=== PATIENT | male | born 1940 | race Caucasian/White ===

== ENCOUNTER 2016-09-10 08:46 | Observation (INO) | payer MEDICARE, OTHER ==
[~2016-09-10] VITALS: Ht 170.2 cm; Wt 82.7 kg
--- NOTE | ~2016-09-10 | HEMODYNAMI ---
PATIENT:OKSANA JENNINGS MEDICAL RECORD: [id number] : 36 LOCATION:[facility] ADMISSION DATE: 09/10/16 Generatedon:09/10/201613:42 Patient name: OKSANA JENNINGS Patient #: [id number] SSN: DO B: 1940 Date of study: 09/10/2016 Page: Of Hemodynamic Procedure Report Patient Data Patient Demographics Procedure consent was obtained First Name: OKSANA Gender: Male Last Name: MICHAELA : 1940 Patient #: [id number] Age: 76 year(s) Race: Additional ID: [id number] Contact details Address: [address] [place] [address] [facility] State: [place] City: [place] Zip code: [address] Past Medical History History of disease Date Diagnosis Comments CAD Hypertension Diabetes Allergies Allergen Reaction Date Comments Reported Other allergy 08/12/2014 Benadryl, Bactrim Other allergy 09/10/2016 Bactrim, Benadryl Admission Admission Data Admission Date: 09/10/2016 Admission Time: 8:46 Lab Results Lab Result Date: 09/10/2016 Lab Result Time: 0:00 Biochemistry Name Units Result Min Max CK-MB ng/ml 2.1 --(--*-)-- 0 3.6 Creatinine mg/dl 2.8 --(----)-* 0.6 1.3 Creatinine l 161 --(--*-)-- 21 215 Kinase Troponin l ng/ml 0.027 --(-*--)-- 0 0.06 CBC Name Units Result Min Max Hemoglobin g/dl 10.5 *-(----)-- 13.5 17.5 Procedure Procedure Types Cath Procedure Diagnostic Procedure LHC Coronaries only PCI Procedure Coronary Stent Initial Miscellaneous Procedures Moderate Sedation up to 45 minutes Procedure Description Procedure Date Procedure Date: 09/10/2016 Procedure Start Time: 13:12 Procedure End Time: 13:38 Procedure Staff Name Function Trevon Cooney MD Performing Physician Ashutosh Tello RT Scrub Tiffanie Molina RN Nurse Tiffani Nelson RT Monitor Procedure Data Cath Procedure Fluoroscopy Diagnostic fluoroscopy Total fluoroscopy Time: 4.9 time: 4.9 min min Diagnostic fluoroscopy Total fluoroscopy dose: dose: 743.75 mGy 743.75 mGy Contrast Material Contrast Material Type Amount (ml) Isovue 300 58 Entry Location Entry Primary Successful Side Size Upsize Upsize Entry Closure Becker ccessful Closure Location (Fr) 1 (Fr) 2 (Fr) Remarks Device Remarks Radial Right 6 Fr Mechanical artery Short Compression Femoral Right 5 Fr 6 Fr Exoseal artery Short Estimated blood loss: 10 ml Diagnostic catheters Device Type Used For End Catheter Placement Cordis 5Fr 3DRC Catheter Right Coronary (MP) Angiography Cordis 5Fr JL 4.0 Left Coronary Catheter (MP) Angiography Terumo 5Fr Harman 110cm Procedure catheter Procedure Complications No complications Procedure Medications Medication Administration Route Dosage Oxygen NC 2 l/min Heparin Flush Bag added to field 2 bags (1000units/500ml NS) Lidocaine 2% added to field 20 Radial Cocktail added to field 1 syringe (Verapomil 2mg/Nitro 400mcg/Heparin 1500units) Fentanyl I.V. 50 mcg Versed I.V. 1 mg Fentanyl I.V. 50 mcg Versed I.V. 1 mg Radial Cocktail I.A. 1 syringe (Verapomil 2mg/Nitro 400mcg/Heparin 1500units) Versed I.V. 0.5 mg Versed I.V. 0.5 mg Versed I.V. 0.5 mg Heparin Bolus I.V. 4000 units Hemodynamics Rest HGB: 10.5 (g/dl) Heart Rate: 72 (bpm) Snapshots Pre Cath Intra NCS Post Cath Vital Signs Time Heart Resp SPO2 NIBP (mmHg) Rhythm Pain Sedation Rate (ipm) (%) Status Level (bpm) 12:47:19 71 18 98 134/69(122) NSR 0 (11) 10(A) , No pain 12:51:53 61 20 98 141/61(96) NSR 0 (11) 10(A) , No pain 12:56:28 62 21 96 143/70(89) NSR 0 (11) 10(A) , No pain 13:01:07 61 18 97 149/64(121) NSR 0 (11) 9(A) , No pain 13:05:45 61 16 96 147/70(97) NSR 0 (11) 9(A) , No pain 13:10:22 66 19 99 140/72(85) NSR 0 (11) 9(A) , No pain 13:14:48 66 16 92 110/66(83) NSR 0 (11) 9(A) , No pain 13:19:12 62 18 95 129/64(100) NSR 0 (11) 9(A) , No pain 13:23:38 63 16 96 120/64(80) NSR 0 (11) 9(A) , No pain 13:28:06 65 18 98 132/60(101) NSR 0 (11) 9(A) , No pain 13:32:39 61 19 99 137/63(80) NSR 0 (11) 9(A) , No pain 13:37:13 61 9 98 131/62(88) NSR 0 (11) 9(A) , No pain Medications Time Medication Route Dose Verified Delivered Reason Note s Effectiveness by by 12:30:08 Oxygen NC 2 l/min Tiffanie Tiffanie used for Molina Molina chief dog license inspector RN 12:30:15 Heparin Flush added 2 bags Tiffanie Tiffanie used for Bag to Molina Molina procedure (1000units/500ml field RN RN NS) 12:30:23 Lidocaine 2% added 20ml Tiffanie Tiffanie used for to vial Molina Molina procedure field RN RN 12:53:55 Radial Cocktail added 1 Tiffanie Tiffanie used for (Verapomil to syringe Molina Molina procedure 2mg/Nitro field RN RN 400mcg/Heparin 1500units) 13:00:37 Fentanyl I.V. 50 mcg Tiffanie Tiffanie for sedation Molina Molina RN RN 13:00:41 Versed I.V. 1 mg Tiffanie Tiffanie for sedation Molina Molina RN RN 13:12:19 Fentanyl I.V. 50 mcg Tiffanie Tiffanie for sedation Molina Molina RN RN 13:12:23 Versed I.V. 1 mg Tiffanie Tiffanie for sedation Molina Molina RN RN 13:13:44 Radial Cocktail I.A. 1 Tiffaniemarlyn Lester for (Verapomil syringe Molina Ivet soto 2mg/Nitro RN 400mcg/Heparin 1500units) 13:13:50 Versed I.V. 0.5 mg Tiffanie Tiffanie for sedation Jesse Molina RN, RN 13:16:25 Versed I.V. 0.5 mg Tiffanie Tiffanie for sedation Jesse Molina RN RN 13:26:56 Versed I.V. 0.5 mg Tiffanie Tiffanie for sedation Jesse Molina RN RN 13:27:05 Heparin Bolus I.V. 4000 Tiffanie Tiffanie for units Jesse Molina anticoagulation RN court orderly Log Time Note 12:26:25 Tiffani Counts RT(R) sent for patient. Start room use. 12:: Time tracking: Regular hours 12::29 Plan of Care:Hemodynamics will remain stable., Cardiac rhythm will remain stable., Comfort level will be maintained., Respiratory function will remain adequate., Patient/ family verbilizes understanding of procedure., Procedure tolerated without complication., Recovers from procedure without complications.. 12:30:08 Oxygen 2 l/min NC was administered by Tiffanie Molina RN; used for procedure; 12:30:15 Heparin Flush Bag (1000units/500ml NS) 2 bags added to field was administered by Tiffanie Molina RN; used for procedure; 12:30:23 Lidocaine 2% 20ml vial added to field was administered by Tiffanie Molina RN; used for procedure; 12:44:40 Vital chart was started 12:44:58 Patient received from Pre/Post Procedure Room to CCL 3 Alert and oriented. Tansferred to table in Supine position. 12:44:59 Warm blankets applied, and catherine hugger turned on for patient comfort. 12:44:59 Correct patient and procedure confirmed by team. 12:45:01 Signed procedure consent form obtained from patient. 12:45:01 ECG and BP/O2 sat monitors applied to patient. 12:45:02 Full Disclosure recording started 12:45:07 Rhythm: sinus rhythm 12:45:23 H&P Date Dictated: 09/06/2016 Within 30 days and on chart., H&P Addendum completed by physician on day of procedure. (MUST COMPLETE FOR ALL OUTPATIENTS). 12:45:24 Pre-procedure instructions explained to patient. 12:45:24 Pre-op teaching completed and patient verbalized understanding. 12:45:25 Family in waiting room. 12:45:28 Patient NPO since Midnight. 12:45:45 Patient allergic to Other allergyBactrim, Benadryl 12:45:48 Is the patient allergic to Iodine/contrast media? No. 12:46:00 Is patient on blood thinner?Yes 12:46:02 ACC The patient was administered the following blood thiners within the last 24 hours: ACCPlavix 12:46:04 Patient diabetic? No. 12:46:08 Previous problem with sedation/anesthesia? No ? 12:46:08 Snore? Yes 12:46:09 Sleep apnea? No 12:46:11 Deviated septum? No 12:46:11 Opens mouth fully? Yes 12:46:12 Sticks out tongue? Yes 12:46:14 Airway obstruction? No ? 12:46:16 Dentures? Yes In 12:46:19 Pre procedure: right dorsailis pedis pulse 2+ Normal; easily identifiable; not easily obliterated 12:46:30 Modified Jason's test Ulnar < 7 seconds 12:46:34 Patient pain scale 0/10 ?. 12:46:46 IV patent on arrival in left antecubital with 0.9% NaCl at [facility]. 12:47:47 Lab Result : Creatinine 2.8 mg/dl 12:47:47 Lab Result : Creatinine Kinase 161 l 12:47:47 Lab Result : CK-MB 2.1 ng/ml 12:47:47 Lab Result : Hemoglobin 10.5 g/dl 12:47:47 Lab Result : Troponin l 0.027 ng/ml 12:51:37 Baseline sample Acquired. 12:51:41 Lab results completed and on chart. 12:51:44 Right Radial & Right Groin area was prepped with chlora-prep and draped in sterile fashion 12:51:45 Alarms reviewed by R. N. 12:51:45 Sharps counted by scrub and verified by R.N. 12:52:09 Use device set Radial Dx 12:52:10 Acist Syringe opened to sterile field. 12:52:10 Medline Cath Pack opened to sterile field. 12:52:11 Bag Decanter opened to sterile field. 12:52:11 Terumo 6Fr Slender Glidesheath opened to sterile field. 12:52:12 St Pj 260cm J .035 wire opened to sterile field. 12:52:12 Acist Hand Control opened to sterile field. 12:52:13 Acist Manifold opened to sterile field. 12:52:14 Tegaderm 4 x 4 opened to sterile field. 12:53:55 Radial Cocktail (Verapomil 2mg/Nitro 400mcg/Heparin 1500units) 1 syringe added to field was administered by Tiffanie Molina RN; used for procedure; 13:00:02 Zero performed for pressure channel P1 13:00:10 Final Timeout: patient, procedure, and site verified with staff and physician. All members of the team are in agreement. 13:00:13 Right Radial site verified by team. 13:00:16 Physical assessment completed. ASA score P 2 - A patient with mild systemic disease as per Trevon Cooney MD. 13:00:19 Sedation plan: IV Moderate Sedation Versed, Fentanyl 13:00:37 Fentanyl 50 mcg I.V. was administered by Tiffanie Molina RN; for sedation; 13:00:41 Versed 1 mg I.V. was administered by Tiffanie oMlina RN; for sedation; 13:12:13 Procedure started. 13:12:18 Local anesthetic to right radial artery with Lidocaine 2% by Trevon Cooney MD.INITIAL ACCESS ONLY 13:12:19 Fentanyl 50 mcg I.V. was administered by Tiffanie Molina RN; for sedation; 13:12:23 Versed 1 mg I.V. was administered by Tiffanie Molina RN; for sedation; 13:12:46 A 6 Fr Short sheath was inserted into the Right Radial artery 13:13:42 A Terumo 5Fr Harman 110cm catheter was advanced over the wire and used for Procedure. removed unable to cannulate 13:13:44 Radial Cocktail (Verapomil 2mg/Nitro 400mcg/Heparin 1500units) 1 syringe I.A. was administered by Trevon Cooney MD; for vasodilation; 13:13:50 Versed 0.5 mg I.V. was administered by Tiffanie Molina RN; for sedation; 13:16:16 Catheter removed. 13:16:20 Local anesthetic to right femoral artery with Lidocaine 2% by Trevon Cooney MD.ADDITIONAL ACCESS 13:16:25 Versed 0.5 mg I.V. was administered by Tiffanie Molina RN; for sedation; 13:16:28 A 5 Fr sheath was inserted into the Right Femoral artery 13:16:37 Use device set Multipack Set 13:16:41 Diagnostic Infinity 5Fr Multipack catheter opened to sterile field. 13:19:30 Terumo 5Fr Carson Sheath opened to sterile field. 13:19:58 SS [place] wire advanced. 13:20:24 A Cordis 5Fr 3DRC Catheter (MP) was advanced over the wire and used for Right Coronary Angiography. reomoved, unable to cannulate 13:21:17 Terumo ANGLE 260cm glide wire opened to sterile field. 13:22:35 Terumo 6Fr Carson Sheath opened to sterile field. 13:22:36 [employer] Launcher 6Fr HS I guide catheter opened to sterile field. 13:23:09 Sheath upsized to a 6 Fr Short. 13:23:24 6 Fr HS I guide catheter was inserted over the wire 13:23:30 RCA angiography performed. 13:23:47 Guide catheter removed. 13:23:53 A Cordis 5Fr JL 4.0 Catheter (MP) was advanced over the wire and used for Left Coronary Angiography. 13:24:03 Jorgensen Whisper J 300cm 0.014 guide wire opened to sterile field. 13:24:03 Lateral SV BasixCompak Inflation Kit opened to sterile field. 13:25:44 Cordis 6FR XBLAD 4.0 guide catheter opened to sterile field. 13:26:48 6 Fr XBLAD 4.0 guide catheter was inserted over the wire 13:26:56 Versed 0.5 mg I.V. was administered by Tiffanie Molina RN; for sedation; 13:27:05 Heparin Bolus 4000 units I.V. was administered by Tiffanie Molina RN; for anticoagulation; 13:29:05 Whisper wire advanced. 13:29:10 Inflation number: 1 A [place] Bracken 2.0 X 15 balloon was prepped and advanced across the Mid CX, then inflated to 17 MISSAEL for 0:11 (min:sec). 13:30:01 Balloon removed over the wire. 13:30:55 Inflation Number: 2 A Biofreedom 2.5 x 18 stent (No Cost Implant) was prepped and advanced across the Mid CX. The stent was deployed at 13 MISSAEL for 0:08 (min:sec). 13:31:15 Stent catheter was removed intact over wire. 13:31:15 Wire removed. 13:31:16 Guide catheter removed. 13:31:26 Sheath removed intact; hemostasis achieved with Exoseal to the Right Femoral artery. 13:31:28 Procedure ended.(Physican Out) 13:33:34 Fluoroscopy time 04.90 minutes. 13:33:39 Flurop Dose total: 743.75 13:33:39 Fluoroscopy dose: 743.75 mGy 13:33:58 Tegaderm 4 x 4 opened to sterile field. 13:34:03 Contrast amount:Isovue 300 58ml. 13:34:04 Sharps counted by scrub and verified by R.N. 13:34:05 Insertion/operative site no bleeding no hematoma. 13:34:09 Post-op/insertion site Right Femoral artery dressed using a 4 x 4 and Tegaderm. 13:34:31 Sheath removed intact; hemostasis achieved with Mechanical Compression to the Right Radial artery. 13:34:36 TR band inflated with 12cc of air. 13:34:41 Post right femoral artery:stable, clean and dry 13:34:47 Post right radial artery:stable, clean and dry 13:34:48 Post Procedure Pulses reassessed and unchanged 13:34:51 Post-procedure physical assessment completed. ASA score P 2 - A patient with mild systemic disease as per Trevon Cooney MD. 13:34:53 Post procedure rhythm: unchanged. 13:34:56 Estimated blood loss: 10 ml 13:34:57 Post procedure instruction explained to patient.Patient verbalizes understanding. 13:34:58 Patient needs reinforcement of post procedure teaching. 13:35:16 Procedure type changed to Cath procedure, Diagnostic procedure, LHC, Coronaries only, PCI procedure, Coronary Stent Initial, Miscellaneous Procedures, Moderate Sedation up to 45 minutes 13:35:17 Procedure and supply charges have been captured, reviewed, submitted and are correct. 13:35:21 Procedure Complication : No complications 13:35:23 See physician's report for complete and final results. 13:35:49 Terumo TR Band Standard opened to sterile field. 13:38:23 Vital chart was stopped 13:38:25 Report given to PCU. 13:38:28 Patient transfered to PCU with Bed. 13:38:36 Procedure ended. 13:38:36 Full Disclosure recording stopped 13:38:41 End room use (Document Last) 13:39:24 Cordis 6Fr Exoseal opened to sterile field. Intervention Summary Intervention Notes Time ActionType Lesion and Equipment Action# Pressure Duration Attributes Used 13:29:10 Inflate Mid CX [place] Sci 1 17 00:11 balloon Bracken 2.0 X 15 balloon 13:30:55 Place stent Mid CX Biofreedom 2 13 00:08 2.5 x 18 stent (No Cost Implant) Device Usage Item Name Manufacture Quantity Catalog Number Hospital Part Current Mini mal Lot# / Charge Number Stock Stock Serial# Code Acist Acist 1 81709 [id number] 259942 192716 20 Syringe Medical Systems Inc Medline Cardinal 1 [id number] 984741 55260 511175 5 Cath Pack Health Bag Microtek 1 2002S 772168 33147 332565 5 DecClaritics Medical Inc. Terumo 6Fr Terumo 1 [id number] 625530 651862 756257 [address] Pj St Pj 1 663321 306467 004974 220673 30 260cm J .035 wire Acist Hand Acist 1 26257 846432 944534 218048 5 Control Medical Systems Inc Acist Acist 1 10099 606003 892068 163020 5 Manifold Medical Systems Inc Tegaderm 4 3M 2 1626W 858273 176095 370397 5 x 4 Diagnostic Cardinal 1 [id number] 812505 02463 782179 30 Infinity Health 5Fr Multipack catheter Terumo 5Fr Terumo 1 [id number] 390847 824918 093288 40 Carson Sheath Cordis 5Fr Cardinal 1 651393 5 3DRC Health Catheter (MP) Terumo Terumo 1 [id number] 128538 911817 791360 5 ANGLE 260cm glide wire Terumo 6Fr Terumo 1 [id number] 890491 136500 561680 40 Carson Sheath Medtronic Medtronic 1 [id number] 347791 23232 371266 1 Launcher 6Fr HS I guide catheter Cordis 5Fr Cardinal 1 440572 5 JL 4.0 Health Catheter (MP) Jorgensen Jorgensen 1 [id number] 850027 437037 425158 5 Whisper J Vascular 300cm 0.014 guide wire Merit Merit 1 QU4371 330060 591149 865640 15 BasixCompak Medical Inflation Kit Cordis 6FR Cardinal 1 [id number] 033245 028598 677869 3 XBLAD 4.0 Health guide catheter [place] Sci [place] 1 [id number] 845762 147760 155130 1 [id number] Liquid State 2.0 X 15 balloon Biofreedom Biosensors 1 [id number] 208019 588471 5 [id number] 2.5 x 18 [place] SA stent (No Cost Implant) Terumo TR Terumo 1 [id number] 706806 669520 949756 40 Band Standard Cordis 6Fr Cardinal 1 EX600 146038 388885 050064 10 MOVL Terumo 5Fr Terumo 1 [id number] 337586 364239 761480 5 Harman 110cm catheter Signature Audit [place] Stage Time Signature Unsigned Intra-Procedure 09/10/2016 Tiffani 1:42:46 PM Counts RT(R) Signatures Monitor : Tiffani Signature : Counts RT Date : Time : [place] [id number] [place] [address]
--- NOTE | ~2016-09-10 | HEMODYNAMI ---
PATIENT:OKSANA JENNINGS MEDICAL RECORD: [id number] : 36 LOCATION:[facility] D.2114 ADMISSION DATE: 09/11/16 Generatedon:09/14/201615:29 Patient name: OKSANA JENNINGS Patient #: [id number] SSN: DO B: 1940 Date of study: 09/11/2016 Page: Of Hemodynamic Procedure Report Patient Data Patient Demographics Procedure consent was obtained First Name: OKSANA Gender: Male Last Name: MICHAELA : 1940 Patient #: [id number] Age: 76 year(s) Race: Additional ID: [id number] Contact details Address: [address] [place] [address] [facility] State: [place] City: [place] Zip code: [address] Past Medical History History of disease Date Diagnosis Comments CAD Hypertension Diabetes Allergies Allergen Reaction Date Comments Reported Other allergy 08/12/2014 Benadryl, Bactrim Other allergy 09/10/2016 Bactrim, Benadryl Admission Admission Data Admission Date: 09/11/2016 Admission Time: 10:06 Room #: D.2114 Height (in.): 67 BSA: 1.94 (m2) Height (cm.): 170.18 BMI: 28.56 (kg/m2) Weight (lbs.): 182.37 Weight (kg.): 82.72 Lab Results Lab Result Date: 09/11/2016 Lab Result Time: 7:05 Biochemistry Name Units Result Min Max BUN mg/dl 41 --(----)-* 7 18 CK-MB ng/ml 1.5 --(-*--)-- 0 3.6 Creatinine mg/dl 2.7 --(----)-* 0.6 1.3 Creatinine l 112 --(-*--)-- 21 215 Kinase Troponin l ng/ml 0.175 --(----)-* 0 0.06 CBC Name Units Result Min Max Hematocrit % 34 *-(----)-- 42 54 Hemoglobin g/dl 10.5 *-(----)-- 13.5 17.5 Procedure Procedure Types Cath Procedure PCI Procedure Coronary Stent Initial Miscellaneous Procedures Moderate Sedation up to 15 minutes Procedure Description Procedure Date Procedure Date: 09/11/2016 Procedure Start Time: 9:48 Procedure End Time: 10:11 Procedure Staff Name Function Vito Felix RT Monitor Trevon Cooney MD Performing Physician Lorrie Hallman RN Nurse Ashutosh Tello RT Scrub Procedure Data Cath Procedure Fluoroscopy Diagnostic fluoroscopy Total fluoroscopy Time: 3.9 time: 3.9 min min Diagnostic fluoroscopy Total fluoroscopy dose: 221 dose: 221 mGy mGy Contrast Material Contrast Material Type Amount (ml) Isovue 300 54 Entry Location Entry Primary Successful Side Size Upsize Upsize Entry Closure Succes sful Closure Location (Fr) 1 (Fr) 2 (Fr) Remarks Device Remarks Femoral Left 5 Fr 6 Fr Exoseal artery Short Estimated blood loss: 10 ml Procedure Complications No complications Procedure Medications Medication Administration Route Dosage Oxygen NC 2 l/min Heparin Flush Bag added to field 2 bags (1000units/500ml NS) Lidocaine 2% added to field 20 Versed I.V. 1 mg Fentanyl I.V. 50 mcg Versed I.V. 1 mg Fentanyl I.V. 50 mcg Heparin Bolus I.V. 4000 units Fentanyl I.V. 50 mcg Versed I.V. 0.5 mg Hemodynamics Rest BSA: 1.94 (m2) HGB: 10.5 (g/dl) O2 Consumption: Estimated: 182.09 (ml/min) O2 Co nsumption indexed: Estimated:93.86 (ml/min/m) Heart Rate: 15 (bpm) Snapshots Pre Cath Intra NCS Post Cath Vital Signs Time Heart Resp SPO2 NIBP (mmHg) Rhythm Pain Sedation Rate (ipm) (%) Status Level (bpm) 9:21:43 80 16 100 Measuring NSR 0 (11) 10(A) , No pain 9:25:36 74 14 100 192/114(145) NSR 0 (11) 10(A) , No pain 9:30:35 67 14 99 Measuring NSR 0 (11) 10(A) , No pain 9:37:02 64 16 100 170/83(156) NSR 0 (11) 10(A) , No pain 9:41:10 61 16 100 139/79(127) NSR 0 (11) 10(A) , No pain 9:46:09 70 18 99 Measuring NSR 0 (11) 10(A) , No pain 9:47:31 68 16 98 Time NSR 0 (11) 10(A) Exceeded , No pain 9:49:04 73 16 95 181/70(140) NSR 0 (11) 9(A) , No pain 9:53:36 72 17 96 186/72(133) NSR 0 (11) 9(A) , No pain 9:58:04 70 17 95 177/71(132) NSR 0 (11) 9(A) , No pain 10:02:34 73 17 99 181/72(121) NSR 0 (11) 9(A) , No pain 10:07:05 66 9 98 175/70(128) NSR 0 (11) 9(A) , No pain Medications Time Medication Route Dose Verified Delivered Reason Notes Effectiveness by by 9:21:25 Oxygen NC 2 Trevon Lorrie Per physician l/min Ivet Hallman RN 9:21:32 Heparin Flush added 2 Trevon Lorrie used for Bag to bags Ivet Hallman RN procedure (1000units/500ml field NS) 9:21:40 Lidocaine 2% added 20ml Trevon Lorrie used for to vial Ivet Hallman RN procedure field 9:43:39 Versed I.V. 1 mg Trevon Lorrie for sedation Ivet Hallman RN 9:43:45 Fentanyl I.V. 50 Trevon Lorrie for sedation mcg Ivet Hallman RN 9:46:03 Versed I.V. 1 mg Trevon Lorrie for sedation Ivet Hallman RN 9:46:05 Fentanyl I.V. 50 Trevon Lorrie for sedation mcg Ivet Hallman RN 9:48:20 Fentanyl I.V. 50 Trevon Lorrie for sedation mcg Ivet Hallman RN 9:48:32 Versed I.V. 0.5 Trevon Lorrie for sedation mg Ivet Hallman RN 9:52:02 Heparin Bolus I.V. 4000 Trevon Lorrie for dose units Ivet Hallman RN anticoagulation verified with dr cooney Procedure Log Time Note 9:00:31 Vito Felix RT(R) sent for patient. Start room use. 9:00:32 Time tracking: Regular hours 9:00:37 Plan of Care:Hemodynamics will remain stable., Cardiac rhythm will remain stable., Comfort level will be maintained., Respiratory function will remain adequate., Patient/ family verbilizes understanding of procedure., Procedure tolerated without complication., Recovers from procedure without complications.. 9:11:44 H&P Date Dictated: 09/06/2016 Within 30 days and on chart.. 9:12:32 Lab Result : Hemoglobin 10.5 g/dl 9:12:32 Lab Result : Hematocrit 34 % 9:12:32 Lab Result : BUN 41 mg/dl 9:12:32 Lab Result : Creatinine 2.7 mg/dl 9::53 Lab Result : BUN 44 mg/dl 9:13:21 Lab Result : Troponin l 0.175 ng/ml 9:13:21 Lab Result : Creatinine Kinase 112 l 9:13:21 Lab Result : CK-MB 1.5 ng/ml 9:13:40 Lab Result : Hematocrit 34 % 9:13:47 Patient Height : 67 cm 9:13:54 Patient Weight : 182.37 kg 9:18:07 Patient received from PCU to CCL 1 Alert and oriented. Tansferred to table in Supine position. 9:18:08 Warm blankets applied, and catherine hugger turned on for patient comfort. 9:18:09 Correct patient and procedure confirmed by team. 9:18:10 Signed procedure consent form obtained from patient. 9:18:11 ECG and BP/O2 sat monitors applied to patient. 9:19:53 Vital chart was started 9:21:25 Oxygen 2 l/min NC was administered by Lorrie Hallman RN; Per physician; 9:21:32 Heparin Flush Bag (1000units/500ml NS) 2 bags added to field was administered by Lorrie Hallman RN; used for procedure; 9:21:40 Lidocaine 2% 20ml vial added to field was administered by Lorrie Hallman RN; used for procedure; 9:28:36 Baseline sample Acquired. 9:28:43 Rhythm: sinus rhythm 9:28:58 Full Disclosure recording started 9:29:00 Pre-op teaching completed and patient verbalized understanding. 9:29:00 Pre-procedure instructions explained to patient. 9:29:02 Family in waiting room. 9:29:04 Patient NPO since Midnight. 9:29:06 Is the patient allergic to Iodine/contrast media? No. 9:30:09 Is patient on blood thinner?Yes 9:30:11 ACC The patient was administered the following blood thiners within the last 24 hours: ACCPlavix 9:30:14 Patient diabetic? Yes. 9:30:15 If diabetic: On Metformin? Unknown 9:30:18 Previous problem with sedation/anesthesia? No ? 9:30:20 Snore? Yes 9:30:21 Sleep apnea? No 9:30:22 Deviated septum? No 9:30:23 Opens mouth fully? Yes 9:30:24 Sticks out tongue? Yes 9:30:25 Airway obstruction? No ? 9:30:28 Dentures? Yes OUT 9:30:32 Pre procedure: left dorsailis pedis pulse 1+ Palpable, but thready & weak; easily obliterated 9:30:34 Patient pain scale 0/10 ?. 9:30:40 IV patent on arrival in left forearm with 0.9% NaCl at [facility]. 9:30:41 Lab results completed and on chart. 9:30:44 Left groin area was prepped with chlora-prep and draped in sterile fashion 9:30:52 Sharps counted by scrub and verified by R.N. 9:30:52 Alarms reviewed by R. N. 9:39:20 Use device set Femoral PCI 9:39:22 Tegaderm 4 x 4 opened to sterile field. 9:39:23 Acist Manifold opened to sterile field. 9:39:24 Acist Hand Control opened to sterile field. 9:39:24 Acist Syringe opened to sterile field. 9:39:25 Medline Cath Pack opened to sterile field. 9:39:25 Bag Decanter opened to sterile field. 9:39:26 Merit BasixCompak Inflation Kit opened to sterile field. 9:39:26 Jorgensen Whisper J 300cm 0.014 guide wire opened to sterile field. 9:39:26 Terumo 6Fr [place] Sheath opened to sterile field. 9:39:26 St Pj 260cm J .035 wire opened to sterile field. 9:41:33 Zero performed for pressure channel P1 9:43:20 --------ALL STOP TIME OUT------ 9:43:21 Final Timeout: patient, procedure, and site verified with staff and physician. All members of the team are in agreement. 9:43:23 Left groin site verified by team. 9:43:27 Physical assessment completed. ASA score P 2 - A patient with mild systemic disease as per Trevon Cooney MD. 9:43:32 Sedation plan: IV Moderate Sedation Versed, Fentanyl 9:43:39 Versed 1 mg I.V. was administered by Lorrie Hallman RN; for sedation; 9:43:45 Fentanyl 50 mcg I.V. was administered by Lorrie Hallman RN; for sedation; 9:45:37 MedPeach [employer] Lily Launcher 6Fr HS II SH guide catheter opened to sterile field. 9:46:03 Versed 1 mg I.V. was administered by Lorrie Hallman RN; for sedation; 9:46:05 Fentanyl 50 mcg I.V. was administered by Lorrie Hallman RN; for sedation; 9:48:00 Procedure started. 9:48:05 Local anesthetic to left femerol artery with Lidocaine 2% by Trevon Cooney MD.INITIAL ACCESS ONLY 9:48:20 Fentanyl 50 mcg I.V. was administered by Lorrie Hallman RN; for sedation; 9:48:32 Versed 0.5 mg I.V. was administered by Lorrie Hallman RN; for sedation; 9:49:27 Terumo 5Fr [place] Sheath opened to sterile field. 9:49:53 A 5 Fr sheath was inserted into the Left Femoral artery 9:50:23 Terumo ANGLE 260cm glide wire opened to sterile field. 9:51:42 Unable to advance sheath wire, Glidewire advanced into distal Aorta. 9:51:51 Sheath upsized to a 6 Fr Short. 9:52:02 Heparin Bolus 4000 units I.V. was administered by Lorrie Hallman RN; for anticoagulation; dose verified with dr cooney 9:52:10 6 Fr HS 2 SH guide catheter was inserted over the wire 9:52:17 ACC PCI Site: pRCA has 80% stenosis. 9:52:24 ACC PCI Site: mRCA has 80% stenosis. 9:52:26 ACC Pre-intervention MARIA C Flow is 3. 9:53:37 Whisper wire advanced. 9:53:55 Wire advanced across lesion. 9:56:28 Inflation number: 1 A Tollhouse [employer] Huron 3.0 X 15 balloon was prepped and advanced across the Mid RCA, then inflated to 13 MISSAEL for 0:10 (min:sec). 9:56:42 Balloon removed over the wire. 9:58:02 Inflation Number: 2 A Biofreedom 2.75 x 14 stent (No Cost Implant) was prepped and advanced across the Mid RCA. The stent was deployed at 15 MISSAEL for 0:10 (min:sec). 9:58:41 Stent catheter was removed intact over wire. 10:00:09 Inflation Number: 3 A Biofreedom 3.0 x 14 stent (No Cost Implant) was prepped and advanced across the Mid RCA. The stent was deployed at 17 MISSAEL for 0:10 (min:sec). 10:00:29 Stent catheter was removed intact over wire. 10:00:30 Wire removed. 10:00:31 Guide catheter removed. 10:00:33 ACC Post-intervention MARIA C Flow is 3. 10:00:42 Cordis 6Fr Exoseal opened to sterile field. 10:01:10 Sheath removed intact; hemostasis achieved with Exoseal to the Left Femoral artery. 10:01:23 Procedure ended.(Physican Out) 10:01:37 Fluoroscopy time 03.90 minutes. 10:01:40 Fluoroscopy dose: 221 mGy 10:01:40 Flurop Dose total: 221 10:01:44 Contrast amount:Isovue 300 54ml. 10:01:45 Sharps counted by scrub and verified by R.N. 10:01:50 Insertion/operative site no bleeding no hematoma. 10:01:53 Post-op/insertion site Left Femoral artery dressed using a 4 x 4 and Tegaderm. 10:01:54 Post Procedure Pulses reassessed and unchanged 10:01:57 Post-procedure physical assessment completed. ASA score P 2 - A patient with mild systemic disease as per Trevon Cooney MD. 10:02:07 Post procedure rhythm: unchanged. 10:02:09 Estimated blood loss: 10 ml 10:02:12 Patient needs reinforcement of post procedure teaching. 10:02:12 Post procedure instruction explained to patient.Patient verbalizes understanding. 10:02:18 Procedure type changed to Cath procedure, PCI procedure, Coronary Stent Initial, Miscellaneous Procedures, Moderate Sedation up to 15 minutes 10:02:22 Procedure Complication : No complications 10:03:31 Procedure and supply charges have been captured, reviewed, submitted and are correct. 10:11:12 Vital chart was stopped 10:11:13 See physician's report for complete and final results. 10:11:15 Report given to PCU. 10:11:17 Patient transfered to PCU with Bed. 10:11:20 Full Disclosure recording stopped 10:11:20 Procedure ended. 10:11:23 End room use (Document Last) Intervention Summary Intervention Notes Time ActionType Lesion and Equipment Action# Pressure Duration Attributes Used 9:56:28 Inflate Mid RCA Tollhouse Sci 1 13 00:10 balloon Huron 3.0 X 15 balloon 9:58:02 Place stent Mid RCA Biofreedom 2 15 00:10 2.75 x 14 stent (No Cost Implant) 10:00:09 Place stent Mid RCA Biofreedom 3 17 00:10 3.0 x 14 stent (No Cost Implant) Device Usage Item Name Manufacture Quantity Catalog Number Hospital Part Current Mini mal Lot# / Charge Number Stock Stock Serial# Code Tegaderm 4 1 [id number] [id number] [id number] 5 x 4 Acist Acist 1 73251 382276 673686 262414 5 Manifold Medical Systems Inc Acist Acist 1 39610 449733 069710 932955 20 Syringe Medical Systems Inc Acist Hand Acist 1 26475 033882 094653 622577 5 Control Medical Systems Inc Bag Microtek 1 2002S 279083 72345 360270 5 DecPGA TOUR [employer]store [employer] Medline Cardinal 1 [id number] 787147 55718 690906 5 Cath Magnetecs Terumo 6Fr Terumo 1 [id number] 213630 689783 583787 [address] P[address] St Pj 1 073134 136157 632148 003925 30 260cm J .035 wire Merit Merit 1 [id number] 524801 315036 886427 15 BasPROFICIO Medical Inflation Kit Medtronic Medtronic 1 [id number] 239490 75285 979153 1 Launcher 6Fr HS II SH guide catheter Terumo 5Fr Terumo 1 [id number] 485366 940330 275923 40 [place] Sheath Terumo Terumo 1 [id number] 506028 981772 792308 5 ANGLE 260cm glide wire Tollhouse Sci Tollhouse 1 [id number] 935639 532771 681583 1 [id number] Kiwiple 3.0 X 15 balloon Biofreedom Biosensors 1 [facility]2-3303 861975 007688 5 [id number] 2.75 x 14 [place] SA stent (No Cost Implant) Biofreedom Biosensors 1 [facility]2-7097 825927 395100 5 [id number] 3.0 x 14 [employer] SA stent (No Cost Implant) Cordis 6Fr Cardinal 1 [id number] 395637 681167 432775 10 [facility] Jorgensen Jorgensen 1 [id number] 926379 191064 666052 5 Whisper J Vascular 300cm 0.014 guide wire Signature Audit [place] Stage Time Signature Unsigned Intra-Procedure 09/11/2016 Vito Felix RT(R) 10:11:36 AM RT(R) 09/14/2016 3:28:42 PM Intra-Procedure 09/14/2016 Vito Felix 3:29:42 PM RT(R) Signatures Monitor : Vito Felix RT Signature : Date : Time : [place] [id number] [place] [address]
--- NOTE | ~2016-09-10 | HEMODYNAMI ---
PATIENT:OKSANA JENNINGS MEDICAL RECORD: [id number] : 36 LOCATION:[facility] D.2114 ADMISSION DATE: 09/10/16 Generatedon:09/11/201610:11 Patient name: OKSANA JENNINGS Patient #: [id number] SSN: DO B: 1940 Date of study: 09/11/2016 Page: Of Hemodynamic Procedure Report Patient Data Patient Demographics Procedure consent was obtained First Name: OKSANA Gender: Male Last Name: MICHAELA : 1940 Patient #: [id number] Age: 76 year(s) Race: Additional ID: [id number] Contact details Address: [address] [place] [address] [facility] State: [place] City: [place] Zip code: [address] Past Medical History History of disease Date Diagnosis Comments CAD Hypertension Diabetes Allergies Allergen Reaction Date Comments Reported Other allergy 08/12/2014 Benadryl, Bactrim Other allergy 09/10/2016 Bactrim, Benadryl Admission Admission Data Admission Date: 09/10/2016 Admission Time: 8:46 Room #: D.2114 Height (in.): 67 BSA: 1.94 (m2) Height (cm.): 170.18 BMI: 28.56 (kg/m2) Weight (lbs.): 182.37 Weight (kg.): 82.72 Lab Results Lab Result Date: 09/11/2016 Lab Result Time: 7:05 Biochemistry Name Units Result Min Max BUN mg/dl 41 --(----)-* 7 18 CK-MB ng/ml 1.5 --(-*--)-- 0 3.6 Creatinine mg/dl 2.7 --(----)-* 0.6 1.3 Creatinine l 112 --(-*--)-- 21 215 Kinase Troponin l ng/ml 0.175 --(----)-* 0 0.06 CBC Name Units Result Min Max Hematocrit % 34 *-(----)-- 42 54 Hemoglobin g/dl 10.5 *-(----)-- 13.5 17.5 Procedure Procedure Types Cath Procedure PCI Procedure Coronary Stent Initial Miscellaneous Procedures Moderate Sedation up to 15 minutes Procedure Description Procedure Date Procedure Date: 09/11/2016 Procedure Start Time: 9:48 Procedure End Time: 10:11 Procedure Staff Name Function Trevon oConey MD Performing Physician Lorrie Hallman RN Nurse Vito Felix RT Monitor Ashutosh Tello RT Scrub Procedure Data Cath Procedure Fluoroscopy Diagnostic fluoroscopy Total fluoroscopy Time: 3.9 time: 3.9 min min Diagnostic fluoroscopy Total fluoroscopy dose: 221 dose: 221 mGy mGy Contrast Material Contrast Material Type Amount (ml) Isovue 300 54 Entry Location Entry Primary Successful Side Size Upsize Upsize Entry Closure Succes sful Closure Location (Fr) 1 (Fr) 2 (Fr) Remarks Device Remarks Femoral Left 5 Fr 6 Fr Exoseal artery Short Estimated blood loss: 10 ml Procedure Complications No complications Procedure Medications Medication Administration Route Dosage Oxygen NC 2 l/min Heparin Flush Bag added to field 2 bags (1000units/500ml NS) Lidocaine 2% added to field 20 Versed I.V. 1 mg Fentanyl I.V. 50 mcg Versed I.V. 1 mg Fentanyl I.V. 50 mcg Heparin Bolus I.V. 4000 units Fentanyl I.V. 50 mcg Versed I.V. 0.5 mg Hemodynamics Rest BSA: 1.94 (m2) HGB: 10.5 (g/dl) O2 Consumption: Estimated: 182.09 (ml/min) O2 Co nsumption indexed: Estimated:93.86 (ml/min/m) Heart Rate: 15 (bpm) Snapshots Pre Cath Intra NCS Post Cath Vital Signs Time Heart Resp SPO2 etCO2 OG9nitn NIBP (mmHg) Rhythm Pain Sedatio n Rate (ipm) (%) (mmHg) (mmHg) Status Level (bpm) 9:21:43 80 16 100 0 0 Measuring NSR 0 (11) 10(A) , No pain 9:25:36 74 14 100 0 0 192/114(145) NSR 0 (11) 10(A) , No pain 9:30:35 67 14 99 0 0 Measuring NSR 0 (11) 10(A) , No pain 9:37:02 64 16 100 0 0 170/83(156) NSR 0 (11) 10(A) , No pain 9:41:10 61 16 100 0 0 139/79(127) NSR 0 (11) 10(A) , No pain 9:46:09 70 18 99 0 0 Measuring NSR 0 (11) 10(A) , No pain 9:47:31 68 16 98 0 0 Time NSR 0 (11) 10(A) Exceeded , No pain 9:49:04 73 16 95 0 0 181/70(140) NSR 0 (11) 9(A) , No pain 9:53:36 72 17 96 0 0 186/72(133) NSR 0 (11) 9(A) , No pain 9:58:04 70 17 95 0 0 177/71(132) NSR 0 (11) 9(A) , No pain 10:02:34 73 17 99 0 0 181/72(121) NSR 0 (11) 9(A) , No pain 10:07:05 66 9 98 0 0 175/70(128) NSR 0 (11) 9(A) , No pain Medications Time Medication Route Dose Verified Delivered Reason Notes Effectiveness by by 9:21:25 Oxygen NC 2 Trevon Lorrie Per physician l/min Ivet Hallman RN 9:21:32 Heparin Flush added 2 Trevon Lorrie used for Bag to bags Ivet Hallman equipment operator wage hand (1000units/500ml field NS) 9:21:40 Lidocaine 2% added 20ml Trevon Lorrie used for to vial Ivet Hallman equipment operator wage hand field 9:43:39 Versed I.V. 1 mg Trevon Lorrie for sedation Ivet Hallman RN 9:43:45 Fentanyl I.V. 50 Trevon Lorrie for sedation mcg Ivet Hallman RN 9:46:03 Versed I.V. 1 mg Trevon Lorrie for sedation Ivet Hallman RN 9:46:05 Fentanyl I.V. 50 Trevon Lorrie for sedation mcg Ivet Hallman RN 9:48:20 Fentanyl I.V. 50 Trevon Lorrie for sedation mcg Ivet Hallman RN 9:48:32 Versed I.V. 0.5 Trevon Lorrie for sedation mg Ivet Hallman RN 9:52:02 Heparin Bolus I.V. Emeterio Andrew for dose units Ivet Hallman RN anticoagulation verified with dr cooney Procedure Log Time Note 9:00:31 Vito Felix RT(R) sent for patient. Start room use. 9:00:32 Time tracking: Regular hours 9:00:37 Plan of Care:Hemodynamics will remain stable., Cardiac rhythm will remain stable., Comfort level will be maintained., Respiratory function will remain adequate., Patient/ family verbilizes understanding of procedure., Procedure tolerated without complication., Recovers from procedure without complications.. 9:11:44 H&P Date Dictated: 09/06/2016 Within 30 days and on chart.. 9:12:32 Lab Result : BUN 41 mg/dl 9:12:32 Lab Result : Creatinine 2.7 mg/dl 9:12:32 Lab Result : Hemoglobin 10.5 g/dl 9:12:32 Lab Result : Hematocrit 34 % 9:12:53 Lab Result : BUN 44 mg/dl 9:13:21 Lab Result : CK-MB 1.5 ng/ml 9:13:21 Lab Result : Creatinine Kinase 112 l 9:13:21 Lab Result : Troponin l 0.175 ng/ml 9:13:40 Lab Result : Hematocrit 34 % 9:13:47 Patient Height : 67 cm 9:13:54 Patient Weight : 182.37 kg 9:18:07 Patient received from PCU to CCL 1 Alert and oriented. Tansferred to table in Supine position. 9:18:08 Warm blankets applied, and ctaherine hugger turned on for patient comfort. 9:18:09 Correct patient and procedure confirmed by team. 9:18:10 Signed procedure consent form obtained from patient. 9:18:11 ECG and BP/O2 sat monitors applied to patient. 9:19:53 Vital chart was started 9:21:25 Oxygen 2 l/min NC was administered by Lorrie Hallman RN; Per physician; 9:21:32 Heparin Flush Bag (1000units/500ml NS) 2 bags added to field was administered by Lorrie Hallman RN; used for procedure; 9:21:40 Lidocaine 2% 20ml vial added to field was administered by Lorrie Hallman RN; used for procedure; 9:28:36 Baseline sample Acquired. 9:28:43 Rhythm: sinus rhythm 9:28:58 Full Disclosure recording started 9:29:00 Pre-procedure instructions explained to patient. 9:29:00 Pre-op teaching completed and patient verbalized understanding. 9:29:02 Family in waiting room. 9:29:04 Patient NPO since Midnight. 9:29:06 Is the patient allergic to Iodine/contrast media? No. 9:30:09 Is patient on blood thinner?Yes 9:30:11 ACC The patient was administered the following blood thiners within the last 24 hours: ACCPlavix 9:30:14 Patient diabetic? Yes. 9:30:15 If diabetic: On Metformin? Unknown 9:30:18 Previous problem with sedation/anesthesia? No ? 9:30:20 Snore? Yes 9:30:21 Sleep apnea? No 9:30:22 Deviated septum? No 9:30:23 Opens mouth fully? Yes 9:30:24 Sticks out tongue? Yes 9:30:25 Airway obstruction? No ? 9:30:28 Dentures? Yes OUT 9:30:32 Pre procedure: left dorsailis pedis pulse 1+ Palpable, but thready & weak; easily obliterated 9:30:34 Patient pain scale 0/10 ?. 9:30:40 IV patent on arrival in left forearm with 0.9% NaCl at O. 9:30:41 Lab results completed and on chart. 9:30:44 Left groin area was prepped with chlora-prep and draped in sterile fashion 9:30:52 Alarms reviewed by R. N. 9:30:52 Sharps counted by scrub and verified by R.N. 9:39:20 Use device set Femoral PCI 9:39:22 Tegaderm 4 x 4 opened to sterile field. 9:39:23 Acist Manifold opened to sterile field. 9:39:24 Acist Syringe opened to sterile field. 9:39:24 Acist Hand Control opened to sterile field. 9:39:25 Bag Decanter opened to sterile field. 9:39:25 Medline Cath Pack opened to sterile field. 9:39:26 Jorgensen Whisper J 300cm 0.014 guide wire opened to sterile field. 9:39:26 Terumo 6Fr [place] Sheath opened to sterile field. 9:39:26 St Pj 260cm J .035 wire opened to sterile field. 9:39:26 Merit BasixCompak Inflation Kit opened to sterile field. 9:41:33 Zero performed for pressure channel P1 9:43:20 --------ALL STOP TIME OUT------ 9:43:21 Final Timeout: patient, procedure, and site verified with staff and physician. All members of the team are in agreement. 9:43:23 Left groin site verified by team. 9:43:27 Physical assessment completed. ASA score P 2 - A patient with mild systemic disease as per Trevon Cooney MD. 9:43:32 Sedation plan: IV Moderate Sedation Versed, Fentanyl 9:43:39 Versed 1 mg I.V. was administered by Lorrie Hallman RN; for sedation; 9:43:45 Fentanyl 50 mcg I.V. was administered by Lorrie Hallman RN; for sedation; 9:45:37 Medtronic Launcher 6Fr HS II SH guide catheter opened to sterile field. 9:46:03 Versed 1 mg I.V. was administered by Lorrie Hallman RN; for sedation; 9:46:05 Fentanyl 50 mcg I.V. was administered by Lorrie Hallman RN; for sedation; 9:48:00 Procedure started. 9:48:05 Local anesthetic to left femerol artery with Lidocaine 2% by Trevon Cooney MD.INITIAL ACCESS ONLY 9:48:20 Fentanyl 50 mcg I.V. was administered by Lorrie Hallman RN; for sedation; 9:48:32 Versed 0.5 mg I.V. was administered by Lorrie Hallman RN; for sedation; 9:49:27 Terumo 5Fr [place] Sheath opened to sterile field. 9:49:53 A 5 Fr sheath was inserted into the Left Femoral artery 9:50:23 Terumo ANGLE 260cm glide wire opened to sterile field. 9:51:42 Unable to advance sheath wire, Glidewire advanced into distal Aorta. 9:51:51 Sheath upsized to a 6 Fr Short. 9:52:02 Heparin Bolus 4000 units I.V. was administered by Lorrie Hallman RN; for anticoagulation; dose verified with dr cooney 9:52:10 6 Fr HS 2 SH guide catheter was inserted over the wire 9:52:17 ACC PCI Site: pRCA has 80% stenosis. 9:52:24 ACC PCI Site: mRCA has 80% stenosis. 9:52:26 ACC Pre-intervention MARIA C Flow is 3. 9:53:37 Whisper wire advanced. 9:53:55 Wire advanced across lesion. 9:56:28 Inflation number: 1 A [employer] [place]opa 3.0 X 15 balloon was prepped and advanced across the Mid RCA, then inflated to 13 MISSAEL for 0:10 (min:sec). 9:56:42 Balloon removed over the wire. 9:58:02 Inflation Number: 2 A Biofreedom 2.75 x 14 stent (No Cost Implant) was prepped and advanced across the Mid RCA. The stent was deployed at 15 MISSAEL for 0:10 (min:sec). 9:58:41 Stent catheter was removed intact over wire. 10:00:09 Inflation Number: 1 A Biofreedom 3.0 x 14 stent (No Cost Implant) was prepped and advanced across the Prox RCA. The stent was deployed at 17 MISSAEL for 0:10 (min:sec). 10:00:29 Stent catheter was removed intact over wire. 10:00:30 Wire removed. 10:00:31 Guide catheter removed. 10:00:33 ACC Post-intervention MARIA C Flow is 3. 10:00:42 Cordis 6Fr Exoseal opened to sterile field. 10:01:10 Sheath removed intact; hemostasis achieved with Exoseal to the Left Femoral artery. 10:01:23 Procedure ended.(Physican Out) 10:01:37 Fluoroscopy time 03.90 minutes. 10:01:40 Flurop Dose total: 221 10:01:40 Fluoroscopy dose: 221 mGy 10:01:44 Contrast amount:Isovue 300 54ml. 10:01:45 Sharps counted by scrub and verified by R.N. 10:01:50 Insertion/operative site no bleeding no hematoma. 10:01:53 Post-op/insertion site Left Femoral artery dressed using a 4 x 4 and Tegaderm. 10:01:54 Post Procedure Pulses reassessed and unchanged 10:01:57 Post-procedure physical assessment completed. ASA score P 2 - A patient with mild systemic disease as per Trevon Cooney MD. 10:02:07 Post procedure rhythm: unchanged. 10:02:09 Estimated blood loss: 10 ml 10:02:12 Post procedure instruction explained to patient.Patient verbalizes understanding. 10:02:12 Patient needs reinforcement of post procedure teaching. 10:02:18 Procedure type changed to Cath procedure, PCI procedure, Coronary Stent Initial, Miscellaneous Procedures, Moderate Sedation up to 15 minutes 10:02:22 Procedure Complication : No complications 10:03:31 Procedure and supply charges have been captured, reviewed, submitted and are correct. 10:11:12 Vital chart was stopped 10:11:13 See physician's report for complete and final results. 10:11:15 Report given to PCU. 10:11:17 Patient transfered to PCU with Bed. 10:11:20 Procedure ended. 10:11:20 Full Disclosure recording stopped 10:11:23 End room use (Document Last) Intervention Summary Intervention Notes Time ActionType Lesion and Equipment Action# Pressure Duration Attributes Used 9:56:28 Inflate Mid RCA [place] Sci 1 13 00:10 balloon [place]opa 3.0 X 15 balloon 9:58:02 Place stent Mid RCA Biofreedom 2 15 00:10 2.75 x 14 stent (No Cost Implant) 10:00:09 Place stent Prox RCA Biofreedom 1 17 00:10 3.0 x 14 stent (No Cost Implant) Device Usage Item Name Manufacture Quantity Catalog Number Hospital Part Current Mini mal Lot# / Charge Number Stock Stock Serial# Code Tegaderm 4 3M 1 [id number] [id number] 5 x 4 Acist Acist 1 32658 653279 200571 433767 5 Manifold Medical Systems Inc Acist Acist 1 95150 411397 031948 062067 20 Syringe Medical Systems Inc Acist Hand Acist 1 07938 339912 607325 446968 5 Control Medical Systems Inc Bag Microtek 1 2002S 985944 87594 361504 5 AC Immune SA. Medline Cardinal 1 [id number] 230684 25448 693127 5 Cath PlaceFirst Terumo 6Fr Terumo 1 [id number] 625078 566246 413951 [address] St Pj 1 731366 992436 280497 982118 30 260cm J .035 wire Merit Merit 1 [id number] 578041 846389 768676 15 BasixCommsk Medical Inflation Kit Medtronic Medtronic 1 [id number] 056110 60274 762778 1 Launcher 6Fr HS II SH guide catheter Terumo 5Fr Terumo 1 [id number] 946422 182555 147202 40 Leitchfield Sheath Terumo Terumo 1 [id number] 453149 817521 651877 5 ANGLE 260cm glide wire River[place] Sci Riverton 1 [id number] 295270 263828 670176 1 [id number] Asuum 3.0 X 15 balloon Biofreedom Biosensors 1 [facility]2-7764 155888 184518 5 [id number] 2.75 x 14 [place] SA stent (No Cost Implant) Biofreedom Biosensors 1 [facility]2-3014 173103 249978 5 [id number] 3.0 x 14 [place] SA stent (No Cost Implant) Cordis 6Fr Cardinal 1 EX600 014385 074475 033818 10 [facility] Jorgensen Jorgensen 1 [id number] 043565 423430 761150 5 [facility] J Vascular 300cm 0.014 guide wire Signature Audit Flushing Stage Time Signature Unsigned Intra-Procedure 09/11/2016 Vito Felix 10:11:36 AM RT(R) Signatures Monitor : Vito Felix RT Signature : Date : Time : [id number] [place] [address]
[~2016-09-10 08:46] MED LIST: ACETYL L-CARNI500 MG PO; CARDURA8 MG PO; COZAAR100 MG PO; FLOMAX0.4 MG PO; GLIMEPIRIDE1 MG PO; GLIMEPIRIDE2 MG; HYDRALAZINE HCL25 MG PO; INSPRA25 MG PO; JANUVIA100 MG PO; LASIX40 MG PO; LOW DOSE ASPIRI81 M1 PO; MULTI-DAY VITAM1 TAB PO; NIFEDIPINE ER30 MG PO; NIFEDIPINE ER60 MG PO; NORVASC10 MG PO; PLAVIX75 MG; SODIUM BICARBO650 MG PO; TRIGLIDE160 MG PO; VYTORIN 10-40 M1 TAB PO; [UNRECOGNIZED DRUG - OTHER] PO
[2016-09-10] MEDS ORDERED: CATAPRES0.1 MG PO (10:44)
[2016-09-10] MEDS ORDERED: INSPRA25 MG PO (10:44)
[2016-09-10] MEDS ORDERED: LANTUS INSULIN10 ML SC (10:46)
[2016-09-10] MEDS ORDERED: NITROQUICK0.4 MG SL (10:47)
[2016-09-10] MEDS ORDERED: ZETIA10 MG PO (10:47)
[2016-09-10] MEDS ORDERED: FOLATE0.4 MG PO (10:48)
[2016-09-10] MEDS ORDERED: GARLIC PO (10:49)
[2016-09-10] MEDS ORDERED: SELENIUM PO (10:50)
[2016-09-10] MEDS ORDERED: MAG-OXIDE400 MG PO (10:50)
[2016-09-10] MEDS ORDERED: VITAMIN B650 MG PO (10:51)
[2016-09-10] MEDS ORDERED: VITAMIN D31000 UNIT PO (10:51)
[2016-09-10] MEDS ORDERED: VITAMIN C WIT1000 MG PO (10:51)
[2016-09-10] MEDS ORDERED: NIZORAL 2 % SH120 ML TOPICAL (10:52)
[2016-09-10] MEDS ORDERED: GALZIN50 MG PO (10:52)
[2016-09-10 11:00] LABS: BASOPHILS 1.1 % (0-2); HEMOGLOBIN 10.5 g/dL (13.5-17.5); IMMATURE GRANULOCYTES 0.4 % (0-5); LYMPHOCYTES 22.6 % (15-50); MCH 26.3 pg (26.0-34.0); MCHC 30.9 g/dL (31.0-37.0); MCV 85.2 fL (80.0-100.0); MEAN PLATELET VOLUME 9.5 fL (7.4-10.4); MONOCYTES 7.3 % (2-11); NEUTROPHILS 65.6 % (40-80); RBC 3.99 10x6/uL (4.20-6.10); RDW 14.6 % (11.5-14.5); WBC 5.6 10x3/uL (4.8-10.8)
[2016-09-10 11:01] VITALS: BP 177/63; BMI 28.4
[2016-09-10 11:01] LABS: PLATELET COUNT 332 10x3/uL (130-400)
[2016-09-10] MEDS ORDERED: MUCOMYST 20200 MG/M2 INH (11:05)
[2016-09-10] MEDS ORDERED: PLAVIX75 MG PO (11:06)
--- NOTE | 2016-09-10 11:09 | NUR ---
1109 PT REFUSES VALIUM.
[2016-09-10 11:25] LABS: CALC OSMOLALITY 294 mosm/kg (275-300); CALCIUM 9.4 mg/dL (8.5-10.1); CARBON DIOXIDE 24.5 mmol/L (21.0-32.0); CHLORIDE - SERUM 107 mmol/L (98-107); CKMB 2.1 U/L (0.0-3.6); CREATINE KINASE 161 UL (21-232); CREATININE - SERUM 2.8 mg/dL (0.6-1.3); GLUCOSE 144 mg/dL (74-106); POTASSIUM - SERUM 4.5 mmol/L (3.5-5.1); SODIUM 141 mmol/L (136-145); TROPONIN-I 0.027 ng/mL (0.000-0.060); UREA NITROGEN 44 mg/dL (7-18); eGFR NON AFRICAN AMERICAN 23 mL/min (90-120)
--- NOTE | 2016-09-10 14:15 | NUR ---
RECIEVED FROM [facility]. VS WNL. RIGHT GROIN STABLE WITHOUT BLEEDING OR HEMATOMA NOTED. TR BAND RITH WRIST. WILL CONT. PLAN OF CARE.
[2016-09-10 14:23] VITALS: BP 127/57; Ht 170.2 cm; Wt 82.7 kg
[2016-09-10 16:00] VITALS: BP 134/61
--- NOTE | 2016-09-10 17:10 | NUR ---
BEDREST UP. TR BAND DCD. RIGHT GROIN STABLE. WILL MONITOR.
[2016-09-10 19:41] VITALS: BP 180/56
--- NOTE | 2016-09-10 23:44 | NUR ---
PT RESTING WELL WITHOUT C/O OR DISTRESS NOTED. NO CHANGES NOTED IN ASSESSMENT. CALL LIGHT WITHIN REACH. WILL CONT TO MONITOR.
[2016-09-11 00:59] VITALS: BP 180/56
--- NOTE | 2016-09-11 07:13 | NUR ---
ASSESSMENT COMPLETED. DENIES ANY NEEDS.TELEMERTY SHOWS SR AT 62. O2 AT 2 LM PER NC. LEFT GROIN SOFT WITH DRSG DRY AND INTACT. NPO FOR CATH. WILL MONITOR
[2016-09-11 08:18] LABS: CALC OSMOLALITY 291 mosm/kg (275-300); CALCIUM 8.8 mg/dL (8.5-10.1); CARBON DIOXIDE 24.3 mmol/L (21.0-32.0); CHLORIDE - SERUM 109 mmol/L (98-107); CREATININE - SERUM 2.7 mg/dL (0.6-1.3); GLUCOSE 108 mg/dL (74-106); POTASSIUM - SERUM 4.5 mmol/L (3.5-5.1); SODIUM 141 mmol/L (136-145); UREA NITROGEN 41 mg/dL (7-18); eGFR NON AFRICAN AMERICAN 24 mL/min (90-120)
[2016-09-11 08:36] VITALS: BP 180/90
--- NOTE | 2016-09-11 09:24 | NUR ---
TO COMMUNITY LIAISON PER BED
--- NOTE | 2016-09-11 10:37 | NUR ---
BACK FROM AUDIO TAPE LIBRARIAN. LEFT GROIN SOFT WITH DRSG DRY AND INTACT. V/S STABLE. PPP. DENIES ANY NEEDS. SR UP WITH CALL LIGHT IN REACH . WILL MONITOR
[2016-09-11 11:46] VITALS: BP 92/55
--- NOTE | 2016-09-11 12:03 | NUR ---
V/S 136/80 DOWN FROM 200/98. DENIES ANY NEEDS. LEFT GROIN SOFT WITH DRSG DRY AND INTACT. WILL MONITOR
--- NOTE | 2016-09-11 14:13 | NUR ---
PLAVIX 75 MG # 30 WITH 5 REFILLS CALLED TO [facility] IN [facility], SPOKE WITH RENITA (PHARMACHIST).
--- NOTE | 2016-09-11 14:18 | NUR ---
EKG DONE AND LAB DRAWN. LEFT GROIN SOFT WITH DRSG DRY AND INTACT. PPP. PT TO BE DISCHARGED
--- NOTE | 2016-09-11 14:31 | NUR ---
PT DISCHARGED AND TAKEN TO PRIVATE CAR PER WHEELCHAIR.
--- NOTE | 2016-09-13 10:11 | DS ---
PATIENT:OKSANA JENNINGS :36 MEDICAL RECORD: [id number] DISCHARGE SUMMARY ADMISSION DATE: 09/11/16 DISCHARGE DATE: 09/11/16 DISCHARGE DIAGNOSES: 1. Angina. 2. Coronary artery disease. 3. Percutaneous transluminal coronary angioplasty stent right coronary artery and left circumflex this admission. HOSPITAL COURSE: This is a gentleman who presents with anginal symptomatology, found to have 2-vessel disease, underwent successful PTCA stent of above territories and had an uneventful postop course. He was discharged home with the addition of aspirin and Plavix to his medical regimen. We will follow up with [facility] in 1 month. TRANSINT:[id number] Voice Confirmation ID: [id number] DOCUMENT ID: [id number] DEBBIE DRAKE MD at 1011 CC: [id number] DICTATION DATE: 09/11/16 1008 RAIL DIRECTOR: 09/11/16 2332 DIS IN 09/11/16 [address] [place] [address]
--- NOTE | 2016-09-13 10:11 | OP ---
PATIENT NAME: OKSANA JENNINGS MEDICAL RECORD: [id number] :36 LOCATION:D.M2 D.2114 ADMISSION DATE:09/11/16 SURGEON: DEBBIE DRAKE MD DATE OF OPERATION: 09/10/2016 PROCEDURES: 1. PTCA stent left circumflex. 2. Left heart catheterization. 3. Selective coronary angiography. 4. Left ventriculogram. INDICATION: Angina and coronary artery disease. PROCEDURE: After informed consent was obtained and after detailed explanation of risks, benefits as well as alternative therapies, the patient elected to proceed with angiogram and angioplasty. The right femoral area was prepped and draped in the normal sterile fashion. The right femoral artery was cannulated via modified Seldinger technique with placement of 6-Croatian sheath. All catheters exchanged through this sheath. FINDINGS: The left ventriculogram was not performed secondary to dye conservation. SELECTIVE CORONARY ANGIOGRAPHY: 1. Left main showed no significant angiographic disease. 2. Left anterior descending has moderate irregularities, but no flow-limiting stenosis. 3. The left circumflex has a previously placed stent. There is 90% in-stent restenosis in the proximal aspect of this. 4. The right coronary has an 80-90% stenosis proximally followed by moderate irregularities throughout. PTCA STENT OF THE LEFT CIRCUMFLEX: The stent used is a 2.5 x 18 mm BioFreedom. Result was 0% residual stenosis. OVERALL IMPRESSION: Successful percutaneous transluminal coronary angioplasty stent of the left circumflex going from 90% initial stenosis to 0% residual. PLAN: PTCA stent of the RCA in the a.m. TRANSINT:[id number] Voice Confirmation ID: [id number] DOCUMENT ID: [id number] DEBBIE DRAKE MD at 1011 CC: DENAE GEORGES MD [id number] DICTATION DATE: 09/10/16 1350 MEDIA TRAFFIC MANAGER: 09/10/16 2330 DIS IN 09/11/16 [facility] [address] [place] [address]
--- NOTE | 2016-09-13 10:11 | OP ---
PATIENT NAME: OKSANA JENNINGS MEDICAL RECORD: [id number] :36 LOCATION:D.M2 D.2114 ADMISSION DATE:09/11/16 SURGEON: DEBBIE DRAKE MD DATE OF OPERATION: 09/11/2016 PROCEDURES: 1. PTCA stent RCA. 2. Selective coronary angiography. INDICATION: Angina and coronary artery disease. PROCEDURE PERFORMED: After informed consent was obtained and after detailed explanation of the risks, benefits as well as alternative therapies, the patient elected to proceed with angiogram and angioplasty. The left femoral area was prepped and draped in normal sterile fashion. Left femoral artery was cannulated via modified Seldinger technique with placement of 6-Vietnamese sheath. All catheters exchanged through this sheath. FINDINGS: The right coronary has 80% stenosis proximally, this is a 3-0 vessel with a 12 mm lesion MARIA C 3 flow, has a 80% stenosis in the mid vessel; has a 2.75 mm vessel, 12 mm lesion with MARIA C 3 flow. The mid vessel was addressed with a 2.75 x 14 mm BioFreedom stent proximal vessel with a 3.0 x 14 mm BioFreedom stent. Result was 0% residual throughout MARIA C 3 flow. IMPRESSION: Successful percutaneous transluminal coronary angioplasty stent of the RCA going from 80% initial stenosis to 0% residual. TRANSINT:[id number] Voice Confirmation ID: [id number] DOCUMENT ID: [id number] DEBBIE DRAKE MD at 1011 CC: [id number] DICTATION DATE: 09/11/16 1007 ENGINEERING VICE PRESIDENT: 09/11/161954 DIS IN 09/11/16 [address] [place] [address]
== END 2016-09-11 14:34 ==
LOC: D.CATH 08:46 → D.M2 14:09 → OBSVTIME 09-11 10:06 → D.CATH 09-11 10:06 → D.M2 09-11 10:06
PROVIDERS: ADMIT Internal Medicine Interventional Cardiology
DX: I25.119 Atherosclerotic heart disease of native coronary artery with unspecified angina pectoris (principal); T82.855A Stenosis of coronary artery stent, initial encounter; Y84.0 Cardiac catheterization as the cause of abnormal reaction of the patient, or of later complication, without mention of misadventure at the time of the procedure; Z00.6 Encounter for examination for normal comparison and control in clinical research program
CPT/HCPCS: 93458; C9600 ×2

== ENCOUNTER 2017-07-06 09:08 | Outpatient (CLI) | payer MEDICARE, OTHER ==
[~2017-07-06] VITALS: Ht 170.2 cm; Wt 84.5 kg
--- NOTE | ~2017-07-06 | OP ---
PATIENT NAME: OKSANA JENNINGS MEDICAL RECORD: [id number] :36 LOCATION:D.CAT ADMISSION DATE: SURGEON: DEBBIE DRAKE MD DATE OF OPERATION: 07/06/2017 PROCEDURES: 1. HAND BOOKED FOLDER AND STITCHER stent right and left iliac. 2. Abdominal aortography. 3. Aortofemoral runoff. INDICATION: Claudication and peripheral vascular disease. PROCEDURE IN DETAIL: After informed consent was obtained and after a detailed description of risks, benefits as well as alternative therapies, the patient elected to proceed with angiogram and angioplasty. Both iliacs were prepped and draped in normal sterile fashion. Both iliacs was cannulated via modified Seldinger technique with placement of 6-Occitan sheath. All catheters exchanged through this sheath. FINDINGS: Abdominal aortography was performed. The catheter was pulled down for aortofemoral runoff. Abdominal aortography reveals no significant known aortic disease, no renal artery stenosis. No dissection. RIGHT LEG: A. Iliac: The common iliac is widely patent. The external iliac has 80% stenosis. B. Femoral system: The common and deep femoral are widely patent. Superficial femoral has a long area of total occlusion throughout the mid vessel. The distal superficial femoral reconstitutes via collaterals off the deep system. This is patent. C. Popliteal and infrapopliteal vessels are patent, although diffusely diseased. LEFT LEG: A. Iliac: The common iliac is widely patent. External iliac has 80% stenosis. B. Femoral system. The common, superficial, and deep femoral have moderate irregularities, but no flow-limiting stenosis. C. Popliteal and infrapopliteal vessels are patent giving 3-vessel runoff to the foot. HAND BOOKED FOLDER AND STITCHER STENT OF THE ILIAC: The right iliac was addressed with 8 x 18 Cordis Jaci, the left iliac with an 8 x 39 Cordis Jaci. Result was 0% residual. Anglican of brisk distal flow. IMPRESSION: Successful percutaneous transluminal angioplasty stent of both iliacs going from 80% initial stenosis to 0% residual stenosis. TRANSINT:[id number] Voice Confirmation ID: [id number] DOCUMENT ID: [id number] OPERATIVE REPORT [id number] MICHAELAOKSANA DELGADO DEBBIE GREY MD at 1057 CC: [id number] DICTATION DATE: 07/06/17 1202 MUSIC PROFESSOR: 07/06/17 1239 DEP CLI 07/06/17 [address] [place] [address]
--- NOTE | ~2017-07-06 | HEMODYNAMI ---
PATIENT:OKSANA JENNINGS MEDICAL RECORD: [id number] : 36 LOCATION:[facility] ADMISSION DATE: 07/06/17 Generatedon:07/06/201712:04 Patient name: OKSANA JENNINGS Patient #: [id number] SSN: DO B: 1940 Date of study: 07/06/2017 Page: Of Hemodynamic Procedure Report Patient Data Patient Demographics Procedure consent was obtained First Name: OKSANA Gender: Male Last Name: MICHAELA : 1940 [facility] Initial: CAYLA Age: 77 year(s) Patient #: [id number] Race: Additional ID: [id number] Contact details Address: [address] [place] [address] [facility] State: [place] City: [place] Zip code: [address] Past Medical History History of disease Date Diagnosis Comments CAD Hypertension Diabetes Allergies Allergen Reaction Date Comments Reported Other allergy 08/12/2014 Benadryl, Bactrim Other allergy 09/10/2016 Bactrim, Benadryl Other allergy 07/06/2017 Atenolol, Rapaflo, Taztia XL, Hydralazine Admission Admission Data Admission Date: 07/06/2017 Admission Time: 9:08 Procedure Procedure Types Cath Procedure Peripheral Cath Diagnostic Procedure Cath Peripheral Gbbeq-Xephafj-Bfb-Off Peripheral vascular Intervention Stent Stent Iliac w/plasty Initial Procedure Description Procedure Date Procedure Date: 07/06/2017 Procedure Start Time: 11:26 Procedure End Time: 12:04 Procedure Staff Name Function Trevon Cooney MD Performing Physician Tiffani Nelson RT Monitor Radha Mahajan RT Scrub Todd Lockwood RN Nurse Procedure Data Cath Procedure Fluoroscopy Diagnostic fluoroscopy Total fluoroscopy Time: 5.2 time: 5.2 min min Diagnostic fluoroscopy Total fluoroscopy dose: 307 dose: 307 mGy mGy Contrast Material Contrast Material Type Amount (ml) Isovue 300 132 Entry Location Entry Primary Successful Side Size Upsize 1 Upsize Entry Closure Becker ccessful Closure Location (Fr) (Fr) 2 (Fr) Remarks Device Remarks Femoral Right 5 Fr 6 Fr 6 Fr Exoseal artery Mid-Length Short Femoral Left 6 Fr 6 Fr 6 Fr Exoseal artery Short Mid-Length Short Estimated blood loss: 10 ml Diagnostic catheters Device Type Used For End Catheter Placement DIAGNOSTIC UF 5Fr Abdominal catheter ([id number]) aortogram with runoff Procedure Complications No complications Procedure Medications Medication Administration Route Dosage 0.9% NaCl I.V. 100 ml/hr Oxygen etCO2 Nasal cannula 2 l/min Heparin Flush Bag added to field 2 bags (1000units/500ml NS) Lidocaine 2% added to field 20 Versed I.V. 2 mg Fentanyl I.V. 100 mcg Versed I.V. 1 mg Heparin Bolus I.V. 4000 units Versed I.V. 1 mg Integrilin (Bolus I.V. 7.9 ml 2mg/ml) Integrilin (Bolus wasted 2.1 ml 2mg/ml) Plavix P.O. 600 mg Hemodynamics Rest Heart Rate: 69 (bpm) Snapshots Pre Cath Intra NCS Post Cath Vital Signs Time Heart Resp SPO2 etCO2 NIBP (mmHg) Rhythm Pain Sedation Rate (ipm) (%) (mmHg) Status Level (bpm) 11:09:17 73 19 98 35.4 162/58(119) NSR 0 (11) 10(A) , No pain 11:14:04 66 20 97 37.7 149/60(114) NSR 0 (11) 10(A) , No pain 11:18:49 73 15 97 22.6 147/57(106) NSR 0 (11) 10(A) , No pain 11:23:33 68 13 95 37.7 139/56(108) NSR 0 (11) 10(A) , No pain 11:28:18 64 14 97 0 136/54(99) NSR 0 (11) 9(A) , No pain 11:33:03 66 13 98 33.9 143/61(122) NSR 0 (11) 10(A) , No pain 11:37:49 72 13 98 35.4 150/60(118) NSR 0 (11) 10(A) , No pain 11:42:36 71 15 97 28.6 146/55(106) NSR 0 (11) 9(A) , No pain 11:47:19 65 18 98 24.9 140/56(109) NSR 0 (11) 10(A) , No pain 11:52:06 65 19 98 22.6 143/51(102) NSR 0 (11) 10(A) , No pain 11:56:50 76 24 98 35.4 159/66(123) NSR 0 (11) 10(A) , No pain 12:01:37 74 13 98 38.4 158/65(130) NSR 0 (11) 10(A) , No pain Medications Time Medication Route Dose Verified Delivered Reason Notes Effectiveness by by 11:11:08 0.9% NaCl I.V. 100 Todd Todd Per physician ml/hr Mandie Lockwood RN RN 11:11:19 Oxygen etCO2 2 Todd Todd Per physician Nasal l/min Mandie Lockwood cannula RN RN 11:11:33 Heparin Flush added 2 Todd Todd used for Bag to bags Mandie Lockwood procedure (1000units/500ml RN RN NS) 11:11:45 Lidocaine 2% added 20ml Todd Todd for local to vial Mandie Lockwood anesthetic RN RN 11:17:54 Versed I.V. 2 mg Todd Todd for sedation Mandie Lockwood RN RN 11:18:07 Fentanyl I.V. 100 Todd Todd for sedation mcg Mandie Lockwood RN RN 11:23:46 Versed I.V. 1 mg Todd Todd for sedation Mandie Lockwood RN RN 11:35:12 Heparin Bolus I.V. 4000 Todd Todd for units Mandie Lockwood anticoagulation RN RN 11:42:51 Versed I.V. 1 mg Todd Todd for sedation Mandie Lockwood RN RN 11:59:59 Integrilin I.V. 7.9 Todd Todd for (Bolus 2mg/ml) ml Mandie Lockwood antiplatelet RN RN therapy 12:00:13 Integrilin wasted 2.1 Todd Todd to sharp's (Bolus 2mg/ml) ml Mandei Lockwood RN RN 12:00:28 Plavix P.O. 600 Todd Todd for mg Mandie Lockwood antiplatelet RN RN therapy Procedure Log Time Note 10:51:54 Radha HUERTA(R) sent for patient. Start room use. 10:51:55 Time tracking: Regular hours 10:52:00 Plan of Care:Hemodynamics will remain stable., Cardiac rhythm will remain stable., Comfort level will be maintained., Respiratory function will remain adequate., Patient/ family verbilizes understanding of procedure., Procedure tolerated without complication., Recovers from procedure without complications.. 10:56:16 Patient received from Pre/Post Procedure Room to CCL 1 Alert and oriented. Tansferred to table in Supine position. 10:56:18 Warm blankets applied, and catherine hugger turned on for patient comfort. 10:56:18 Correct patient and procedure confirmed by team. 10:56:20 Signed procedure consent form obtained from patient. 10:56:22 ECG and BP/O2 sat monitors applied to patient. 10:56:22 Full Disclosure recording started 11:08:19 Vital chart was started 11:08:22 Rhythm: sinus rhythm 11:08:30 H&P Date Dictated: 06/27/2017 Within 30 days and on chart., H&P Addendum completed by physician on day of procedure. (MUST COMPLETE FOR ALL OUTPATIENTS). 11:08:31 Pre-procedure instructions explained to patient. 11:08:32 Pre-op teaching completed and patient verbalized understanding. 11:08:33 Family in waiting room. 11:08:34 Patient NPO since Midnight. 11:09:54 Patient allergic to Other allergyAtenolol, Rapaflo, Taztia XL, Hydralazine 11:10:07 Is the patient allergic to Iodine/contrast media? No. 11:10:15 Is patient on blood thinner?No 11:10:17 Patient diabetic? No. 11:10:20 Previous problem with sedation/anesthesia? No ? 11:10:21 Snore? Yes 11:10:22 Sleep apnea? No 11:10:24 Deviated septum? No 11:10:25 Opens mouth fully? Yes 11:10:26 Sticks out tongue? Yes 11:10:28 Airway obstruction? No ? 11:10:30 Dentures? No ? 11:10:35 Pre procedure: right dorsailis pedis pulse 2+ Normal; easily identifiable; not easily obliterated 11:10:39 Pre procedure: left dorsailis pedis pulse 2+ Normal; easily identifiable; not easily obliterated 11:10:42 Patient pain scale 0/10 ?. 11:11:03 IV patent on arrival in left wrist with 0.9% NaCl at KVO. 11:11:06 Lab results completed and on chart. 11:11:08 0.9% NaCl 100 ml/hr I.V. was administered by Todd Lockwood RN; Per physician; 11:11:19 Oxygen 2 l/min etCO2 Nasal cannula was administered by Todd Lockwood RN; Per physician; 11:11:20 Bilateral groins area was prepped with chlora-prep and draped in sterile fashion 11:11:21 Alarms reviewed by R. N. 11:11:21 Sharps counted by scrub and verified by R.N. 11:11:31 Use device set CATH PACK 11:11:32 ACIST Syringe (04344) opened to sterile field. 11:11:32 ACIST Hand Control (91150) opened to sterile field. 11:11:33 Heparin Flush Bag (1000units/500ml NS) 2 bags added to field was administered by Todd Lockwood RN; used for procedure; 11:11:33 ACIST Manifold (06150) opened to sterile field. 11:11:33 Medline Cath Pack ([id number]) opened to sterile field. 11:11:34 Bag Decanter (2002S) opened to sterile field. 11:11:34 DIAGNOSTIC WIRE .035 260cm J wire (417184) opened to sterile field. 11:11:43 SHEATH Prelude 5Fr 0.035 (BSN-4M-85-035) opened to sterile field. 11:11:45 Lidocaine 2% 20ml vial added to field was administered by Todd Lockwood RN; for local anesthetic; 11:11:51 PERCUTANEOUS ENTRY 19GA needle opened to sterile field. 11:14:31 Baseline sample Acquired. 11:17:03 Final Timeout: patient, procedure, and site verified with staff and physician. All members of the team are in agreement. 11:17:06 Right groin site verified by team. 11:17:09 Physical assessment completed. ASA score P 2 - A patient with mild systemic disease as per Trevon Cooney MD. 11:17:12 Sedation plan: IV Moderate Sedation Medication:Versed, Fentanyl 11:17:54 Versed 2 mg I.V. was administered by Todd Lockwood RN; for sedation; 11:18:07 Fentanyl 100 mcg I.V. was administered by Todd Lorigan RN; for sedation; 11:23:46 Versed 1 mg I.V. was administered by Todd Lockwood RN; for sedation; 11:26:49 Procedure started. 11:26:52 Local anesthetic to right femoral artery with Lidocaine 2% by Trevon Cooney MD.INITIAL ACCESS ONLY 11:28:05 A 5 Fr sheath was inserted into the Right Femoral artery 11:29:01 A DIAGNOSTIC UF 5Fr catheter ([id number]) was advanced over the wire and used for Abdominal aortogram with runoff. 11:31:48 Catheter removed. 11:31:50 SHEATH 6FR Brite Tip 35cm ([id number]) opened to sterile field. 11:31:51 INFLATOR Merit BasixCompak (AA4314) opened to sterile field. 11:32:08 SHEATH 6Fr Prelude ([id number]) opened to sterile field. 11:32:08 SHEATH 6Fr Prelude ([id number]) opened to sterile field. 11:33:00 Sheath upsized to a 6 Fr Mid-Length. 11:35:12 Heparin Bolus 4000 units I.V. was administered by Todd Lockwood RN; for anticoagulation; 11:35:48 Place stent Inflation Number: 1 A STONEY 8 x 18 x 135 stent ([id number]) was prepped and advanced across the Mid External Iliac, Right. The stent was deployed at 11 MISSAEL for 0:10 (min:sec). 11:36:10 Stent catheter was removed intact over wire. 11:36:10 Wire removed. 11:36:11 Guide catheter removed. 11:36:27 Sheath upsized to a 6 Fr Short. 11:37:30 Local anesthetic to left femerol artery with Lidocaine 2% by Trevon Cooney MD.ADDITIONAL ACCESS 11:39:43 GLIDE WIRE Super Stiff Angled 260cm (BJ4575) opened to sterile field. 11:39:55 SS glide wire advanced. 11:40:05 TORQUE DEVICE PLASTIC .038 ( TD01) opened to sterile field. 11:41:18 A 6 Fr Short sheath was inserted into the Left Femoral artery 11:41:42 Sheath upsized to a 6 Fr Mid-Length. 11:42:51 Versed 1 mg I.V. was administered by Todd Lockwood RN; for sedation; 11:54:21 Place stent Inflation Number: 1 A STONEY 8 x 39 x 135 stent ([id number]) was prepped and advanced across the Mid External Iliac, Left. The stent was deployed at 11 MISSAEL for 0:15 (min:sec). 11:54:35 Stent catheter was removed intact over wire. 11:55:10 Sheath upsized to a 6 Fr Short. 11:55:54 Sheath removed intact; hemostasis achieved with Exoseal to the Right Femoral artery. 11:55:59 Sheath removed intact; hemostasis achieved with Exoseal to the Left Femoral artery. 11:56:02 Procedure ended.(Physican Out) 11:56:11 Fluoroscopy time 05.20 minutes. 11:56:14 Fluoroscopy dose: 307 mGy 11:56:14 Flurop Dose total: 307 11:56:17 Contrast amount:Isovue 300 132ml. 11:56:19 Sharpstacy counted by scrub and verified by R.N. 11:56:19 Insertion/operative site no bleeding no hematoma. 11:56:23 Post-op/insertion site Right Femoral artery dressed using a 4 x 4 and Tegaderm. 11:56:25 Post right femoral artery:stable, clean and dry 11:56:26 Post Procedure Pulses reassessed and unchanged 11:56:29 Post-procedure physical assessment completed. ASA score P 2 - A patient with mild systemic disease as per Trevon Cooney MD. 11:56:31 Post procedure rhythm: unchanged. 11:56:33 Estimated blood loss: 10 ml 11:56:34 Post procedure instruction explained to patient.Patient verbalizes understanding. 11:56:34 Patient needs reinforcement of post procedure teaching. 11:56:40 See physician's report for complete and final results. 11:59:59 Integrilin (Bolus 2mg/ml) 7.9 ml I.V. was administered by Todd Lockwood RN; for antiplatelet therapy; 12:00:13 Integrilin (Bolus 2mg/ml) 2.1 ml wasted was administered by Todd Lockwood RN; to segundo's; 12:00:25 Procedure type changed to Cath procedure, Peripheral Cath Diagnostic Procedure, Cath Peripheral, Kupcx-Lmnwdki-Hdm-Off, Peripheral vascular Intervention, Stent, Stent Iliac w/plasty Initial 12:00:28 Plavix 600 mg P.O. was administered by Todd Lorigan RN; for antiplatelet therapy; 12:00:29 Procedure Complication : No complications 12:00:45 EXOSEAL 6Fr (EX600) opened to sterile field. 12:00:45 EXOSEAL 6Fr (EX600) opened to sterile field. 12:00:46 Tegaderm 4 x 4 (1626W) opened to sterile field. 12:00:46 Tegaderm 4 x 4 (1626W) opened to sterile field. 12:03:51 Procedure and supply charges have been captured, reviewed, submitted and are correct. 12:03:51 Vital chart was stopped 12:03:53 Report given to Pre/Post Procedure Room. 12:03:56 Patient transfered to Pre/Post Procedure Room with Stretcher. 12:04:03 Procedure ended. 12:04:03 Full Disclosure recording stopped 12:04:06 End room use (Document Last) Intervention Summary Intervention Notes Time ActionType Lesion and Equipment Action# Pressure Duration Attributes Used 11:35:48 Place stent Mid STONEY 8 x 1 11 00:10 External 18 x 135 Iliac, stent Right ([id number]) 11:54:21 Place stent Mid STONEY 8 x 1 11 00:15 External 39 x 135 Iliac, Left stent ([id number]) Device Usage Item Name Manufacture Quantity Catalog Number Hospital Part Current M inimal Lot# / Charge Number Stock Stock Serial# Code ACIST Syringe Acist 1 69755 763962 214365 881525 2 0 (34205) [employer] Inc ACIST Hand Acist 1 92783 110650 737102 692580 5 Control (74077) [employer] Inc ACIST Manifold Acist 1 71203 845598 866353 726030 5 (51946) [employer] Systems Inc Medline Cath Cardinal 1 [id number] 029728 03831 403490 5 Pack Health ([id number]) Bag Decanter Microtek 1 2001S 810317 33901 112069 5 (2001S) Medical Inc. DIAGNOSTIC WIRE St P[address] 1 818114 682025 251494 638432 3 0 .035 260cm J wire (320714) SHEATH Prelude Merit 1 XGF-4S-04-035 952970 594463 278392 5 5Fr 0.035 Medical (XQW-3M-84-035) PERCUTANEOUS Cook Medical 1 [id number] 054480 179991 5 ENTRY 19GA needle DIAGNOSTIC UF Cardinal 1 [id number] 275338 689133 310424 1 0 5Fr catheter Health (643325S4) SHEATH 6FR Cardinal 1 [id number] 781657 985976 382827 1 Brite Tip 35cm Health (957919E) INFLATOR Merit Merit 1 CR2400 222611 249889 642172 1 5 BasixCompak Medical (YE1732) SHEATH 6Fr Merit 2 [id number] 750927 912937 744181 5 Prelude Medical ([id number]) GLIDE WIRE Terumo 1 VZ4672 160387 885500 613117 5 Super Stiff Angled 260cm (YT0438) TORQUE DEVICE [place] 1 TD01 722853 917848 800368 5 PLASTIC .038 ( Scientific TD01) STONEY 8 x 39 Cardinal 1 [id number] 345944 047359 208917 5 [id number] x 135 stent Health ([id number]) EXOSEAL 6Fr Cardinal 2 EX600 642578 849164 368523 1 0 (EX600) Health Tegaderm 4 x 4 3M 2 1626W 815881 133758 940665 5 (1626W) STONEY 8 x 18 Cardinal 1 [id number] 524596 311385 5 [id number] x 135 stent Health ([id number]) Signature Audit [place] Stage Time Signature Unsigned Intra-Procedure 07/06/2017 Tiffani 12:04:21 PM Counts RT(R) Signatures Monitor : Tiffani Signature : Counts RT Date : Time : [facility] [address] [place] [address]
[~2017-07-06 09:08] MED LIST changes: +CATAPRES0.1 MG PO; +FOLATE0.4 MG PO; +GALZIN50 MG PO; +GARLIC PO; +LANTUS INSULIN10 ML SC; +MAG-OXIDE400 MG PO; +MUCOMYST 20200 MG/M2 INH; +NITROQUICK0.4 MG SL; +NIZORAL 2 % SH120 ML TOPICAL; +PLAVIX75 MG PO; +SELENIUM PO; +VITAMIN B650 MG PO; +VITAMIN C WIT1000 MG PO; +VITAMIN D31000 UNIT PO; +ZETIA10 MG PO
[2017-07-06] MEDS ORDERED: METHYLDOPA500 MG PO (09:28)
[2017-07-06] MEDS ORDERED: FLOMAX0.4 MG PO (09:29)
[2017-07-06] MEDS ORDERED: DIOVAN320 MG PO (09:30)
[2017-07-06] MEDS ORDERED: MEGARED PO (09:31)
[2017-07-06 09:46] VITALS: BP 161/57; Ht 170.2 cm; Wt 84.5 kg
[2017-07-06 09:52] LABS: BASOPHILS 0.5 % (0-2); EOSINOPHILS 3.7 % (0-7); HEMOGLOBIN 12.3 g/dL (13.5-17.5); IMMATURE GRANULOCYTES 0.4 % (0-5); LYMPHOCYTES 17.2 % (15-50); MCHC 32.4 g/dL (31.0-37.0); MCV 86.6 fL (80.0-100.0); MONOCYTES 8.3 % (2-11); NEUTROPHILS 69.9 % (40-80); RBC 4.39 10x6/uL (4.20-6.10); WBC 8.3 10x3/uL (4.8-10.8)
[2017-07-06 10:11] LABS: ANION GAP 18.6 mmol/L (8-16); CALCIUM 9.5 mg/dL (8.5-10.1); CARBON DIOXIDE 24.5 mmol/L (21.0-32.0); CREATININE - SERUM 3.9 mg/dL (0.6-1.3); POTASSIUM - SERUM 4.1 mmol/L (3.5-5.1)
[2017-07-06 10:13] LABS: PLATELET COUNT 260 10x3/uL (130-400)
== END 2017-07-06 16:00 | disposition home or self-care (01) ==
LOC: D.CATH 09:08
PROVIDERS: Internal Medicine Interventional Cardiology
DX: I70.213 Atherosclerosis of native arteries of extremities with intermittent claudication, bilateral legs (principal); Z01.812 Encounter for preprocedural laboratory examination

== ENCOUNTER → 2017-09-19 12:03 | Outpatient (CLI) | payer MEDICARE, OTHER ==
[2017-07-06 09:46] VITALS: BMI 29.2
[~2017-09-19 12:03] MED LIST changes: +DIOVAN320 MG PO; +MEGARED PO; +METHYLDOPA500 MG PO
== END | disposition home or self-care (01) ==
LOC: D.US 12:03
DX: E11.22 Type 2 diabetes mellitus with diabetic chronic kidney disease (principal); I12.9 Hypertensive chronic kidney disease with stage 1 through stage 4 chronic kidney disease, or unspecified chronic kidney disease; N18.3 Chronic kidney disease, stage 3 (moderate); R80.9 Proteinuria, unspecified; Z01.818 Encounter for other preprocedural examination

== ENCOUNTER 2017-10-07 07:45 | Day surgery (SDC) | payer MEDICARE, OTHER ==
[2017-10-06 15:23] LABS: BASOPHILS 0.4 % (0-2); HEMOGLOBIN 10.5 g/dL (13.5-17.5); IMMATURE GRANULOCYTES 0.4 % (0-5); LYMPHOCYTES 24.1 % (15-50); MCH 27.6 pg (26.0-34.0); MCHC 31.8 g/dL (31.0-37.0); MCV 86.6 fL (80.0-100.0); MEAN PLATELET VOLUME 8.8 fL (7.4-10.4); MONOCYTES 8.7 % (2-11); NEUTROPHILS 63.4 % (40-80); PLATELET COUNT 310 10x3/uL (130-400); RBC 3.81 10x6/uL (4.20-6.10); RDW 13.7 % (11.5-14.5); WBC 7.9 10x3/uL (4.8-10.8)
[2017-10-06 15:28] LABS: ANION GAP 13.7 mmol/L (8-16); CALCIUM 9.1 mg/dL (8.5-10.1); CARBON DIOXIDE 25.8 mmol/L (21.0-32.0); CREATININE - SERUM 4.1 mg/dL (0.6-1.3); POTASSIUM - SERUM 4.5 mmol/L (3.5-5.1)
[2017-10-06 15:32] LABS: APTT 38.9 SECONDS (22.8-39.4); INR 1.08 (0.85-1.17); PROTIME 13.6 SECONDS (11.6-15.0)
[~2017-10-07] VITALS: Ht 170.2 cm; Wt 84.8 kg
--- NOTE | ~2017-10-07 | OP ---
PATIENT NAME: OKSANA ARREGUIN MEDICAL RECORD: [id number] :38 LOCATION:D.OPS ADMISSION DATE: SURGEON: ALEXANDREA SANTANA MD DATE OF OPERATION: 10/07/2017 REFERRING PHYSICIAN: Keyon Faria MD DIAGNOSIS: Chronic kidney disease, stage V. OPERATION PERFORMED: Creation of a left brachiocephalic Shavonne type AV fistula. SURGEON: Alexandrea Santana MD ANESTHESIA: Regional nerve block plus general with LMA per INDUSTRIAL WELDER. PREOPERATIVE NOTE: Mr. Arreguin is a 77-year-old white male patient who is expected to likely begin dialysis fairly soon. Dr. Faria referred him to me for long-term access. He is brought to the operating room with plans to go ahead with a left arm brachiocephalic AV fistula as his preoperative vein mapping indicates that this should be successful. Under anesthesia, the patient was placed in supine position, prepped and draped in sterile manner. I used a proximal venous tourniquet, a [place] drain and applied nitroglycerin ointment to the intact skin of the arm and forearm. I examined him with Duplex ultrasound and confirmed there was a satisfactory cephalic vein, which appeared to be patent and of good caliber all the way to the deltopectoral groove and the brachial artery appeared very satisfactory. I made a transverse incision just below the level of the antecubital space and exposed and fully mobilized these vessels. Tributaries were divided between ligatures and the vessels controlled with Silastic loops or atraumatic vascular clamps. The vein was ligated and transected and bevelled and flushed with heparinized saline and hydrostatically dilated. The artery was occluded and opened and flushed proximally and distally with heparinized saline. An end-to-side igvk-oo-xhqrlm anastomosis was then completed with running 7-0 Prolene and when complete, the occluding loops and clamps were released, excellent flow developed immediately within the fistula and the suture line was hemostatic. The wound was irrigated gently with saline and closed with interrupted inverted 3-0 Vicryl and running intracuticular Monocryl. The wound was dressed with glue and Maxorb Ag, Tegaderm and Cavilon skin prep. He was awakened and taken to the recovery room in stable condition. Doppler examination revealed preservation of flow in the radial and ulnar arteries and good flow in the fistula. Blood loss was about 5 cc, none replaced. All sponges, instruments and needles were accounted for. No drain was used and no surgical specimen was submitted for histopathology. TRANSINT:[id number] Voice Confirmation ID: [id number] DOCUMENT ID: [id number] OPERATIVE REPORT [id number] OKSANA ARREGUIN JAMES MD at 0847 CC: KEYON FARIA [id number] DICTATION DATE: 10/07/17 1554 OUTSIDE INDUSTRIAL SALES REPRESENTATIVE: 10/07/17 1625 [facility] 10/07/17 [address] [id number] [place] [address]
[2017-10-07 08:43] VITALS: Ht 170.2 cm; Wt 84.8 kg
== END 2017-10-07 15:15 | disposition home or self-care (01) ==
LOC: D.OPS 07:45
PROVIDERS: Anesthesiology
DX: N18.5 Chronic kidney disease, stage 5 (principal); Z01.812 Encounter for preprocedural laboratory examination

== ENCOUNTER 2017-11-25 08:07 | Outpatient (CLI) | payer MEDICARE, OTHER ==
[~2017-11-25] VITALS: Ht 170.2 cm; Wt 84.5 kg
--- NOTE | ~2017-11-25 | OP ---
PATIENT NAME: OKSANA JENNINGS MEDICAL RECORD: [id number] :38 LOCATION:D.CAT ADMISSION DATE: SURGEON: DEBBIE DRAKE MD DATE OF OPERATION: 11/25/2017 PROCEDURES: 1. PTCA stent RCA. 2. Left heart catheterization. 3. Selective coronary angiography. 4. Left ventriculogram. INDICATION: Chest pain, angina, and coronary artery disease. PROCEDURE IN DETAIL: After informed consent was obtained and after a detailed description of risks, benefits as well as alternative therapies, the patient elected to proceed with angiogram and angioplasty. The right femoral area was prepped and draped in normal sterile fashion. The right femoral artery was cannulated via modified Seldinger technique with placement of 6-Irish sheath. All catheters exchanged through this sheath. FINDINGS: The left ventriculogram was performed in standard 30-degree ROJO view reveals preserved cardiac wall motion, ejection fraction 50%. SELECTIVE CORONARY ANGIOGRAPHY: 1. Left main is with no significant angiographic disease. 2. Left anterior descending has moderate irregularities, but no flow-limiting stenosis. Previously placed stents are widely patent. 3. Left circumflex has moderate irregularities, but no flow-limiting stenosis. 4. Right coronary artery has 80% stenosis at the ostium, otherwise only swts-zl-imetruah irregularities. PTCA STENT OF THE RCA: The stent used was a 3.5 x 15 mm Integrity stent. Result was 0% residual stenosis. OVERALL IMPRESSION: Successful percutaneous transluminal coronary angioplasty stent of the right coronary artery going from 80% initial stenosis to 0% residual. TRANSINT:[id number] Voice Confirmation ID: [id number] DOCUMENT ID: [id number] DEBBIE DRAKE MD at 1843 CC: [id number] DICTATION DATE: 11/25/17 1401 EXHIBITOR SALES: 11/25/17 1407 DEP CLI 11/25/17 [place] [address]
--- NOTE | ~2017-11-25 | HEMODYNAMI ---
PATIENT:OKSANA JENNINGS MEDICAL RECORD: [id number] : 36 LOCATION:[facility] ADMISSION DATE: 11/25/17 Generatedon:11/25/201714:01 Patient name: OKSANA JENNINGS Patient #: [id number] SSN: DO B: 1940 Date of study: 11/25/2017 Page: Of Hemodynamic Procedure Report Patient Data Patient Demographics Procedure consent was obtained First Name: OKSANA Gender: Male Last Name: MICHAELA : 1940 [facility] Initial: CAYLA Age: 77 year(s) Patient #: [id number] Race: Additional ID: [id number] Contact details Address: [address] [place] [address] [facility] State: [place] City: [place] Zip code: [address] Past Medical History History of disease Date Diagnosis Comments CAD Hypertension Diabetes Allergies Allergen Reaction Date Comments Reported Other allergy 08/12/2014 Benadryl, Bactrim Other allergy 09/10/2016 Bactrim, Benadryl Other allergy 07/06/2017 Atenolol, Rapaflo, Taztia XL, Hydralazine Admission Admission Data Admission Date: 11/25/2017 Admission Time: 8:07 Lab Results Lab Result Date: 11/25/2017 Lab Result Time: 0:00 Biochemistry Name Units Result Min Max BUN mg/dl 84 --(----)-* 7 18 Creatinine mg/dl 4.6 --(----)-* 0.6 1.3 CBC Name Units Result Min Max Hemoglobin g/dl 8.1 *-(----)-- 13.5 17.5 Procedure Procedure Types Cath Procedure Diagnostic Procedure LHC LHC w/Coronaries Sedation Charges Moderate Sedation up to 15 minutes PCI Procedure Coronary Stent Coronary Stent Initial Procedure Description Procedure Date Procedure Date: 11/25/2017 Procedure Start Time: 13:44 Procedure End Time: 13:58 Procedure Staff Name Function Trevon Cooney MD Performing Physician Lacy Moseley RT Monitor Artem De Luna RN Nurse Michelet Barber RN Nurse Karla Lainez RT Scrub Phu Beckerdamien RT Cigar Bander Hand Procedure Data Cath Procedure Fluoroscopy Diagnostic fluoroscopy Total fluoroscopy Time: 2 time: 2 min min Diagnostic fluoroscopy Total fluoroscopy dose: 572 dose: 572 mGy mGy Contrast Material Contrast Material Type Amount (ml) Isovue 300 52 Entry Location Entry Primary Successful Side Size Upsize Upsize Entry Closure Succes sful Closure Location (Fr) 1 (Fr) 2 (Fr) Remarks Device Remarks Femoral Right 5 Fr 6 Fr Exoseal artery Short Estimated blood loss: 5 ml Diagnostic catheters Device Type Used For End Catheter Placement MULTIPACK Pigtail 5 Fr LV Angiography catheter MULTIPACK JL 4.0 5Fr Left Coronary catheter Angiography MULTIPACK 3DRC 5Fr Right Coronary catheter Angiography Procedure Complications No complications Procedure Medications Medication Administration Route Dosage Oxygen etCO2 Nasal cannula 2 l/min Heparin Flush Bag added to field 2 bags (1000units/500ml NS) 0.9% NaCl I.V. 100 ml/hr Fentanyl I.V. 50 mcg Versed I.V. 1 mg Fentanyl I.V. 50 mcg Versed I.V. 1 mg Heparin Bolus I.V. 4000 units Integrilin (Bolus I.V. 7.9 ml 2mg/ml) Integrilin (Bolus wasted 2.1 ml 2mg/ml) Plavix P.O. 600 mg Hemodynamics Rest HGB: 8.1 (g/dl) Heart Rate: 97 (bpm) Pressure Samples Time Site Value (mmHg) Purpose Heart Use Rate(bpm) 13:46 LV 136/10,19 Snapshot 84 Snapshots Pre Cath Intra NCS Post Cath Vital Signs Time Heart Resp SPO2 etCO2 NIBP (mmHg) Rhythm Pain Sedation Rate (ipm) (%) (mmHg) Status Level (bpm) 13:07:30 98 16 97 20.2 160/57(110) NSR 0 (11) 10(A) , No pain 13:12:51 98 17 90 16.5 157/64(98) NSR 0 (11) 10(A) , No pain 13:17:13 93 17 90 15 165/64(117) NSR 0 (11) 10(A) , No pain 13:21:38 88 17 97 27.7 157/58(114) NSR 0 (11) 10(A) , No pain 13:26:04 84 16 91 27.7 150/57(100) NSR 0 (11) 10(A) , No pain 13:30:30 78 17 90 26.2 147/55(94) NSR 0 (11) 10(A) , No pain 13:34:48 83 17 90 25.5 144/56(106) NSR 0 (11) 10(A) , No pain 13:39:12 86 16 91 25.5 143/50(109) NSR 0 (11) 10(A) , No pain 13:43:37 83 17 92 21 146/54(106) NSR 0 (11) 10(A) , No pain 13:48:01 80 17 91 29.2 149/59(97) NSR 0 (11) 10(A) , No pain 13:52:25 82 17 90 28.5 144/50(91) NSR 0 (11) 10(A) , No pain 13:56:47 80 16 92 0 152/59(106) NSR 0 (11) 10(A) , No pain 13:59:23 82 17 91 24 148/52(87) NSR 0 (11) 10(A) , No pain Medications Time Medication Route Dose Verified Delivered Reason Notes Effectiveness by by 13:40:45 Oxygen etCO2 2 Trevon Tafoya Per physician Nasal l/min Ivet Barber RN cannula 13:40:53 Heparin Flush added 2 Trevon Tafoya used for Bag to bags Ivet Barber fiberglass roller (1000units/500ml field NS) 13:41:01 0.9% NaCl I.V. 100 Trevon Tafoya Per physician ml/hr Ivet Barber RN 13:41:31 Fentanyl I.V. 50 Trevon Tafoya for sedation mcg Ivet Barber RN 13:41:37 Versed I.V. 1 mg Trevon Tafoya for sedation Ivet Barber RN 13:53:17 Fentanyl I.V. 50 Trevon Tafoya for sedation mcg Ivet Barber RN 13:53:21 Versed I.V. 1 mg Trevon Tafoya for sedation Ivet Barber RN 13:53:29 Heparin Bolus I.V. 4000 Trevon Tafoya for units Ivet Barber RN anticoagulation 13:53:41 Integrilin I.V. 7.9 Trevon Tafoya for (Bolus 2mg/ml) ml Ivet Barber RN antiplatelet therapy 13:53:48 Integrilin wasted 2.1 Trevon Tafoya for (Bolus 2mg/ml) ml Ivet Barber RN antiplatelet therapy 13:57:48 Plavix P.O. 600 Trevon Tafoya for mg Ivet Barber RN antiplatelet therapy Procedure Log Time Note 12:30:16 Phu Suit RT(R) sent for patient. Start room use. 12:36:35 Diagnostic Cath Status : Elective 12:37:17 Time tracking: Regular hours (M-F 7:00 - 5:00) 12:37:22 Plan of Care:Hemodynamics will remain stable., Cardiac rhythm will remain stable., Comfort level will be maintained., Respiratory function will remain adequate., Patient/ family verbilizes understanding of procedure., Procedure tolerated without complication., Recovers from procedure without complications.. 12:44:25 Patient received from Pre/Post Procedure Room to [facility] 2 Alert and oriented. Tansferred to table in Supine position. 12:44:26 Warm blankets applied, and catherine hugger turned on for patient comfort. 12:44:27 Correct patient and procedure confirmed by team. 12:44:28 Signed procedure consent form obtained from patient. 12:44:31 ECG and BP/O2 sat monitors applied to patient. 13:05:04 Lab Result : Hemoglobin 8.1 g/dl 13:05:04 Lab Result : Creatinine 4.6 mg/dl 13:05:04 Lab Result : BUN 84 mg/dl 13:05:22 Vital chart was started 13:05:23 Baseline sample Acquired. 13:05:30 Rhythm: sinus tachycardia 13:05:31 Full Disclosure recording started 13:05:34 H&P Date Dictated: 11/25/2017 Within 30 days and on chart., H&P Addendum completed by physician on day of procedure. (MUST COMPLETE FOR ALL OUTPATIENTS). 13:05:36 Pre-procedure instructions explained to patient. 13:05:39 Pre-op teaching completed and patient verbalized understanding. 13:05:44 Family in patients room. 13:14:20 Patient NPO since Midnight. 13:14:48 see chart 13:14:58 Is the patient allergic to Iodine/contrast media? No. 13:14:59 Was the patient premedicated? No 13:15:12 Is patient on blood thinner?No 13:15:23 Patient diabetic? Yes. 13:15:25 If diabetic: On Metformin? No 13:15:33 Previous problem with sedation/anesthesia? No ? 13:15:37 Snore? Yes 13:15:38 Sleep apnea? No 13:15:39 Deviated septum? No 13:15:39 Opens mouth fully? Yes 13:15:40 Sticks out tongue? Yes 13:15:47 Airway obstruction? No ? 13:15:51 Dentures? Yes in tight 13:16:25 Pre procedure: right dorsailis pedis pulse 1+ Palpable, but thready & weak; easily obliterated 13:16:27 Pre procedure: left dorsailis pedis pulse 1+ Palpable, but thready & weak; easily obliterated 13:16:36 Patient pain scale 0/10 ?. 13:16:58 IV patent on arrival in right forearm with 0.9% NaCl at KVO. 13:17:00 Lab results completed and on chart. 13:17:06 Right groin area was prepped with chlora-prep and draped in sterile fashion 13:17:07 Alarms reviewed by R. N. 13:17:07 Sharps counted by scrub and verified by R.N. 13:37:11 Physician arrived 13:37:11 --------ALL STOP TIME OUT------ 13:37:12 Final Timeout: patient, procedure, and site verified with staff and physician. All members of the team are in agreement. 13:37:15 Right groin site verified by team. 13:37:18 Physical assessment completed. ASA score P 2 - A patient with mild systemic disease as per Trevon Cooney MD. 13:37:22 Sedation plan: IV Moderate Sedation Medication:Versed, Fentanyl 13:38:38 Use device set Femoral Dx 13:38:39 ACIST Syringe (67808) opened to sterile field. 13:38:39 Bag Decanter () opened to sterile field. 13:38:40 Medline Cath Pack ([id number]) opened to sterile field. 13:38:40 DIAGNOSTIC WIRE .035 260cm J wire (115205) opened to sterile field. 13:38:41 ACIST Hand Control (95937) opened to sterile field. 13:38:42 ACIST Manifold (20159) opened to sterile field. 13:38:42 DIAGNOSTIC Multipack 5Fr catheter set ([id number]) opened to sterile field. 13:38:43 Tegaderm 4 x 4 (1626W) opened to sterile field. 13:38:44 SHEATH Prelude 5Fr 0.035 (YHO-0Z-89-035) opened to sterile field. 13:40:45 Oxygen 2 l/min etCO2 Nasal cannula was administered by Michelet Barber RN; Per physician; 13:40:53 Heparin Flush Bag (1000units/500ml NS) 2 bags added to field was administered by Michelet Barber RN; used for procedure; 13:41:01 0.9% NaCl 100 ml/hr I.V. was administered by Michelet Barber RN; Per physician; 13:41:31 Fentanyl 50 mcg I.V. was administered by Michelet Barber RN; for sedation; 13:41:37 Versed 1 mg I.V. was administered by Michelet Barber RN; for sedation; 13:44:03 Procedure started. 13:44:07 Local anesthetic to right femoral artery with Lidocaine 2% by Trevon Cooney MD.INITIAL ACCESS ONLY 13:44:46 A 5 Fr sheath was inserted into the Right Femoral artery 13:45:44 A MULTIPACK Pigtail 5 Fr catheter was advanced over the wire and used for LV Angiography. 13:46:34 LV hemodynamics recorded. 13:46:35 LV gram done using ROJO 13:46:38 Injector settings: Ml/sec: 5, Volume: 15, 13:46:44 EF : 60 % 13:46:48 Catheter removed. 13:46:53 A MULTIPACK JL 4.0 5Fr catheter was advanced over the wire and used for Left Coronary Angiography. 13:49:22 LCA angiography performed. 13:49:25 Injector settings: Ml/sec: 3, Volume: 6, 13:49:29 Catheter removed. 13:49:43 A MULTIPACK 3DRC 5Fr catheter was advanced over the wire and used for Right Coronary Angiography. 13:49:58 RCA angiography performed. 13:50:12 Injector settings: Ml/sec: 3, Volume: 6, 13:50:19 Catheter removed. 13:50:20 Proceeding to intervention. 13:50:29 SHEATH Prelude 6Fr 0.035 (CAK-8R-66-035) opened to sterile field. 13:50:35 INFLATOR Merit BasixCompak (FI2500) opened to sterile field. 13:50:44 CHOICE PT Extra Support 182cm wire ([id number]) opened to sterile field. 13:51:28 GUIDE 6FR 3DRC SH catheter ([id number]) opened to sterile field. 13:52:10 Sheath upsized to a 6 Fr Short. 13:52:17 6 Fr 3drc sh guide catheter was inserted over the wire 13:52:21 choice pt wire advanced. 13:53:17 Fentanyl 50 mcg I.V. was administered by Michelet Barber RN; for sedation; 13:53:21 Versed 1 mg I.V. was administered by Michelet Barber RN; for sedation; 13:53:29 Heparin Bolus 4000 units I.V. was administered by Michelet Barber RN; for anticoagulation; 13:53:41 Integrilin (Bolus 2mg/ml) 7.9 ml I.V. was administered by Michelet Barber RN; for antiplatelet therapy; 13:53:48 Integrilin (Bolus 2mg/ml) 2.1 ml wasted was administered by Michelet Barber RN; for antiplatelet therapy; 13:54:31 Wire advanced across lesion. 13:55:02 Inflate balloon Inflation number: 1 A INTEGRITY RX 3.5 x 15 stent ([id number]) was prepped and advanced across the Prox RCA, then inflated to 23 MISSAEL for 0:10 (min:sec). 13:56:09 Stent catheter was removed intact over wire. 13:56:09 Wire removed. 13:56:10 Guide catheter removed. 13:56:15 EXOSEAL 6Fr (EX600) opened to sterile field. 13:56:26 Sheath removed intact; hemostasis achieved with Exoseal to the Right Femoral artery. 13:56:29 Procedure ended.(Physican Out) 13:57:06 Fluoroscopy time 02.00 minutes. 13:57:10 Flurop Dose total: 572 13:57:10 Fluoroscopy dose: 572 mGy 13:57:13 Contrast amount:Isovue 300 52ml. 13:57:14 Sharps counted by scrub and verified by R.N. 13:57:15 Insertion/operative site no bleeding no hematoma. 13:57:18 Post-op/insertion site Right Femoral artery dressed using a 4 x 4 and Tegaderm. 13:57:21 Post right femoral artery:stable 13:57:23 Post Procedure Pulses reassessed and unchanged 13:57:25 Post procedure rhythm: unchanged. 13:57:27 Estimated blood loss: 5 ml 13:57:29 Post procedure instruction explained to patient.Patient verbalizes understanding. 13:57:29 Patient needs reinforcement of post procedure teaching. 13:57:43 Procedure type changed to Cath procedure, Diagnostic procedure, LHC, LHC w/Coronaries, Sedation Charges, Moderate Sedation up to 15 minutes, PCI procedure, Coronary Stent, Coronary Stent Initial 13:57:44 Procedure and supply charges have been captured, reviewed, submitted and are correct. 13:57:48 Plavix 600 mg P.O. was administered by Michelet Barber RN; for antiplatelet therapy; 13:57:50 Procedure Complication : No complications 13:57:52 Vital chart was stopped 13:57:53 See physician's report for complete and final results. 13:57:54 Report given to Pre/Post Procedure Room. 13:57:57 Patient transfered to Pre/Post Procedure Room with Stretcher. 13:57:59 Procedure ended. 13:57:59 Full Disclosure recording stopped 13:58:06 ACC-PCI Only Patient was given prescriptions, or instructed by Trevon Cooney MD to start/continue the following medications upon discharge: Plavix 13:58:08 End room use (Document Last) Intervention Summary Intervention Notes Time ActionType Lesion and Equipment Action# Pressure Duration Attributes Used 13:55:02 Inflate Prox RCA INTEGRITY RX 1 23 00:10 balloon 3.5 x 15 stent ([id number]) Device Usage Item Name Manufacture Quantity Catalog Number Hospital Part Current Minimal Lot# / Charge Number Stock Stock Serial# Code ACIST Syringe Acist 1 64920 264386 687432 [id number] 20 (19199) [employer] Inc Bag Decanter Microtek 1 673222 70515 546636 5 () Medical Inc. Medline Cath Cardinal 1 [id number] 956837 12777 429856 5 Netsocket [facility] ([id number]) DIAGNOSTIC WIRE St Pj 1 152396 237037 569278 900884 30 .035 260cm J wire (274775) ACIST Hand Acist 1 85176 604900 824725 560405 5 Control (29482) Medical [employer] Inc ACIST Manifold Acist 1 96071 122263 025011 726852 5 (75577) [employer] Inc DIAGNOSTIC Cardinal 1 [id number] 557812 04518 056002 30 Multipack 5Fr Health catheter set ([id number]) Tegaderm 4 x 4 3M 1 1626W 971211 520926 163692 5 (1626W) SHEATH Prelude Merit 1 NAO-2Q-41-035 758411 549994 897292 5 5Fr 0.035 Medical (TDJ-4A-07-035) MULTIPACK Cardinal 1 416143 5 Pigtail 5 Fr Health catheter MULTIPACK JL Cardinal 1 244987 5 4.0 5Fr Health catheter MULTIPACK 3DRC Cardinal 1 244921 5 5Fr catheter Health SHEATH Prelude Merit 1 SED-2T-37-35 368000 0610617 868504 5 6Fr 0.035 Medical (CCF-6G-19-035) INFLATOR Merit Merit 1 [id number] 616463 380677 057580 15 BasTynkerriLaunchpad Toys Medical (GG8283) CHOICE PT Extra [place] 1 [id number] 618122 304401 499361 5 Support 182cm Scientific wire ([id number]) GUIDE 6FR 3DRC Medtronic 1 [id number] 582921 662324 533434 1 SH catheter ([id number]) INTEGRITY RX Medtronic 1 [id number] 348762 522253 547476 5 [id number] 3.5 x 15 stent ([id number]) EXOSEAL 6Fr Cardinal 1 EX600 144710 902506 360989 10 (EX600) Health Signature [facility] [place] Stage Time Signature Unsigned Intra-Procedure 11/25/2017 Lacy Moseley 2:01:21 PM RT(R) Signatures Monitor : Lacy Moseley RT Signature : Date : Time : [facility] [address] [place] [address]
[2017-11-25] MEDS ORDERED: METOLAZONE5 MG PO (08:53)
[2017-11-25 09:03] VITALS: BP 138/44; Ht 170.2 cm; Wt 84.5 kg
[2017-11-25 09:38] LABS: ANION GAP 13.8 mmol/L (8-16); CALCIUM 9.1 mg/dL (8.5-10.1); CARBON DIOXIDE 23.4 mmol/L (21.0-32.0); CREATININE - SERUM 4.6 mg/dL (0.6-1.3); POTASSIUM - SERUM 5.2 mmol/L (3.5-5.1)
[2017-11-25 09:43] LABS: BASOPHILS 0.4 % (0-2); EOSINOPHILS 2.6 % (0-7); HEMOGLOBIN 8.1 g/dL (13.5-17.5); IMMATURE GRANULOCYTES 3.5 % (0-5); MCH 26.5 pg (26.0-34.0); MCHC 31.2 g/dL (31.0-37.0); MEAN PLATELET VOLUME 9.4 fL (7.4-10.4); MONOCYTES 7.1 % (2-11); NEUTROPHILS 69.4 % (40-80); RBC 3.06 10x6/uL (4.20-6.10); RDW 14.4 % (11.5-14.5); WBC 11.3 10x3/uL (4.8-10.8)
[2017-11-25 09:44] LABS: PLATELET COUNT 401 10x3/uL (130-400)
[2017-11-25] MEDS ORDERED: PLAVIX75 MG PO (14:09)
== END 2017-11-25 17:55 | disposition home or self-care (01) ==
LOC: D.CATH 08:07
PROVIDERS: Internal Medicine Interventional Cardiology
DX: I25.119 Atherosclerotic heart disease of native coronary artery with unspecified angina pectoris (principal); Z01.812 Encounter for preprocedural laboratory examination

== ENCOUNTER → 2018-01-11 14:35 | Outpatient (CLI) | payer MEDICARE, OTHER ==
[2017-11-25 09:03] VITALS: BMI 29.2
[~2018-01-11 14:35] MED LIST changes: +ALIGN4 MG PO; +ASCORBIC ACID500 MG PO; +BENICAR40 MG PO; +FUROSEMIDE20 MG PO; -LASIX40 MG PO; +METOLAZONE5 MG PO; +NITROSTAT0.4 MG SL
== END | disposition home or self-care (01) ==
LOC: D.LAB 14:35
DX: Z12.5 Encounter for screening for malignant neoplasm of prostate (principal)

== ENCOUNTER 2018-01-24 09:30 | Day surgery (SDC) | payer MEDICARE, OTHER ==
[~2018-01-24] VITALS: Ht 170.2 cm; Wt 80.9 kg
--- NOTE | ~2018-01-24 | OP ---
PATIENT NAME: DELIO JENNINGS MEDICAL RECORD: [id number] :38 LOCATION:D.OPS ADMISSION DATE: SURGEON: DELIO HENLEY MD DATE OF OPERATION: 01/24/2018 SURGEON: Delio Henley MD ANESTHESIA: TIVA by Cheryl Elam CRNA. 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 PROCEDURES: Cystoscopy and UroLift procedure with 4 implants placed. FINDINGS: Obstructive bilateral lateral lobes. Single ureteral orifices bilaterally. Trabeculated bladder without any bladder tumors. CLINICAL HISTORY: This is a 77-year-old male, who has had a longstanding history of obstructive voiding symptoms. He has urinary frequency and urgency. He also tends to get recurrent urinary tract infections. He has been on medications for his prostate without success. He does have diabetes mellitus type 2 and he is on dialysis. When I saw him, he had another urinary tract infection. A PSA drawn at that time was quite elevated, but I am going to discount it as it was drawn while he had a UTI. He has been treated for his urinary tract infection. He comes now to have his prostate treated with a UroLift procedure. HE HAS MULTIPLE DRUG ALLERGIES, but he is not allergic to Ancef. He was given Ancef logistics operations manager to the OR. At a later date, we will repeat his PSA and if it is still high at that point, we may have to perform a biopsy. DESCRIPTION OF PROCEDURE: The patient was given IV sedation. He was placed in dorsal lithotomy position, prepped and draped. Cystoscopy was performed using a 20-Marshallese cystoscope with 30-degree lens. Penile urethra shows no strictures or obstruction. Both lateral lobes are quite obstructive on the prostate. The bladder neck is not elevated. He does not have any significant median lobe. Single ureteral orifices are seen. No bladder tumors were seen. We then placed UroLift implant on the left lateral lobe of the prostate about 2 cm distal to the bladder neck. A similar implant was placed on the corresponding location in the right side. We then placed a fourth implant just proximal to the verumontanum in the left lateral lobe. A corresponding fourth implant was placed on the right lateral lobe near the verumontanum. After these implants were in place, he had a nice wide open voiding channel. The bladder was left partly full. We will make sure that the patient can void prior to going back home to [place], [place]. I will see him in followup in 3 weeks' time. TRANSINT:[id number] Voice Confirmation ID: [id number] DOCUMENT ID: [id number] DELIO HENLEY MD at 1547 CC: [id number] DICTATION DATE: 01/24/18 1442 SPR[place] FORMER MACHINE: 01/24/18 [id number] [place] [address]
[~2018-01-24 09:30] MED LIST changes: -ALIGN4 MG PO; -ASCORBIC ACID500 MG PO; -BENICAR40 MG PO; -NITROSTAT0.4 MG SL
[2018-01-24 09:51] LABS: BASOPHILS 0.4 % (0-2); EOSINOPHILS 1.4 % (0-7); HEMATOCRIT 31.2 % (42.0-54.0); HEMOGLOBIN 9.9 g/dL (13.5-17.5); IMMATURE GRANULOCYTES 0.2 % (0-5); LYMPHOCYTES 21.5 % (15-50); MCH 26.9 pg (26.0-34.0); MCHC 31.7 g/dL (31.0-37.0); MCV 84.8 fL (80.0-100.0); MEAN PLATELET VOLUME 9.3 fL (7.4-10.4); MONOCYTES 11.9 % (2-11); NEUTROPHILS 64.6 % (40-80); RBC 3.68 10x6/uL (4.20-6.10); WBC 10.2 10x3/uL (4.8-10.8)
[2018-01-24 09:54] LABS: PLATELET COUNT 264 10x3/uL (130-400)
[2018-01-24 10:02] LABS: ANION GAP 12.7 mmol/L (8-16); CALCIUM 8.4 mg/dL (8.5-10.1); CARBON DIOXIDE 28.9 mmol/L (21.0-32.0); CREATININE - SERUM 5.5 mg/dL (0.6-1.3); POTASSIUM - SERUM 4.6 mmol/L (3.5-5.1)
[2018-01-24 10:30] LABS: INR 1.24 (0.85-1.17); PROTIME 15.2 SECONDS (11.6-15.0)
[2018-01-24] MEDS ORDERED: BENICAR40 MG PO (11:02)
[2018-01-24] MEDS ORDERED: ALIGN4 MG PO (11:09)
[2018-01-24] MEDS ORDERED: NITROSTAT0.4 MG SL (11:09)
[2018-01-24] MEDS ORDERED: MULTI-DAY VITAM1 TAB PO (11:10)
[2018-01-24] MEDS ORDERED: ASCORBIC ACID500 MG PO (11:10)
[2018-01-24 11:25] VITALS: Ht 170.2 cm; Wt 80.9 kg
== END 2018-01-24 16:30 | disposition home or self-care (01) ==
LOC: D.OPS 09:30 → D.PAN 13:30 → D.OPS 16:30
PROVIDERS: Anesthesiology
DX: N40.1 Benign prostatic hyperplasia with lower urinary tract symptoms (principal); N13.8 Other obstructive and reflux uropathy; R35.0 Frequency of micturition; R39.15 Urgency of urination; E11.9 Type 2 diabetes mellitus without complications; Z87.440 Personal history of urinary (tract) infections; N32.89 Other specified disorders of bladder; Z99.2 Dependence on renal dialysis; Z01.812 Encounter for preprocedural laboratory examination

== ENCOUNTER 2018-02-17 17:10 | Inpatient (IN) | payer MEDICARE, OTHER ==
[~2018-02-17] VITALS: Ht 170.2 cm; Wt 76.2 kg
--- NOTE | ~2018-02-17 | RHP ---
PATIENT: OKSANA JENNINGS MEDICAL RECORD: [id number] ACCOUNT: [id number] LOCATION:[id number] : 38 ADMISSION DATE: 02/17/18 REHABILITATION HISTORY AND PHYSICAL EXAMINATION POST ADMISSION PHYSICIAN EXAMINATION DATE OF ADMISSION TO REHAB: 02/17/2018 ADMITTING DIAGNOSES: Left acute stroke with hemorrhagic transformation. 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 This is a 77-year-old gentleman with history of end-stage renal disease, diabetes, hypertension. He is on hemodialysis. He has had coronary artery disease and tobacco use, sent to the Emergency Room at [facility] after he fell in the bathtub, was found to have a right-sided weakness and slurred speech. CT of his head was unremarkable at that time. He received TPA in the [facility], he was transferred via EMS for further neurological evaluation and treatment. Repeat CT showed a resolving left anterior cerebral artery infarct. CTA of the head and neck revealed mild stenosis of the left internal carotid artery, but severe stenosis of right internal carotid artery and now atheromatous calcification of bilateral cavernous internal carotid arteries without stenosis. MRI showed an anterior cerebral artery stroke with hemorrhagic transformation. He developed AFib, was started on amiodarone and will follow up with Dr. Cooney. He is tolerating a diabetic diet, urinating without difficulty. His last BM was 02/16/2018. He does have right-sided weakness, but is motivated to participate in therapy. He has not attempted ambulation due to his right lower extremity weakness. Transfers with max assist and performs ADLs with min-to-max assist. He was completely independent prior to this hospitalization, he will drive, living at home with his . Acute inpatient rehabilitation was ordered by his MD prior to him being able to return home. COMORBIDITIES: In this patient include hypertension; coronary artery disease; end-stage renal disease, on dialysis and diabetes. PAST MEDICAL HISTORY: Significant for atrial fibrillation, hypertension, diabetes, coronary artery disease, end-stage renal disease and tobacco use. PAST SURGICAL HISTORY: Includes stent placement. ALLERGIES: ATENOLOL, BACTRIM, BENADRYL, HYDRALAZINE, RAPAFLO, LEVAQUIN AND CEFUROXIME. CURRENT MEDICATIONS: Include Benicar 40 mg daily; Zetia 10 mg daily; Senokot 1 tab daily; Plavix 75 mg daily; Dulcolax 5 mg daily; atorvastatin 80 mg daily; aspirin chewable 81 daily; Cordarone 400 mg daily, I will switch over on 03/20/2018 to 200 mg; Flomax 0.4 mg b.i.d.; Nitrostat p.r.n.; nifedipine XL or Procardia 60 mg b.i.d.; Lantus 30 units at bedtime; furosemide 10 mg b.i.d.; Desyrel 25 mg at bedtime; melatonin 3 mg at bedtime and Colace 100 mg b.i.d. HABITS: Does have a history of tobacco use. FAMILY HISTORY: Noncontributory. SOCIAL HISTORY: The patient hopes to return back over to the [facility] and get HISTORY AND PHYSICAL [id number] OKSANA JENNINGS back to his prior level of functioning. REVIEW OF SYSTEMS: GENERAL: Does complain of some weakness, mainly on one side. HEENT: Denies cold, cough, or congestion. CARDIOVASCULAR: Denies chest pain. PHYSICAL EXAMINATION: VITAL SIGNS: Stable, afebrile. GENERAL: An elderly gentleman in no acute distress, alert upon exam. HEENT: Normocephalic and atraumatic. Mucosa moist. NECK: Supple. No lymphadenopathy. LUNGS: Clear at this time. HEART: Irregular rate and rhythm. ABDOMEN: Benign. EXTREMITIES: No clubbing, cyanosis or edema. NEUROLOGIC: He does have noted unilateral weakness. LABORATORY DATA: His white count is 13,000, H&H 9.7 and 30.7 and platelet count is noted to be 367. His sodium is 137, potassium 3.7, BUN and creatinine 52 and 4.5 and blood sugar is noted to be 162. ASSESSMENT: This is a 77-year-old gentleman admitted to the rehab with a working diagnosis of cerebrovascular accident with hemorrhagic transformation involving the anterior cerebral artery. The patient has potential to make improvement. We instituted the following multidisciplinary therapies include, but not limited to physical, occupational, respiratory, speech, nutritional services, prosthetics and orthotics. Given his complex medical condition and risk for more complications, rehabilitation services cannot be provided at a low level of care such as alf facility. PLAN: 1. Admit to [facility] for intensive inpatient therapy to include the following disciplines: A. Physical therapy to improve gait, all transfer skills and bed mobility to a modified independent level. B. Occupational therapy to a modified independent level. C. Case management to assist with discharge planning and placement options. D. Nutrition to assist with nutritional needs. E. Rehabilitation nursing to assist in monitoring the patient's underlying medical conditions and to assist with any type of bowel or bladder management. 2. The patient's current medication and medical care will be continued. 3. The patient will be placed on standard fall precautions. 4. I am going to go ahead and consult renal to see him during his stay. 5. We will watch for any signs of bleeding on his Plavix and aspirin and we will follow recommendations from EMS. TRANSINT:[id number] Voice Confirmation ID: [id number] DOCUMENT ID: [id number] BRIGITTE notes whether there has been none or any medical/functional change since admission: - HISTORY AND PHYSICAL [id number] OKSANA JENNINGS attests patient continues to be appropriate for IRF: - ABIODUN SANCHEZ MD at 1705 CC: [id number] DICTATION DATE: 02/18/18 0928 DIRECTOR OF COLLECTIONS AND ARCHIVES: 02/18/18 1012 ADM IN [facility] [address] [id number]
[~2018-02-17 17:10] MED LIST changes: +ALIGN4 MG PO; +ASCORBIC ACID500 MG PO; +BENICAR40 MG PO; +NITROSTAT0.4 MG SL
[2018-02-17 19:30] LABS: BASOPHILS 0.2 % (0-2); HEMATOCRIT 30.7 % (42.0-54.0); HEMOGLOBIN 9.7 g/dL (13.5-17.5); IMMATURE GRANULOCYTES 0.5 % (0-5); LYMPHOCYTES 13.5 % (15-50); MCH 26.7 pg (26.0-34.0); MCHC 31.6 g/dL (31.0-37.0); MCV 84.6 fL (80.0-100.0); MEAN PLATELET VOLUME 9.4 fL (7.4-10.4); NEUTROPHILS 73.8 % (40-80); RBC 3.63 10x6/uL (4.20-6.10); RDW 16.4 % (11.5-14.5)
[2018-02-17 19:32] LABS: PLATELET COUNT 367 10x3/uL (130-400)
[2018-02-17 19:38] LABS: ANION GAP 11.5 mmol/L (8-16); CALCIUM 8.8 mg/dL (8.5-10.1); CARBON DIOXIDE 33.2 mmol/L (21.0-32.0); CREATININE - SERUM 4.5 mg/dL (0.6-1.3); POTASSIUM - SERUM 3.7 mmol/L (3.5-5.1)
[2018-02-17 20:00] VITALS: BP 151/48
[2018-02-17 22:09] VITALS: BP 151/48
[2018-02-18] MEDS ORDERED: PACERONE400 MG PO (05:12)
[2018-02-18] MEDS ORDERED: ELIQUIS2.5 MG PO (05:13)
[2018-02-18] MEDS ORDERED: ASPIRIN81 MG PO (05:15)
[2018-02-18] MEDS ORDERED: LIPITOR80 MG PO (05:16)
[2018-02-18] MEDS ORDERED: DULCOLAX5 MG PO (05:17)
[2018-02-18] MEDS ORDERED: PLAVIX75 MG PO (05:20)
[2018-02-18] MEDS ORDERED: COLACE100 MG PO (05:21)
[2018-02-18] MEDS ORDERED: MELATONIN 3 MG1 TAB PO (05:23)
[2018-02-18] MEDS ORDERED: SENNA LAXATIVE8.6 MG PO (05:24)
[2018-02-18] MEDS ORDERED: DESERYL50 M2 PO (05:25)
[2018-02-18] MEDS ORDERED: ZETIA10 MG PO (05:26)
[2018-02-18] MEDS ORDERED: SOLIQUA 100 UNIT3 ML SQ (05:29)
[2018-02-18] MEDS ORDERED: NIFEDIPINE60 MG/BOTT PO (05:30)
[2018-02-18] MEDS ORDERED: NITROSTAT0.4 MG PO (05:33)
[2018-02-18] MEDS ORDERED: BENICAR40 MG PO (05:34)
[2018-02-18] MEDS ORDERED: FLOMAX0.4 MG PO (05:36)
[2018-02-18 09:43] VITALS: BP 129/42
[2018-02-18 15:11] VITALS: BMI 26.3
[2018-02-18 21:03] VITALS: BP 146/40
[2018-02-19 09:21] VITALS: BP 144/48
[2018-02-19 09:31] VITALS: Ht 170.2 cm; Wt 76.2 kg
[2018-02-19 20:00] VITALS: BP 172/58
[2018-02-20 07:06] LABS: BASOPHILS 0.5 % (0-2); EOSINOPHILS 4.3 % (0-7); HEMOGLOBIN 8.7 g/dL (13.5-17.5); IMMATURE GRANULOCYTES 0.8 % (0-5); LYMPHOCYTES 17.9 % (15-50); MCH 26.4 pg (26.0-34.0); MCHC 31.1 g/dL (31.0-37.0); MCV 85.1 fL (80.0-100.0); MEAN PLATELET VOLUME 9.3 fL (7.4-10.4); MONOCYTES 9.8 % (2-11); NEUTROPHILS 66.7 % (40-80); PLATELET COUNT 354 10x3/uL (130-400); RBC 3.29 10x6/uL (4.20-6.10); RDW 16.1 % (11.5-14.5); WBC 11.9 10x3/uL (4.8-10.8)
[2018-02-20 07:36] LABS: ANION GAP 18.2 mmol/L (8-16); CALCIUM 9.1 mg/dL (8.5-10.1); CARBON DIOXIDE 26.3 mmol/L (21.0-32.0); CREATININE - SERUM 6.8 mg/dL (0.6-1.3); POTASSIUM - SERUM 3.5 mmol/L (3.5-5.1)
[2018-02-20 08:00] VITALS: BP 140/46
[2018-02-20 15:42] VITALS: BP 123/38
[2018-02-20 16:10] VITALS: BP 127/39
[2018-02-20 20:08] VITALS: BP 144/44
[2018-02-21 08:00] VITALS: BP 151/55
[2018-02-21 18:25] VITALS: BP 141/38
[2018-02-21 19:44] VITALS: BP 131/33
[2018-02-22 07:45] LABS: BASOPHILS 0.2 % (0-2); EOSINOPHILS 3.4 % (0-7); HEMATOCRIT 28.2 % (42.0-54.0); HEMOGLOBIN 8.9 g/dL (13.5-17.5); IMMATURE GRANULOCYTES 1.6 % (0-5); LYMPHOCYTES 12.7 % (15-50); MCH 26.4 pg (26.0-34.0); MCHC 31.6 g/dL (31.0-37.0); MCV 83.7 fL (80.0-100.0); MEAN PLATELET VOLUME 9.7 fL (7.4-10.4); MONOCYTES 10.4 % (2-11); NEUTROPHILS 71.7 % (40-80); RBC 3.37 10x6/uL (4.20-6.10); RDW 15.7 % (11.5-14.5)
[2018-02-22 07:49] LABS: PLATELET COUNT 450 10x3/uL (130-400)
[2018-02-22 07:57] LABS: CALCIUM 9.1 mg/dL (8.5-10.1); CARBON DIOXIDE 27.6 mmol/L (21.0-32.0); CREATININE - SERUM 6.8 mg/dL (0.6-1.3); PHOSPHOROUS 7.3 mg/dL (2.5-4.9); POTASSIUM - SERUM 3.6 mmol/L (3.5-5.1)
[2018-02-22 08:01] VITALS: BP 150/45
[2018-02-22 20:02] VITALS: BP 100/36
[2018-02-23 08:00] VITALS: BP 101/41
[2018-02-23 19:15] VITALS: BP 148/35
[2018-02-24 06:13] LABS: WBC 20.5 10x3/uL (4.8-10.8)
[2018-02-24 06:14] LABS: BASOPHILS 0.3 % (0-2); EOSINOPHILS 1.8 % (0-7); HEMATOCRIT 28.1 % (42.0-54.0); HEMOGLOBIN 8.9 g/dL (13.5-17.5); IMMATURE GRANULOCYTES 2.4 % (0-5); LYMPHOCYTES 10.9 % (15-50); MCH 26.2 pg (26.0-34.0); MCHC 31.7 g/dL (31.0-37.0); MCV 82.6 fL (80.0-100.0); MEAN PLATELET VOLUME 9.7 fL (7.4-10.4); NEUTROPHILS 75.6 % (40-80); PLATELET COUNT 508 10x3/uL (130-400); RDW 15.7 % (11.5-14.5)
[2018-02-24 06:22] LABS: ANION GAP 22.7 mmol/L (8-16); CALCIUM 9.7 mg/dL (8.5-10.1); CARBON DIOXIDE 23.5 mmol/L (21.0-32.0)
[2018-02-24 06:29] LABS: POTASSIUM - SERUM 4.2 mmol/L (3.5-5.1)
[2018-02-24 08:00] VITALS: BP 108/72
[2018-02-24] MEDS ORDERED: BACLOFEN10 MG PO (17:55)
[2018-02-24] MEDS ORDERED: LASIX20 MG PO (17:57)
[2018-02-24] MEDS ORDERED: BASAGLAR K100 UNIT/1 SC (17:58)
[2018-02-24] MEDS ORDERED: CALMOSEPTINE OI71 GM TOPICAL (18:00)
[2018-02-24] MEDS ORDERED: ULTRAM50 MG PO (18:04)
== END 2018-02-24 18:21 | disposition short-term general hospital (02) | DRG 56 ==
LOC: D.REHAB 17:10
PROVIDERS: Emergency Medicine
DX: I69.90 Unspecified sequelae of unspecified cerebrovascular disease (principal); N18.6 End stage renal disease; I12.0 Hypertensive chronic kidney disease with stage 5 chronic kidney disease or end stage renal disease; E11.22 Type 2 diabetes mellitus with diabetic chronic kidney disease; Z99.2 Dependence on renal dialysis; I25.10 Atherosclerotic heart disease of native coronary artery without angina pectoris; R53.1 Weakness

== ENCOUNTER 2018-02-24 17:45 | Inpatient (IN) | payer MEDICARE, OTHER ==
[~2018-02-24] VITALS: Ht 170.2 cm; Wt 69.3 kg
[2018-02-24] VITALS (7 sets, daily range): BP systolic 86–139; BP diastolic 41–76; BMI 25.1
--- NOTE | ~2018-02-24 | CN ---
PATIENT NAME:OKSANA ARREGUIN MEDICAL RECORD: [id number] : 36 LOCATION:D.M2 D.2108 ADMIT DATE: 02/24/18 ACCOUNT: [id number] CONSULTING PHYSICIAN: SRINI SILVESTRE MD REFERRING PHYSICIAN: DEAN WAHL MD DATE OF CONSULTATION: 02/25/2018 CONSULT REQUESTING PHYSICIAN: Dean Wahl MD REASON FOR CONSULTATION: Acute hypoxic respiratory failure, mental status changes. HISTORY OF PRESENT ILLNESS: Mr. Arreguin is a 77-year-old gentleman. When he had a dialysis yesterday, the patient started throwing up full mouth and he aspirated at the same time, the patient was admitted to the ICU and slowly he has mental status changes as well as the patient was getting hypoxic. Now, the patient is almost unresponsive. The history was taken by reviewing the patient's note and talking to the nursing staff. REVIEW OF SYSTEMS: As in history of present illness. PAST MEDICAL HISTORY: 1. End-stage renal disease. 2. Hypertension. 3. Coronary artery disease, status post angioplasty. 4. History of psoriasis. 5. Chronic back pain. 6. Anemia of chronic kidney disease. 7. Hyperlipidemia. 8. Hyperphosphatemia. PAST SURGICAL HISTORY: 1. Cholecystectomy. 2. Cataract surgery. 3. Pilonidal cyst excision in 1958 and 1959. 4. Sinus surgery. 5. Kidney biopsy in 2012. 6. Back surgery. 7. Brachiocephalic AV fistula placement. ALLERGIES: HE IS ALLERGIC TO ATENOLOL, DILTIAZEM, HYDRALAZINE, BENADRYL, BACTRIM AND SULFA. MEDICATIONS: SureWaves is reviewed. PERSONAL AND SOCIAL HISTORY: Recurrent every day smoker. He is a nondrinker. FAMILY HISTORY: Noncontributory. PHYSICAL EXAMINATION: GENERAL: Now, the patient is on BiPAP and the patient is sleepy, arousable. VITAL SIGNS: The blood pressure is 135/45, pulse is 78, respiration is 19, temperature is 99.9, SpO2 is 97% on 80% BiPAP of oxygen. HEENT: Conjunctivae are pink. Sclerae are not icteric. NECK: Supple, no JVD. CONSULT REPORT [id number] OKSANA ARREGUIN CHEST: There are bilateral crackles. No wheezing. HEART: Rhythm regular, normal sound, no murmur. ABDOMEN: Soft, bowel sounds present. No hepatosplenomegaly. RECTAL: Deferred. EXTREMITIES: No cyanosis, no clubbing, no pedal edema. CENTRAL NERVOUS SYSTEM: The patient is sleepy and he is unarousable. IMPRESSION: 1. Acute hypoxic respiratory failure. 2. Aspiration pneumonia. 3. Acute mental status changes, rule out anoxic encephalopathy, possible metabolic encephalopathy. 4. Leukocytosis. 5. End-stage renal disease. 6. Thrombocytosis. 7. Tobacco dependence syndrome, suspect chronic obstructive pulmonary disease. 8. Hyperkalemia. RECOMMENDATION: 1. Continue vancomycin and Zosyn. 2. Start methylprednisolone IV. Start on albuterol/ipratropium nebulizer, Brovana/budesonide nebulizer. Check the serum ammonia level. Check the CT scan of the head. Hemodialysis per Dr. Wahl. Follow up labs and chest radiograph. TRANSINT:[id number] Voice Confirmation ID: [id number] DOCUMENT ID: [id number] SRINI SILVESTRE MD at 1339 CC: [id number] DICTATION DATE: 02/25/18 1125 JIG AND FIXTURE BUILDER APPRENTICE: 02/25/18 1207 ADM IN [place] [id number] [place] [address]
--- NOTE | ~2018-02-24 | MORECARE ---
CASE MANAGEMENT DISCHARGE SUMMARY PATIENT: OKSANA JENNINGS UNIT: [id number] ADM DATE: 02/24/18 AGE: 77 : 38 SEX: M ROOM/BED: D.2105 AUTHOR: GEORGIA HOOD PHYSICIAN: REFERRING PHYSICIAN: DAWIT SOTO MD DATE OF SERVICE: 03/15/18 Discharge Plan Patient Name: OKSANA JENNINGS Facility: [facility]:[place] : 1940 Planned Disposition: Assisted Facility Anticipated Discharge Date: 03/16/18 Discharge Date: Expected LOS: 20 Initial Reviewer: [id number] Initial Review Date: 02/24/2018 Generated: 03/15/18 3:52 pm Comments DCP- Discharge Planning Updated by [email or web address]: Walker Horton on 03/15/18 1:[address] Patient Name: OKSANA JENNINGS Encounter No: [id number] : 1940 Primary Insurance: MEDICARE A & B Anticipated DC Date: 03-16-2018 Planned Disposition: Assisted Facility External Planned Provider: [facility], MEDICARE REHAB BED DCP follow-up note: CM SPOKE TO LATIA OF [facility], THEY WILL ACCEPT PT AND WILL POLICE ARTIST FOR REHAB TOMORROW MORNING. CM NOTIFIED CAMMIE PATRICIA OF [facility]. CM NOTIFIED PT AND SPOUSE IN ROOM. CM NOTIFIED GRANT COORDINATOR NURSE. FOR DISCHARGE 03-16-18, FAX DISCHARGE INSTRUCTIONS TO [facility] AT [phone]. NURSE REPORT TO BE CALLED TO [facility] AT [phone]. PT TO TRANSPORT [facility]. Walker Horton CASE MANAGEMENT DCP- Discharge Planning Updated by [id number]: Walker Horton on 03/15/18 10:[address] Patient Name: OKSANA JENNINGS Encounter No: [id number] : 1940 Primary Insurance: MEDICARE A & B Anticipated DC Date: 03-15-2018 Planned Disposition: Assisted Facility External Planned Provider: [facility], MEDICARE REHAB DATE DCP follow-up note: CM RECEIVED MESSAGE FROM [facility]OL[facility] FIERRO, QUESTIONS ABOUT CHEMOTHERAPY, URINE CULTURE, BIPAP SETTINGS, WOUNDS AND IV MEDICATIONS. CM SPOKE TO PT'S SPOUSE WHO REPORTS PT IS NOT AND HAS NOT RECEIVED CHEMO THERAPY. CM REVIEWED CHART WITH INDICATED URINE CULTURE AT [facility] February THAT WAS POSITIVE (TREATED WITH ANTIBIOTICS HERE), PT NOT ON BIPAP, PT HAS REDNESS ON COXXYX AND WILL BE ON NO IV MEDICATIONS AT [place]. CM NOTIFIED LATIA VIA PHONE, , FAXED SUPPORTING DOCUMENTS TO [facility] VIA LATIA AT [phone]. CM WAITING ADMISSION DETERMINATION FROM [facility]. SARA Gomez DCP- Discharge Planning Updated by [id number]: Walker Horton on 03/14/18 3:[address] Patient Name: OKSANA JENNINGS Encounter No: [id number] : 1940 Primary Insurance: MEDICARE A & B Anticipated DC Date: 03-15-2018 Planned Disposition: Assisted Facility External Planned Provider: [facility] MEDICARE REHAB BED DCP follow-up note: CM RECEIVED CALL FROM JACKSON OF INPATIENT REHAB, THEY WILL NOT ACCEPT PT HE IS TOO LOW FUNCTIONING, SUGGESTED HALF-WAY REHAB AND PT COULD REQUEST REEVALUATION BY INPATIENT REHAB WHEN HE IS ABLE TO PARTICIPATE FULLY WITH INPATIENT REHAB SERVICES. CM SPOKE TO PT'S SPOUSE VIA PHONE, CHOICE PREVIOUSLY COMPLETED FOR [facility], SPOUSE IN AGREEMENT. CM SPOKE TO PT IN ROOM, NOTIFIED OF ABOVE, PT IN AGREEMENT WITH REFERRAL TO REHAB AT [facility]. CM NOTIFIED LATIA, , OF REFERRAL FOR REHAB AT [facility] IN [place]. CM FAXED REFERRAL TO [facility] VIA LATIA AT [phone]. CM WAITING ADMISSION DETERMINATION FROM [facility] FOR RE[facility]. SARA Gomez DCP- Discharge Planning Updated by [id number]: Walker Horton on 03/14/18 10:[address] Patient Name: OKSANA JENNINGS Encounter No: [id number] : 1940 Primary Insurance: MEDICARE A & B Anticipated DC Date: 03-02-2018 Planned Disposition: Inpatient Rehab External Planned Provider: [facility] DCP follow-up note: CM RECEIVED DISCHARGE ORDER, SPOKE TO PT IN ROOM WHO IS WILLING FOR DISCHARGE TO REHAB AT [facility]. IMPORTANT MESSAGE FROM MEDICARE PROVIDED AND EXPLAINED. CM SPOKE TO PT'S SPOUSE WHO IS ALSO IN AGREEMENT WITH REHAB AT [place]. SECOND CHOICE REMAINS [facility]. RN CM HOUSE NOTIFIED JACKSON OF INPATIENT REHAB AT [place] WHO INFORMED CM HOUSE THAT PT DOES NOT HAVE AN OUTPATIENT DIALYSIS UNIT AND THAT WAS THE PROBLEM WITH PT GETTING INTO REHAB IN [place]. CM HOUSE SPOKE TO JOSEPH OF [facility] WHO ADVISED PT HAS DIALYSIS UNIT ASSIGNMENT IN [place] CHRONIC DIALYSIS PATIENT. CM CALLED JACKSON OF INPATIENT REHAB AND ADVISED HER THAT CM HAD NOT SENT ANY REFERRALS TO [facility] PT AND FAMILY FIRST CHOICE WAS REHAB AT [place]. JACKSON OF INPATIENT REHAB ADVISED C[facility]STY HOUSE THAT THERAPY NEEDS TO WORK WITH PT TO SHOW HE GOING TO WORK WITH THERAPY SERVICES. HOSPITAL ACUTE REHAB SERVICES NOTIFIED. CM WAITING PROGRESSION WITH THERAPY AND ADMISSION DETERMINATION FROM [facility]. Vat House Supervisor: Walker Horton DCP- Discharge Planning Updated by [id number]: Walker Horton on 03/03/18 10:[address] Patient Name: OKSANA JENNINGS Encounter No: [id number] : 1940 Primary Insurance: MEDICARE A & B Anticipated DC Date: 03-02-2018 Planned Disposition: Inpatient Rehab External Planned Provider: [facility] DCP follow-up note: CM RECEIVED CALL FROM PT'S SPOUSE WHO HAS MET WITH INPATIENT REHAB SCREENERS WHO INFORMED HER THAT PT WILL AT LEAST NEED TO BE ABLE TO SIT UP ON THE SIDE OF BED WITHOUT BEING HELD UP TO BE ABLE TO COME TO INPATIENT REHAB; PT'S SPOUSE ALSO STATES THAT SHE WAS TOLD THAT PT IS SUPPOSED TO BE GETTING THERAPY TWICE DAILY WHILE IN THE HOSPITAL AND SHE IS DOUBTFUL THIS IS TAKING PLACE. PT'S SPOUSE INFORMED CM THAT IF PT IS NOT ABLE TO PROGRESS AND ADMIT TO INPATIENT REHAB AT [place], THEIR HALF-WAY CHOICE WILL BE [facility] IN [place]. CHOICE LETTER COMPLETED. CM CALLED DEANNA WITH THERAPY, NOTIFIED OF ABOVE, WITH FAMILY REQUEST FOR THERAPY TWICE PER DAY WITH GOAL OF RETURNING PT TO INPATIENT REHAB. CM WAITING MEDICAL STABILITY, PROGRESSION WITH THERAPY AND ADMISSION DETERMINATION FROM [facility]. Vat House Supervisor: Walker Horton DCP- Discharge Planning Updated by [id number]: Walker Horton on 03/02/18 12:[address] Patient Name: OKSANA JENNINGS Admission Status: Elective Accout number: [id number] Admission Date: 02-24-2018 : 1940 Admission Diagnosis:PNEUMONITIS DUE TO INHALATION OF FOOD AND VOMIT Attending: Dawit Soto Current LOS: 6 Anticipated DC Date: 03-02-2018 Planned Disposition: Inpatient Rehab Primary Insurance: MEDICARE A & B PLANNED EXTERNAL PROVIDER: [facility] Discharge Planning Comments: CM RECEIVED ORDER FOR INPATIENT REHAB PRESCREENING. CM MET WITH PT AND SPOUSE IN ROOM TO DISCUSS DISCHARGE PLANNING AND NEEDS. OKSANA Bean MICHAELA provided verbal consent to discuss current and ongoing needs with/in the presence of: COPOER, SPOUSE. PT REPORTS LIVING AT HOME INDEPENDENTLY WITH SPOUSE. PT HAS NO MEDICAL EQUIPMENT AND NO OUTSIDE SERVICES ASSISTING IN THE HOME. CM DISCUSSED AVAILABILITY OF HOME HEALTH, REHAB SERVICES AND MEDICAL EQUIPMENT. PT WOULD LIKE TO GO BACK TO REHAB HERE. PT REPORTS HE WAS IN REHAB AFTER DISCHARGE FROM [facility] AND HAD ANOTHER STROKE WHILE IN REHAB. PT REPORTS HIS SPOUSE WILL PICK HIM UP FOR DISCHARGE HOME. IMPORTANT MESSAGE FROM MEDICARE PROVIDED AND EXPLAINED. CM WAITING ADMISSION DETERMINATION FROM [facility]. V[facility] House Supervisor: Walker Horton DCPIA - Discharge Planning Initial Assessment Updated by [id number]: Walker Horton on 03/02/18 1:10 pm * Is the patient Alert and Oriented? Yes * How many steps to enter\exit or inside your home? RAMP * PCP ELIZABETH WILKINS * Pharmacy [facility] IN [place] OR [facility] MAIL [facility] * Preadmission Environment Home with Family * ADLs Independent * Equipment None * Other Equipment NO MEDICAL EQUIPMENT PROVIDER PREFERENCE * List name and contact numbers for known caregivers / representatives who currently or will assist patient after discharge: COOPER JENNINGS, SPOUSE, * Verbal permission to speak to the caregivers and representatives has been obtained from the patient. Yes * Community resources currently utilized None * Please name any agencies selected above. NONE * Additional services required to return to the preadmission environment? Yes * Can the patient safely return to the preadmission environment? Yes * Has this patient been hospitalized within the prior 30 days at any hospital? Yes Coverage Notice Reviewer: [id number] - Walker Horton Notice Issued Date-Time: 03/03/2018 10:50 Notice Type: Patient Choice Letter Notice Delivered To: Family Member Relationship to Patient: Spouse Case Repairer Name: COOPER JENNINGS Delivery Method: HAND - Hand Delivered Hoda Days: Prior Verbal Notification: Recipient Understood Notice: Yes Recipient Signature: Yes Med Rec Note Co-signed by Attending: Coverage Notice Comment: Reviewer: [id number] Horton Notice Issued Date-Time: 03/02/2018 13:00 Notice Type: IM Discharge Notice Notice Delivered To: Family Member Relationship to Patient: Spouse Case Repairer Name: COOPER JENNINGS Delivery Method: HAND - Hand Delivered Hoda Days: Prior Verbal Notification: Recipient Understood Notice: Yes Recipient Signature: Yes Med Rec Note Co-signed by Attending: Coverage Notice Comment: Reviewer: NIMESH Horton Notice Issued Date-Time: 03/14/2018 9:00 Notice Type: IM Discharge Notice Notice Delivered To: Patient Relationship to Patient: Case Repairer Name: Delivery Method: HAND - Hand Delivered Hoda Days: Prior Verbal Notification: Recipient Understood Notice: Yes Recipient Signature: Med Rec Note Co-signed by Attending: Coverage Notice Comment: Last DP export: 03/15/18 1:43 Patient Name: OKSANA JENNINGS Page 21320 at 1453 All edits/amendments must be made on the electronic document DICTATION DATE: 03/15/181451 HARNESS RIGGER: MELISSA 03/15/18 145 RPT#: [id number] MS DATE: STATUS: ADM IN [facility] [address] [place] [address] END OF REPORT
--- NOTE | ~2018-02-24 | MORECARE ---
CASE MANAGEMENT DISCHARGE SUMMARY PATIENT: OKSANA JENNINGS UNIT: [id number] ADM DATE: 02/24/18 AGE: 77 : 38 SEX: M ROOM/BED: D.2107 AUTHOR: GEORGIA HOOD PHYSICIAN: REFERRING PHYSICIAN: DAWIT SOTO MD DATE OF SERVICE: 03/16/18 Discharge Plan Patient Name: OKSANA JENNINGS Facility: [facility]:[place] : 1940 Planned Disposition: Custodial Facility Anticipated Discharge Date: 03/16/18 Discharge Date: Expected LOS: 20 Initial Reviewer: [email or web address] Initial Review Date: 02/24/2018 Generated: 03/16/18 10:29 am Comments DCP- Discharge Planning Updated by [id number]: Walker Horton on 03/15/18 4:[address] Patient Name: OKSANA JENNINGS Encounter No: [id number] : 1940 Primary Insurance: MEDICARE A & B Anticipated DC Date: 03-16-2018 Planned Disposition: Custodial Facility External Planned Provider: [facility], MEDICARE REHAB BED DCP follow-up note: CM SPOKE TO LATIA OF [facility], THEY WILL ACCEPT PT AND WILL SUPERVISOR ROVING DEPARTMENT FOR REHAB TOMORROW MORNING. CM NOTIFIED CAMMIE PATRICIA OF [facility]. CM NOTIFIED PT AND SPOUSE IN ROOM. CM NOTIFIED PSYCHIATRIC ASSISTANT NURSE. FOR DISCHARGE 03-16-18, FAX DISCHARGE INSTRUCTIONS TO [facility] AT [phone]. NURSE REPORT TO BE CALLED TO [facility] AT [phone]. PT TO TRANSPORT [facility]IA [facility]. Walker Horton, CASE MANAGEMENT Appended by Walker Horton on 03/15/2018 17:26 ASSOCIATE MUSIC PROFESSOR: CM SPOKE TO JOSEPH OF PATIENT, VERIFIED PT'S HOME UNIT DIALYSIS SCHEDULE IN [place] OF MWF, 1130AM. FOR DISCHARGE 03-16-18, FAX DISCHARGE INSTRUCTIONS TO [facility] AT [phone]. NURSE REPORT TO BE CALLED TO [facility] AT [phone]. PT TO TRANSPORT [facility]. Walker Horton CASE MANAGEMENT DCP- Discharge Planning Updated by [id number]: Walker Horton on 03/15/18 10:[address] Patient Name: OKSANA JENNINGS Encounter No: [id number] : 1940 Primary Insurance: MEDICARE A & B Anticipated DC Date: 03-15-2018 Planned Disposition: Custodial Facility External Planned Provider: [facility], MEDICARE REHAB DATE DCP follow-up note: CM RECEIVED MESSAGE FROM [facility], QUESTIONS ABOUT CHEMOTHERAPY, URINE CULTURE, BIPAP SETTINGS, WOUNDS AND IV MEDICATIONS. CM SPOKE TO PT'S SPOUSE WHO REPORTS PT IS NOT AND HAS NOT RECEIVED CHEMO THERAPY. CM REVIEWED CHART WITH INDICATED URINE CULTURE AT [facility] February THAT WAS POSITIVE (TREATED WITH ANTIBIOTICS HERE), PT NOT ON BIPAP, PT HAS REDNESS ON COXXYX AND WILL BE ON NO IV MEDICATIONS AT [place]. CM NOTIFIED LATIA VIA PHONE, , FAXED SUPPORTING DOCUMENTS TO [facility] VIA LATIA AT [phone]. CM WAITING ADMISSION DETERMINATION FROM [facility] FOR REHAB SERVICES. SARA Gomez DCP- Discharge Planning Updated by [id number]: Walker Horton on 03/14/18 3:[address] Patient Name: OKSANA JENNINGS Encounter No: [id number] : 1940 Primary Insurance: MEDICARE A & B Anticipated DC Date: 03-15-2018 Planned Disposition: Custodial Facility External Planned Provider: [facility] MEDICARE REHAB BED DCP follow-up note: CM RECEIVED CALL FROM JACKSON OF INPATIENT REHAB, THEY WILL NOT ACCEPT PT HE IS TOO LOW FUNCTIONING, SUGGESTED FDC REHAB AND PT COULD REQUEST REEVALUATION BY INPATIENT REHAB WHEN HE IS ABLE TO PARTICIPATE FULLY WITH INPATIENT REHAB SERVICES. CM SPOKE TO PT'S SPOUSE VIA PHONE, CHOICE PREVIOUSLY COMPLETED FOR [facility], SPOUSE IN AGREEMENT. CM SPOKE TO PT IN ROOM, NOTIFIED OF ABOVE, PT IN AGREEMENT WITH REFERRAL TO REHAB AT [facility]. CM NOTIFIED LATIA, , OF REFERRAL FOR REHAB AT [facility] IN [place]. CM FAXED REFERRAL TO [facility] VIA LATIA AT [phone]. CM WAITING ADMISSION DETERMINATION FROM [facility] FOR RE[facility]. SARA Gomez DCP- Discharge Planning Updated by [id number]: Walker Horton on 03/14/18 10:[address] Patient Name: OKSANA JENNINGS Encounter No: [id number] : 1940 Primary Insurance: MEDICARE A & B Anticipated DC Date: 03-02-2018 Planned Disposition: Inpatient Rehab External Planned Provider: [facility] DCP follow-up note: CM RECEIVED DISCHARGE ORDER, SPOKE TO PT IN ROOM WHO IS WILLING FOR DISCHARGE TO REHAB AT [facility]. IMPORTANT MESSAGE FROM MEDICARE PROVIDED AND EXPLAINED. CM SPOKE TO PT'S SPOUSE WHO IS ALSO IN AGREEMENT WITH REHAB AT [place]. SECOND CHOICE REMAINS [facility]. RN CRISTY HOUSE NOTIFIED JACKSON OF INPATIENT REHAB AT [place] WHO INFORMED CRISTY HOUSE THAT PT DOES NOT HAVE AN OUTPATIENT DIALYSIS UNIT AND THAT WAS THE PROBLEM WITH PT GETTING INTO REHAB IN [place]. CRISTY HOUSE SPOKE TO JOSEPH OF [facility] WHO ADVISED PT HAS DIALYSIS UNIT ASSIGNMENT IN [place] CHRONIC DIALYSIS PATIENT. CM CALLED JACKSON OF INPATIENT REHAB AND ADVISED HER THAT CM HAD NOT SENT ANY REFERRALS TO [facility] PT AND FAMILY FIRST CHOICE WAS REHAB AT [place]. JACKSON OF INPATIENT REHAB ADVISED [facility]Y HOUSE THAT THERAPY NEEDS TO WORK WITH PT TO SHOW HE GOING TO WORK WITH THERAPY SERVICES. HOSPITAL ACUTE REHAB SERVICES NOTIFIED. CM WAITING PROGRESSION WITH THERAPY AND ADMISSION DETERMINATION FROM [facility] IN[facility]IENT RE[facility]. Team Coordinator: Walker Horton DCP- Discharge Planning Updated by [id number]: Walker Horton on 03/03/18 10:[address] Patient Name: OKSANA JENNINGS Encounter No: [id number] : 1940 Primary Insurance: MEDICARE A & B Anticipated DC Date: 03-02-2018 Planned Disposition: Inpatient Rehab External Planned Provider: [facility] INPATIENT REH[facility] DCP follow-up note: CM RECEIVED CALL FROM PT'S SPOUSE WHO HAS MET WITH INPATIENT REHAB SCREENERS WHO INFORMED HER THAT PT WILL AT LEAST NEED TO BE ABLE TO SIT UP ON THE SIDE OF BED WITHOUT BEING HELD UP TO BE ABLE TO COME TO INPATIENT REHAB; PT'S SPOUSE ALSO STATES THAT SHE WAS TOLD THAT PT IS SUPPOSED TO BE GETTING THERAPY TWICE DAILY WHILE IN THE HOSPITAL AND SHE IS DOUBTFUL THIS IS TAKING PLACE. PT'S SPOUSE INFORMED CM THAT IF PT IS NOT ABLE TO PROGRESS AND ADMIT TO INPATIENT REHAB AT [place], THEIR FDC CHOICE WILL BE [facility] IN [place]. CHOICE LETTER COMPLETED. CM CALLED DEANNA WITH THERAPY, NOTIFIED OF ABOVE, WITH FAMILY REQUEST FOR THERAPY TWICE PER DAY WITH GOAL OF RETURNING PT TO INPATIENT REHAB. CM WAITING MEDICAL STABILITY, PROGRESSION WITH THERAPY AND ADMISSION DETERMINATION FROM [facility]PAT[facility] RE[facility]. Team Coordinator: Walker Horton DCP- Discharge Planning Updated by [id number]: Walker Horton on 03/02/18 12:[address] Patient Name: OKSANA JENNINGS Admission Status: Elective Accout number: [id number] Admission Date: 02-24-2018 : 1940 Admission Diagnosis:PNEUMONITIS DUE TO INHALATION OF FOOD AND VOMIT Attending: Dawit Soto Current LOS: 6 Anticipated DC Date: 03-02-2018 Planned Disposition: Inpatient Rehab Primary Insurance: MEDICARE A & B PLANNED EXTERNAL PROVIDER: [facility] INPATIENT REHAB Discharge Planning Comments: CM RECEIVED ORDER FOR INPATIENT REHAB PRESCREENING. CM MET WITH PT AND SPOUSE IN ROOM TO DISCUSS DISCHARGE PLANNING AND NEEDS. OKSANA JENNINGS provided verbal consent to discuss current and ongoing needs with/in the presence of: COOPER, SPOUSE. PT REPORTS LIVING AT HOME INDEPENDENTLY WITH SPOUSE. PT HAS NO MEDICAL EQUIPMENT AND NO OUTSIDE SERVICES ASSISTING IN THE HOME. CM DISCUSSED AVAILABILITY OF HOME HEALTH, REHAB SERVICES AND MEDICAL EQUIPMENT. PT WOULD LIKE TO GO BACK TO REHAB HERE. PT REPORTS HE WAS IN REHAB AFTER DISCHARGE FROM [facility] AND HAD ANOTHER STROKE WHILE IN REHAB. PT REPORTS HIS SPOUSE WILL PICK HIM UP FOR DISCHARGE HOME. IMPORTANT MESSAGE FROM MEDICARE PROVIDED AND EXPLAINED. CM WAITING ADMISSION DETERMINATION FROM [facility] INPATIENT REH[facility]. Team Coordinator: Walker Horton DCPIA - Discharge Planning Initial Assessment Updated by [id number]: Walker Horton on 03/02/18 1:10 pm * Is the patient Alert and Oriented? Yes * How many steps to enter\exit or inside your home? RAMP * PCP ELIZABETH WILKINS * Pharmacy [facility] IN [place] OR [facility] MAIL [facility] * Preadmission Environment Home with Family * ADLs Independent * Equipment None * Other Equipment NO MEDICAL EQUIPMENT PROVIDER PREFERENCE * List name and contact numbers for known caregivers / representatives who currently or will assist patient after discharge: COOPER FERNÁNDEZAK, SPOUSE, * Verbal permission to speak to the caregivers and representatives has been obtained from the patient. Yes * Community resources currently utilized None * Please name any agencies selected above. NONE * Additional services required to return to the preadmission environment? Yes * Can the patient safely return to the preadmission environment? Yes * Has this patient been hospitalized within the prior 30 days at any hospital? Yes Coverage Notice Reviewer: NIMESH Horton Notice Issued Date-Time: 03/02/2018 13:00 Notice Type: IM Discharge Notice Notice Delivered To: Family Member Relationship to Patient: Spouse [employer] Attendant Name: COOPER JENNINGS Delivery Method: HAND - Hand Delivered Hoda Days: Prior Verbal Notification: Recipient Understood Notice: Yes Recipient Signature: Yes Med Rec Note Co-signed by Attending: Coverage Notice Comment: Reviewer: NIMESH Horton Notice Issued Date-Time: 03/03/2018 10:50 Notice Type: Patient Choice Letter Notice Delivered To: Family Member Relationship to Patient: Spouse [employer] Attendant Name: COOPER JENNINGS Delivery Method: HAND - Hand Delivered Hoda Days: Prior Verbal Notification: Recipient Understood Notice: Yes Recipient Signature: Yes Med Rec Note Co-signed by Attending: Coverage Notice Comment: Reviewer: NIMESH Horton Notice Issued Date-Time: 03/14/2018 9:00 Notice Type: IM Discharge Notice Notice Delivered To: Patient Relationship to Patient: [employer] Attendant Name: Delivery Method: HAND - Hand Delivered Hoda Days: Prior Verbal Notification: Recipient Understood Notice: Yes Recipient Signature: Med Rec Note Co-signed by Attending: Coverage Notice Comment: Last DP export: 03/15/18 4:34 Patient Name: OKSANA JENNINGS Page 39272 at 0929 All edits/amendments must be made on the electronic document DICTATION DATE: 03/16/18927 OVERLOCK WAISTLINE JOINER: MELISSA 03/16/18927 RPT#: [id number] DC DATE: STATUS: ADM IN [facility] [address] [place] [address] END OF REPORT
--- NOTE | ~2018-02-24 | MORECARE ---
CASE MANAGEMENT DISCHARGE SUMMARY PATIENT: OKSANA JENNINGS UNIT: [id number] ADM DATE: 02/24/18 AGE: 77 : 38 SEX: M ROOM/BED: D.2301 AUTHOR: GEORGIA HOOD PHYSICIAN: REFERRING PHYSICIAN: DAWIT WAHL MD DATE OF SERVICE: 02/27/18 Discharge Plan Patient Name: OKSANA JENNINGS Facility: [facility]:[place] : 1940 Planned Disposition: Anticipated Discharge Date: Discharge Date: Expected LOS: Initial Reviewer: [id number] Initial Review Date: 02/24/2018 Generated: 02/27/18 8:31 pm Patient Name: OKSANA JENNINGS Page 13995 at 1932 All edits/amendments must be made on the electronic document DICTATION DATE: 02/27/181930 WOOL SUPPLIER: MELISSA 02/27/181930 RPT#: [id number] DC DATE: STATUS: ADM IN [facility] [address] [place] [address] END OF REPORT
--- NOTE | ~2018-02-24 | MORECARE ---
CASE MANAGEMENT DISCHARGE SUMMARY PATIENT: OKSANA JENNINGS UNIT: [id number] ADM DATE: 02/24/18 AGE: 77 : 38 SEX: M ROOM/BED: D.210 AUTHOR: GEORGIA HOOD PHYSICIAN: REFERRING PHYSICIAN: DAWIT SOTO MD DATE OF SERVICE: 03/14/18 Discharge Plan Patient Name: OKSANA JENNINGS Facility: [facility]:[place] : 1940 Planned Disposition: Group Home Facility Anticipated Discharge Date: 03/15/18 Discharge Date: Expected LOS: 19 Initial Reviewer: [id number] Initial Review Date: 02/24/2018 Generated: 03/14/18 5:59 pm Comments DCP- Discharge Planning Updated by [id number]: Walker Horton on 03/14/18 3:[address] Patient Name: OKSANA JENNINGS Encounter No: [id number] : 1940 Primary Insurance: MEDICARE A & B Anticipated DC Date: 03-15-2018 Planned Disposition: Group Home Facility External Planned Provider: [facility], MEDICARE REHAB BED DCP follow-up note: CM RECEIVED CALL FROM [facility] OF INPATIENT REH[facility], THEY WILL NOT ACCEPT PT HE IS TOO LOW FUNCTIONING, SUGGESTED [facility] AND PT COULD REQUEST REEVALUATION BY INPATIENT REHAB WHEN HE IS ABLE TO PARTICIPATE FULLY WITH INPATIENT REHAB SERVICES. CM SPOKE TO PT'S SPOUSE VIA PHONE, CHOICE PREVIOUSLY COMPLETED FOR [facility], SPOUSE IN AGREEMENT. CM SPOKE TO PT IN ROOM, NOTIFIED OF ABOVE, PT IN AGREEMENT WITH REFERRAL TO REHAB AT [facility]. CM NOTIFIED LATIA, , OF REFERRAL FOR REHAB AT [facility] IN [place]. CM FAXED REFERRAL TO [facility] VIA LATIA AT [phone]. CM WAITING ADMISSION DETERMINATION FROM [facility]. SARA Gomez DCP- Discharge Planning Updated by [id number]: Walker Horton on 03/14/18 10:[address] Patient Name: OKSANA JENNINGS Encounter No: [id number] : 1940 Primary Insurance: MEDICARE A & B Anticipated DC Date: 03-02-2018 Planned Disposition: Inpatient Rehab External Planned Provider: [facility] IN[facility]IENT [facility] DCP follow-up note: CM RECEIVED DISCHARGE ORDER, SPOKE TO PT IN ROOM WHO IS WILLING FOR DISCHARGE TO REHAB AT [facility]. IMPORTANT MESSAGE FROM MEDICARE PROVIDED AND EXPLAINED. CM SPOKE TO PT'S SPOUSE WHO IS ALSO IN AGREEMENT WITH REHAB AT [place]. SECOND CHOICE REMAINS [facility]. RN CRISTY HOUSE NOTIFIED [facility] OF INPATIENT REH[facility] AT [place] WHO INFORMED CRISTY HOUSE THAT PT DOES NOT HAVE AN OUTPATIENT DIALYSIS UNIT AND THAT WAS THE PROBLEM WITH PT GETTING INTO REHAB IN [place]. CRISTY HOUSE SPOKE TO JOSEPH OF [facility] WHO ADVISED PT HAS DIALYSIS UNIT ASSIGNMENT IN [place] CHRONIC DIALYSIS PATIENT. CM CALLED [facility] OF INPATIENT REHAB AND ADVISED HER THAT CM HAD NOT SENT ANY REFERRALS TO [facility] PT AND FAMILY FIRST CHOICE WAS REHAB AT [place]. [facility] OF INPATIENT REH[facility] ADVISED CRISTY PRADO THAT THERAPY NEEDS TO WORK WITH PT TO SHOW HE GOING TO WORK WITH THERAPY SERVICES. HOSPITAL ACUTE REHAB SERVICES NOTIFIED. CM WAITING PROGRESSION WITH THERAPY AND ADMISSION DETERMINATION FROM [facility] INPATIENT RE[facility]. Process Server: Walker Horton DCP- Discharge Planning Updated by [id number]: Walker Horton on 03/03/18 10:[address] Patient Name: OKSANA JENNINGS Encounter No: [id number] : 1940 Primary Insurance: MEDICARE A & B Anticipated DC Date: 03-02-2018 Planned Disposition: Inpatient Rehab External Planned Provider: [facility] DCP follow-up note: CM RECEIVED CALL FROM PT'S SPOUSE WHO HAS MET WITH INPATIENT REHAB SCREENERS WHO INFORMED HER THAT PT WILL AT LEAST NEED TO BE ABLE TO SIT UP ON THE SIDE OF BED WITHOUT BEING HELD UP TO BE ABLE TO COME TO INPATIENT REHAB; PT'S SPOUSE ALSO STATES THAT SHE WAS TOLD THAT PT IS SUPPOSED TO BE GETTING THERAPY TWICE DAILY WHILE IN THE HOSPITAL AND SHE IS DOUBTFUL THIS IS TAKING PLACE. PT'S SPOUSE INFORMED CM THAT IF PT IS NOT ABLE TO PROGRESS AND ADMIT TO INPATIENT REHAB AT [place], THEIR [facility] CHOICE WILL BE [facility] IN [place]. CHOICE LETTER COMPLETED. CM CALLED DEANNA WITH THERAPY, NOTIFIED OF ABOVE, WITH FAMILY REQUEST FOR THERAPY TWICE PER DAY WITH GOAL OF RETURNING PT TO INPATIENT REHAB. CM WAITING MEDICAL STABILITY, PROGRESSION WITH THERAPY AND ADMISSION DETERMINATION FROM [facility] IN[facility]. Process Server: Walker Horton DCP- Discharge Planning Updated by [id number]: Walker Horton on 03/02/18 12:[address] Patient Name: OKSANA JENNINGS Admission Status: Elective Accout number: [id number] Admission Date: 02-24-2018 : 1940 Admission Diagnosis:PNEUMONITIS DUE TO INHALATION OF FOOD AND VOMIT Attending: Dawit Soto Current LOS: 6 Anticipated DC Date: 03-02-2018 Planned Disposition: Inpatient Rehab Primary Insurance: MEDICARE A & B PLANNED EXTERNAL PROVIDER: [facility] INPATIENT [facility] Discharge Planning Comments: CM RECEIVED ORDER FOR INPATIENT REHAB PRESCREENING. CM MET WITH PT AND SPOUSE IN ROOM TO DISCUSS DISCHARGE PLANNING AND NEEDS. OKSANA JENNINGS provided verbal consent to discuss current and ongoing needs with/in the presence of: LUCIANA GAMBOA. PT REPORTS LIVING AT HOME INDEPENDENTLY WITH SPOUSE. PT HAS NO MEDICAL EQUIPMENT AND NO OUTSIDE SERVICES ASSISTING IN THE HOME. CM DISCUSSED AVAILABILITY OF HOME HEALTH, REHAB SERVICES AND MEDICAL EQUIPMENT. PT WOULD LIKE TO GO BACK TO REHAB HERE. 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 PT REPORTS HIS SPOUSE WILL PICK HIM UP FOR DISCHARGE HOME. IMPORTANT MESSAGE FROM MEDICARE PROVIDED AND EXPLAINED. CM WAITING ADMISSION DETERMINATION FROM [facility] INPATIENT RE[facility]. Process Server: Walker Horton DCPIA - Discharge Planning Initial Assessment Updated by [id number]: Walker Horton on 03/02/18 1:10 pm * Is the patient Alert and Oriented? Yes * How many steps to enter\exit or inside your home? RAMP * PCP ELIZABETH WILKINS * Pharmacy [facility] [place] OR [facility] MA[facility] * Preadmission Environment Home with Family * ADLs Independent * Equipment None * Other Equipment NO MEDICAL EQUIPMENT PROVIDER PREFERENCE * List name and contact numbers for known caregivers / representatives who currently or will assist patient after discharge: COOPER LAMCZAK, SPOUSE, * Verbal permission to speak to the caregivers and representatives has been obtained from the patient. Yes * Community resources currently utilized None * Please name any agencies selected above. NONE * Additional services required to return to the preadmission environment? Yes * Can the patient safely return to the preadmission environment? Yes * Has this patient been hospitalized within the prior 30 days at any hospital? Yes Coverage Notice Reviewer: NIMESH Horton Notice Issued Date-Time: 03/03/2018 10:50 Notice Type: Patient Choice Letter Notice Delivered To: Family Member Relationship to Patient: Spouse Decaler Name: COOPER JENNINGS Delivery Method: HAND - Hand Delivered Hoda Days: Prior Verbal Notification: Recipient Understood Notice: Yes Recipient Signature: Yes Med Rec Note Co-signed by Attending: Coverage Notice Comment: Reviewer: NIMESH Horton Notice Issued Date-Time: 03/02/2018 13:00 Notice Type: IM Discharge Notice Notice Delivered To: Family Member Relationship to Patient: Spouse Decaler Name: COOPER JENNINGS Delivery Method: HAND - Hand Delivered Hoda Days: Prior Verbal Notification: Recipient Understood Notice: Yes Recipient Signature: Yes Med Rec Note Co-signed by Attending: Coverage Notice Comment: Reviewer: NIMESH Horton Notice Issued Date-Time: 03/14/2018 9:00 Notice Type: IM Discharge Notice Notice Delivered To: Patient Relationship to Patient: Decaler Name: Delivery Method: HAND - Hand Delivered Hoda Days: Prior Verbal Notification: Recipient Understood Notice: Yes Recipient Signature: Med Rec Note Co-signed by Attending: Coverage Notice Comment: Last DP export: 03/14/18 3:49 Patient Name: OKSANA JENNINGS Page 01245 at 1659 All edits/amendments must be made on the electronic document DICTATION DATE: 03/14/181657 [employer] TRUCK DRIVER: MELISSA 03/14/181657 RPT#: [id number] GA DATE: STATUS: ADM IN [facility] [address] [place] [address] END OF REPORT
--- NOTE | ~2018-02-24 | MORECARE ---
CASE MANAGEMENT DISCHARGE SUMMARY PATIENT: OKSANA JENNINGS UNIT: [id number] ADM DATE: 02/24/18 AGE: 77 : 38 SEX: M ROOM/BED: D.0631 AUTHOR: GEORGIA HOOD PHYSICIAN: REFERRING PHYSICIAN: DAWIT SOTO MD DATE OF SERVICE: 03/03/18 Discharge Plan Patient Name: OKSANA JENNINGS Facility: [facility]:[place] : 1940 Planned Disposition: Inpatient Rehab Anticipated Discharge Date: 03/02/18 Discharge Date: Expected LOS: 6 Initial Reviewer: [id number] Initial Review Date: 02/24/2018 Generated: 03/03/18 12:08 pm Comments DCP- Discharge Planning Updated by [id number]: Walker Horton on 03/03/18 10:[address] Patient Name: OKSANA JENNINGS Encounter No: [id number] : 1940 Primary Insurance: MEDICARE A & B Anticipated DC Date: 03-02-2018 Planned Disposition: Inpatient Rehab External Planned Provider: [facility] INPATIENT REH[facility] DCP follow-up note: CM RECEIVED CALL FROM PT'S SPOUSE WHO HAS MET WITH INPATIENT REHAB SCREENERS WHO INFORMED HER THAT PT WILL AT LEAST NEED TO BE ABLE TO SIT UP ON THE SIDE OF BED WITHOUT BEING HELD UP TO BE ABLE TO COME TO INPATIENT REHAB; PT'S SPOUSE ALSO STATES THAT SHE WAS TOLD THAT PT IS SUPPOSED TO BE GETTING THERAPY TWICE DAILY WHILE IN THE HOSPITAL AND SHE IS DOUBTFUL THIS IS TAKING PLACE. PT'S SPOUSE INFORMED CM THAT IF PT IS NOT ABLE TO PROGRESS AND ADMIT TO INPATIENT REHAB AT [place], THEIR CUSTODIAL CHOICE WILL BE [facility] IN [place]. CHOICE LETTER COMPLETED. CM CALLED DEANNA WITH THERAPY, NOTIFIED OF ABOVE, WITH FAMILY REQUEST FOR THERAPY TWICE PER DAY WITH GOAL OF RETURNING PT TO INPATIENT REHAB. CM WAITING MEDICAL STABILITY, PROGRESSION WITH THERAPY AND ADMISSION DETERMINATION FROM [facility] INPATIENT REHAB. Pulmonary Care Nurse: Walker Horton DCP- Discharge Planning Updated by [id number]: Walker Horton on 03/02/18 12:[address] Patient Name: OKSANA JENNINGS Admission Status: Elective Accout number: [id number] Admission Date: 02-24-2018 : 1940 Admission Diagnosis:PNEUMONITIS DUE TO INHALATION OF FOOD AND VOMIT Attending: Dawit Soto Current LOS: 6 Anticipated DC Date: 03-02-2018 Planned Disposition: Inpatient Rehab Primary Insurance: MEDICARE A & B PLANNED EXTERNAL PROVIDER: [facility] INPATIENT REHAB Discharge Planning Comments: CM RECEIVED ORDER FOR INPATIENT REHAB PRESCREENING. CM MET WITH PT AND SPOUSE IN ROOM TO DISCUSS DISCHARGE PLANNING AND NEEDS. OKSANA JENNINGS provided verbal consent to discuss current and ongoing needs with/in the presence of: COOPER, SPOUSE. PT REPORTS LIVING AT HOME INDEPENDENTLY WITH SPOUSE. PT HAS NO MEDICAL EQUIPMENT AND NO OUTSIDE SERVICES ASSISTING IN THE HOME. CM DISCUSSED AVAILABILITY OF HOME HEALTH, REHAB SERVICES AND MEDICAL EQUIPMENT. PT WOULD LIKE TO GO BACK TO REHAB HERE. 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 PT REPORTS HIS SPOUSE WILL PICK HIM UP FOR DISCHARGE HOME. IMPORTANT MESSAGE FROM MEDICARE PROVIDED AND EXPLAINED. CM WAITING ADMISSION DETERMINATION FROM [facility] INPATIENT REHAB. Pulmonary Care Nurse: Walker Horton DCPIA - Discharge Planning Initial Assessment Updated by [id number]: Walker Horton on 03/02/18 1:10 pm * Is the patient Alert and Oriented? Yes * How many steps to enter\exit or inside your home? RAMP * PCP ELIZABETH WILKINS * Pharmacy [facility] [place] [facility] MA[facility] * Preadmission Environment Home with Family * ADLs Independent * Equipment None * Other Equipment NO MEDICAL EQUIPMENT PROVIDER PREFERENCE * List name and contact numbers for known caregivers / representatives who currently or will assist patient after discharge: COOPER JENNINGS, SPOUSE, * Verbal permission to speak to the caregivers and representatives has been obtained from the patient. Yes * Community resources currently utilized None * Please name any agencies selected above. NONE * Additional services required to return to the preadmission environment? Yes * Can the patient safely return to the preadmission environment? Yes * Has this patient been hospitalized within the prior 30 days at any hospital? Yes Coverage Notice Reviewer: [id number] - Walker Horton Notice Issued Date-Time: 03/02/2018 13:00 Notice Type: IM Discharge Notice Notice Delivered To: Family Member Relationship to Patient: Spouse Radio Message Router Name: COOPER JENNINGS Delivery Method: HAND - Hand Delivered Hoda Days: Prior Verbal Notification: Recipient Understood Notice: Yes Recipient Signature: Yes Med Rec Note Co-signed by Attending: Coverage Notice Comment: Reviewer: [id number] - Walker Horton Notice Issued Date-Time: 03/03/2018 10:50 Notice Type: Patient Choice Letter Notice Delivered To: Family Member Relationship to Patient: Spouse Radio Message Router Name: COOPER JENNINGS Delivery Method: HAND - Hand Delivered Hoda Days: Prior Verbal Notification: Recipient Understood Notice: Yes Recipient Signature: Yes Med Rec Note Co-signed by Attending: Coverage Notice Comment: Last DP export: 03/02/18 12:21 p Patient Name: OKSANA JENNINGS Page 59900 at 1108 All edits/amendments must be made on the electronic document DICTATION DATE: 03/03/181107 SPONGE HOOKER: MELISSA 03/03/181107 RPT#: [id number] DC DATE: STATUS: ADM IN [facility] [address] [place] [address] END OF REPORT
--- NOTE | ~2018-02-24 | MORECARE ---
CASE MANAGEMENT DISCHARGE SUMMARY PATIENT: OKSANA JENNINGS UNIT: [id number] ADM DATE: 02/24/18 AGE: 77 : 38 SEX: M ROOM/BED: D.2104 AUTHOR: SANADOC PHYSICIAN: REFERRING PHYSICIAN: DAWIT SOTO MD DATE OF SERVICE: 03/15/18 Discharge Plan Patient Name: OKSANA JENNINGS Facility: [facility]:[place] : 1940 Planned Disposition: Chcf Facility Anticipated Discharge Date: 03/16/18 Discharge Date: Expected LOS: 20 Initial Reviewer: [id number] Initial Review Date: 02/24/2018 Generated: 03/15/18 3:43 pm Comments DCP- Discharge Planning Updated by [id number]: Walker Horton on 03/15/18 10:[address] Patient Name: OKSANA JENNINGS Encounter No: [id number] : 1940 Primary Insurance: MEDICARE A & B Anticipated DC Date: 03-15-2018 Planned Disposition: Chcf Facility External Planned Provider: [facility], MEDICARE REHAB DATE DCP follow-up note: CM RECEIVED MESSAGE FROM [facility], QUESTIONS ABOUT CHEMOTHERAPY, URINE CULTURE, BIPAP SETTINGS, WOUNDS AND IV MEDICATIONS. CM SPOKE TO PT'S SPOUSE WHO REPORTS PT IS NOT AND HAS NOT RECEIVED CHEMO THERAPY. CM REVIEWED CHART WITH INDICATED URINE CULTURE AT February THAT WAS POSITIVE (TREATED WITH ANTIBIOTICS HERE), PT NOT ON BIPAP, PT HAS REDNESS ON COXXYX AND WILL BE ON NO IV MEDICATIONS AT [facility]. CM NOTIFIED LATIA VIA PHONE, , FAXED SUPPORTING DOCUMENTS TO [facility] VIA LATIA AT [phone]. CM WAITING ADMISSION DETERMINATION FROM [facility]. SARA Gomez DCP- Discharge Planning Updated by [id number]: Walker Horton on 03/14/18 3:[address] Patient Name: OKSANA JENNINGS Encounter No: [id number] : 1940 Primary Insurance: MEDICARE A & B Anticipated DC Date: 03-15-2018 Planned Disposition: [facility] Facility External Planned Provider: [facility], MEDICARE REHAB BED DCP follow-up note: CM RECEIVED CALL FROM [facility], THEY WILL NOT ACCEPT PT HE IS TOO LOW FUNCTIONING, SUGGESTED HALF-WAY REHAB AND PT COULD REQUEST REEVALUATION BY INPATIENT REHAB WHEN HE IS ABLE TO PARTICIPATE FULLY WITH INPATIENT REHAB SERVICES. CM SPOKE TO PT'S SPOUSE VIA PHONE, CHOICE PREVIOUSLY COMPLETED FOR [facility], SPOUSE IN AGREEMENT. CM SPOKE TO PT IN ROOM, NOTIFIED OF ABOVE, PT IN AGREEMENT WITH REFERRAL TO REHAB AT [facility]. CM NOTIFIED LATIA, , OF REFERRAL FOR REHAB AT [facility] IN [place]. CM FAXED REFERRAL TO [facility] VIA LATIA AT [phone]. CM WAITING ADMISSION DETERMINATION FROM [facility]. Walker Horton, CASE MANAGEMENT DCP- Discharge Planning Updated by [id number]: Walker Horton on 03/14/18 10:[address] Patient Name: OKSANA JENNINGS Encounter No: [id number] : 1940 Primary Insurance: MEDICARE A & B Anticipated DC Date: 03-02-2018 Planned Disposition: Inpatient Rehab External Planned Provider: [facility] INPATIENT [facility] DCP follow-up note: CM RECEIVED DISCHARGE ORDER, SPOKE TO PT IN ROOM WHO IS WILLING FOR DISCHARGE TO REHAB AT [facility]. IMPORTANT MESSAGE FROM MEDICARE PROVIDED AND EXPLAINED. CM SPOKE TO PT'S SPOUSE WHO IS ALSO IN AGREEMENT WITH REHAB AT [place]. SECOND CHOICE REMAINS [facility]. RN CM HOUSE NOTIFIED [facility] OF INPATIENT REHAB AT [place] WHO INFORMED HOUSE THAT PT DOES NOT HAVE AN OUTPATIENT DIALYSIS UNIT AND THAT WAS THE PROBLEM WITH PT GETTING INTO REHAB IN [place]. CM HOUSE SPOKE TO JOSEPH OF [facility] WHO ADVISED PT HAS DIALYSIS UNIT ASSIGNMENT IN [place] CHRONIC DIALYSIS PATIENT. CM CALLED [facility] OF INPATIENT REHAB AND ADVISED HER THAT CM HAD NOT SENT ANY REFERRALS TO [facility] PT AND FAMILY FIRST CHOICE WAS REHAB AT [place]. [facility] OF INPATIENT REHAB ADVISED HOUSE THAT THERAPY NEEDS TO WORK WITH PT TO SHOW HE GOING TO WORK WITH THERAPY SERVICES. HOSPITAL ACUTE REHAB SERVICES NOTIFIED. CM WAITING PROGRESSION WITH THERAPY AND ADMISSION DETERMINATION FROM [facility] INPATIENT RE[facility]. Barrel Ribs Solderer: Walker Horton DCP- Discharge Planning Updated by [id number]: Walker Horotn on 03/03/18 10:[address] Patient Name: OKSANA JENNINGS Encounter No: [id number] : 1940 Primary Insurance: MEDICARE A & B Anticipated DC Date: 03-02-2018 Planned Disposition: Inpatient Rehab External Planned Provider: [facility]PAT[facility] DCP follow-up note: CM RECEIVED CALL FROM PT'S SPOUSE WHO HAS MET WITH INPATIENT REHAB SCREENERS WHO INFORMED HER THAT PT WILL AT LEAST NEED TO BE ABLE TO SIT UP ON THE SIDE OF BED WITHOUT BEING HELD UP TO BE ABLE TO COME TO INPATIENT REHAB; PT'S SPOUSE ALSO STATES THAT SHE WAS TOLD THAT PT IS SUPPOSED TO BE GETTING THERAPY TWICE DAILY WHILE IN THE HOSPITAL AND SHE IS DOUBTFUL THIS IS TAKING PLACE. PT'S SPOUSE INFORMED CM THAT IF PT IS NOT ABLE TO PROGRESS AND ADMIT TO INPATIENT REHAB AT [place], THEIR HALF-WAY CHOICE WILL BE [facility] IN [place]. CHOICE LETTER COMPLETED. CM CALLED DEANNA WITH THERAPY, NOTIFIED OF ABOVE, WITH FAMILY REQUEST FOR THERAPY TWICE PER DAY WITH GOAL OF RETURNING PT TO INPATIENT REHAB. CM WAITING MEDICAL STABILITY, PROGRESSION WITH THERAPY AND ADMISSION DETERMINATION FROM [facility]. Barrel Ribs Solderer: Walker Horton DCP- Discharge Planning Updated by [id number]: Walker Horton on 03/02/18 12:[address] Patient Name: OKSANA JENNINGS Admission Status: Elective Accout number: [id number] Admission Date: 02-24-2018 : 1940 Admission Diagnosis:PNEUMONITIS DUE TO INHALATION OF FOOD AND VOMIT Attending: Dawit Soto Current LOS: 6 Anticipated DC Date: 03-02-2018 Planned Disposition: Inpatient Rehab Primary Insurance: MEDICARE A & B PLANNED EXTERNAL PROVIDER: [facility] INPATIENT REH[facility] Discharge Planning Comments: CM RECEIVED ORDER FOR INPATIENT REHAB PRESCREENING. CM MET WITH PT AND SPOUSE IN ROOM TO DISCUSS DISCHARGE PLANNING AND NEEDS. OKSANA JENNINGS provided verbal consent to discuss current and ongoing needs with/in the presence of: COOPER, SPOUSE. PT REPORTS LIVING AT HOME INDEPENDENTLY WITH SPOUSE. PT HAS NO MEDICAL EQUIPMENT AND NO OUTSIDE SERVICES ASSISTING IN THE HOME. CM DISCUSSED AVAILABILITY OF HOME HEALTH, REHAB SERVICES AND MEDICAL EQUIPMENT. PT WOULD LIKE TO GO BACK TO REHAB HERE. 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 PT REPORTS HIS SPOUSE WILL PICK HIM UP FOR DISCHARGE HOME. IMPORTANT MESSAGE FROM MEDICARE PROVIDED AND EXPLAINED. CM WAITING ADMISSION DETERMINATION FROM [facility] INPAT[facility]. Barrel Ribs Solderer: Walker Horton DCPIA - Discharge Planning Initial Assessment Updated by [email or web address]: Walker Horton on 03/02/18 1:10 pm * Is the patient Alert and Oriented? Yes * How many steps to enter\exit or inside your home? RAMP * PCP ELIZABETH WILKINS * Pharmacy [facility] [place] OR [facility] MA[facility] * Preadmission Environment Home with Family * ADLs Independent * Equipment None * Other Equipment NO MEDICAL EQUIPMENT PROVIDER PREFERENCE * List name and contact numbers for known caregivers / representatives who currently or will assist patient after discharge: COOPER JENNINGS, SPOUSE, * Verbal permission to speak to the caregivers and representatives has been obtained from the patient. Yes * Community resources currently utilized None * Please name any agencies selected above. NONE * Additional services required to return to the preadmission environment? Yes * Can the patient safely return to the preadmission environment? Yes * Has this patient been hospitalized within the prior 30 days at any hospital? Yes Coverage Notice Reviewer: [id number] Horton Notice Issued Date-Time: 03/03/2018 10:50 Notice Type: Patient Choice Letter Notice Delivered To: Family Member Relationship to Patient: Spouse Photographic Processor Name: COOPER JENNINGS Delivery Method: HAND - Hand Delivered Hoda Days: Prior Verbal Notification: Recipient Understood Notice: Yes Recipient Signature: Yes Med Rec Note Co-signed by Attending: Coverage Notice Comment: Reviewer: [id number] Horton Notice Issued Date-Time: 03/02/2018 13:00 Notice Type: IM Discharge Notice Notice Delivered To: Family Member Relationship to Patient: Spouse Photographic Processor Name: COOPER JENNINGS Delivery Method: HAND - Hand Delivered Hoda Days: Prior Verbal Notification: Recipient Understood Notice: Yes Recipient Signature: Yes Med Rec Note Co-signed by Attending: Coverage Notice Comment: Reviewer: [id number] Horton Notice Issued Date-Time: 03/14/2018 9:00 Notice Type: IM Discharge Notice Notice Delivered To: Patient Relationship to Patient: Photographic Processor Name: Delivery Method: HAND - Hand Delivered Hoda Days: Prior Verbal Notification: Recipient Understood Notice: Yes Recipient Signature: Med Rec Note Co-signed by Attending: Coverage Notice Comment: Last DP export: 03/15/18 10:33 Patient Name: OKSANA JENNINGS Page [id number] at 1444 All edits/amendments must be made on the electronic document DICTATION DATE: 03/15/181442 COOK FAST FOOD: MELISSA 03/15/181442 RPT#: [id number] DC DATE: STATUS: ADM IN [facility] [address] [place] [address] END OF REPORT
--- NOTE | ~2018-02-24 | MORECARE ---
CASE MANAGEMENT DISCHARGE SUMMARY PATIENT: OKSANA JENNINGS UNIT: [id number] ADM DATE: 02/24/18 AGE: 77 : 38 SEX: M ROOM/BED: D.2104 AUTHOR: GEORGIA HOOD PHYSICIAN: REFERRING PHYSICIAN: DAWIT SOTO MD DATE OF SERVICE: 03/15/18 Discharge Plan Patient Name: OKSANA JENNINGS Facility: [facility]:[place] : 1940 Planned Disposition: [facility] Facility Anticipated Discharge Date: 03/16/18 Discharge Date: Expected LOS: 20 Initial Reviewer: [id number] Initial Review Date: 02/24/2018 Generated: 03/15/18 6:33 pm Comments DCP- Discharge Planning Updated by [id number]: Walker Horton on 03/15/18 4:[address] Patient Name: OKSANA JENNINGS Encounter No: [id number] : 1940 Primary Insurance: MEDICARE A & B Anticipated DC Date: 03-16-2018 Planned Disposition: [facility] Facility External Planned Provider: [facility], MEDICARE REHAB BED DCP follow-up note: CM SPOKE TO LATIA OF [facility], THEY WILL ACCEPT PT AND WILL COMMERCIAL PEST CONTROL TECHNICIAN FOR REHAB TOMORROW MORNING. CM NOTIFIED CAMMIE PATRICIA OF [facility]. CM NOTIFIED PT AND SPOUSE IN ROOM. CM NOTIFIED [employer]ERTER NURSE. FOR DISCHARGE 03-16-18, FAX DISCHARGE INSTRUCTIONS TO [facility] AT [phone]. NURSE REPORT TO BE CALLED TO [facility] AT [phone]. PT TO TRANSPORT VIA INTER[facility]AN. Walker Horton, CASE MANAGEMENT Appended by Walker Horton on 03/15/2018 17:26 MERCHANDISE EXAMINER: CM SPOKE TO JOSEPH OF PATIENT, VERIFIED PT'S HOME UNIT DIALYSIS SCHEDULE IN [place] OF MWF, 1130AM. FOR DISCHARGE 03-16-18, FAX DISCHARGE INSTRUCTIONS TO [facility] AT [phone]. NURSE REPORT TO BE CALLED TO [facility] AT [phone]. PT TO TRANSPORT VIA [facility]AN. Walker Horton CASE MANAGEMENT DCP- Discharge Planning Updated by [id number]: Walker Horton on 03/15/18 10:[address] Patient Name: OKSANA JENNINGS Encounter No: [id number] : 1940 Primary Insurance: MEDICARE A & B Anticipated DC Date: 03-15-2018 Planned Disposition: [facility] Facility External Planned Provider: [facility], MEDICARE REHAB DATE DCP follow-up note: CM RECEIVED MESSAGE FROM [facility], QUESTIONS ABOUT CHEMOTHERAPY, URINE CULTURE, BIPAP SETTINGS, WOUNDS AND IV MEDICATIONS. CM SPOKE TO PT'S SPOUSE WHO REPORTS PT IS NOT AND HAS NOT RECEIVED CHEMO THERAPY. CM REVIEWED CHART WITH INDICATED URINE CULTURE AT FIRST February THAT WAS POSITIVE (TREATED WITH ANTIBIOTICS HERE), PT NOT ON BIPAP, PT HAS REDNESS ON COXXYX AND WILL BE ON NO IV MEDICATIONS AT [facility]. CM NOTIFIED LATIA VIA PHONE, , FAXED SUPPORTING DOCUMENTS TO [facility] VIA LATIA AT [phone]. CM WAITING ADMISSION DETERMINATION FROM [facility]. SARA Gomez DCP- Discharge Planning Updated by [id number]: Walker Horton on 03/14/18 3:[address] Patient Name: OKSANA JENNINGS Encounter No: [id number] : 1940 Primary Insurance: MEDICARE A & B Anticipated DC Date: 03-15-2018 Planned Disposition: [facility] Facility External Planned Provider: [facility] BED DCP follow-up note: CM RECEIVED CALL FROM [facility] OF INPATIENT REHAB, THEY WILL NOT ACCEPT PT HE IS TOO LOW FUNCTIONING, SUGGESTED HALFWAY REHAB AND PT COULD REQUEST REEVALUATION BY INPATIENT REHAB WHEN HE IS ABLE TO PARTICIPATE FULLY WITH INPATIENT REHAB SERVICES. CM SPOKE TO PT'S SPOUSE VIA PHONE, CHOICE PREVIOUSLY COMPLETED FOR [facility], SPOUSE IN AGREEMENT. CM SPOKE TO PT IN ROOM, NOTIFIED OF ABOVE, PT IN AGREEMENT WITH REFERRAL TO REHAB AT [facility]. CM NOTIFIED LATIA, , OF REFERRAL FOR REHAB AT [facility] IN [place]. CM FAXED REFERRAL TO [facility] VIA LATIA AT [phone]. CM WAITING ADMISSION DETERMINATION FROM [facility]. SARA Gomez DCP- Discharge Planning Updated by [id number]: Walker Horton on 03/14/18 10:[address] Patient Name: OKSANA JENNINGS Encounter No: [id number] : 1940 Primary Insurance: MEDICARE A & B Anticipated DC Date: 03-02-2018 Planned Disposition: Inpatient Rehab External Planned Provider: [facility] DCP follow-up note: CM RECEIVED DISCHARGE ORDER, SPOKE TO PT IN ROOM WHO IS WILLING FOR DISCHARGE TO REHAB AT [facility]. IMPORTANT MESSAGE FROM MEDICARE PROVIDED AND EXPLAINED. CM SPOKE TO PT'S SPOUSE WHO IS ALSO IN AGREEMENT WITH REHAB AT [facility]. SECOND CHOICE REMAINS [facility]. RN CRISTY HOUSE NOTIFIED JACKSON OF INPATIENT REHAB AT [facility] WHO INFORMED CRISTY HOUSE THAT PT DOES NOT HAVE AN OUTPATIENT DIALYSIS UNIT AND THAT WAS THE PROBLEM WITH PT GETTING INTO REHAB IN [place]. CRISTY HOUSE SPOKE TO JOSEPH OF [facility] WHO ADVISED PT HAS DIALYSIS UNIT ASSIGNMENT IN [place] CHRONIC DIALYSIS PATIENT. CM CALLED JACKSON OF INPATIENT REHAB AND ADVISED HER THAT CM HAD NOT SENT ANY REFERRALS TO [facility] PT AND FAMILY FIRST CHOICE WAS REHAB AT [facility]. J[facility]SON OF INPATIENT REHAB ADVISED CRISTY HOUSE THAT THERAPY NEEDS TO WORK WITH PT TO SHOW HE GOING TO WORK WITH THERAPY SERVICES. HOSPITAL ACUTE REHAB SERVICES NOTIFIED. CM WAITING PROGRESSION WITH THERAPY AND ADMISSION DETERMINATION FROM [facility]. Meat Service Team Member: Walker Horton DCP- Discharge Planning Updated by [id number]: Walker Horton on 03/03/18 10:[address] Patient Name: OKSANA JENNINGS Encounter No: [id number] : 1940 Primary Insurance: MEDICARE A & B Anticipated DC Date: 03-02-2018 Planned Disposition: Inpatient Rehab External Planned Provider: [facility] DCP follow-up note: CM RECEIVED CALL FROM PT'S SPOUSE WHO HAS MET WITH INPATIENT REHAB SCREENERS WHO INFORMED HER THAT PT WILL AT LEAST NEED TO BE ABLE TO SIT UP ON THE SIDE OF BED WITHOUT BEING HELD UP TO BE ABLE TO COME TO INPATIENT REHAB; PT'S SPOUSE ALSO STATES THAT SHE WAS TOLD THAT PT IS SUPPOSED TO BE GETTING THERAPY TWICE DAILY WHILE IN THE HOSPITAL AND SHE IS DOUBTFUL THIS IS TAKING PLACE. PT'S SPOUSE INFORMED CM THAT IF PT IS NOT ABLE TO PROGRESS AND ADMIT TO INPATIENT REHAB AT [facility], THEIR HALFWAY CHOICE WILL BE [facility] IN [place]. CHOICE LETTER COMPLETED. CM CALLED DEANNA WITH THERAPY, NOTIFIED OF ABOVE, WITH FAMILY REQUEST FOR THERAPY TWICE PER DAY WITH GOAL OF RETURNING PT TO INPATIENT REHAB. CM WAITING MEDICAL STABILITY, PROGRESSION WITH THERAPY AND ADMISSION DETERMINATION FROM [facility]. Meat Service Team Member: Walker Horton DCP- Discharge Planning Updated by [id number]: Walker Horton on 03/02/18 12:[address] Patient Name: OKSANA JENNINGS Admission Status: Elective Accout number: [id number] Admission Date: 02-24-2018 : 1940 Admission Diagnosis:PNEUMONITIS DUE TO INHALATION OF FOOD AND VOMIT Attending: Dawit Soto Current LOS: 6 Anticipated DC Date: 03-02-2018 Planned Disposition: Inpatient Rehab Primary Insurance: MEDICARE A & B PLANNED EXTERNAL PROVIDER: [facility] INPATIENT RE[facility] Discharge Planning Comments: CM RECEIVED ORDER FOR INPATIENT REHAB PRESCREENING. CM MET WITH PT AND SPOUSE IN ROOM TO DISCUSS DISCHARGE PLANNING AND NEEDS. OKSANA JENNINGS provided verbal consent to discuss current and ongoing needs with/in the presence of: COOPER, SPOUSE. PT REPORTS LIVING AT HOME INDEPENDENTLY WITH SPOUSE. PT HAS NO MEDICAL EQUIPMENT AND NO OUTSIDE SERVICES ASSISTING IN THE HOME. CM DISCUSSED AVAILABILITY OF HOME HEALTH, REHAB SERVICES AND MEDICAL EQUIPMENT. PT WOULD LIKE TO GO BACK TO REHAB HERE. 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 PT REPORTS HIS SPOUSE WILL PICK HIM UP FOR DISCHARGE HOME. IMPORTANT MESSAGE FROM MEDICARE PROVIDED AND EXPLAINED. CM WAITING ADMISSION DETERMINATION FROM [facility] IN[facility]. Meat Service Team Member: Walker Horton DCPIA - Discharge Planning Initial Assessment Updated by [id number]: Walker Horton on 03/02/18 1:10 pm * Is the patient Alert and Oriented? Yes * How many steps to enter\exit or inside your home? RAMP * PCP ELIZABETH WILKINS * Pharmacy [facility] IN [place] OR [facility] * Preadmission Environment Home with Family * ADLs Independent * Equipment None * Other Equipment NO MEDICAL EQUIPMENT PROVIDER PREFERENCE * List name and contact numbers for known caregivers / representatives who currently or will assist patient after discharge: COOPER FERNÁNDEZAK, SPOUSE, * Verbal permission to speak to the caregivers and representatives has been obtained from the patient. Yes * Community resources currently utilized None * Please name any agencies selected above. NONE * Additional services required to return to the preadmission environment? Yes * Can the patient safely return to the preadmission environment? Yes * Has this patient been hospitalized within the prior 30 days at any hospital? Yes Coverage Notice Reviewer: NIMESH Horton Notice Issued Date-Time: 03/02/2018 13:00 Notice Type: IM Discharge Notice Notice Delivered To: Family Member Relationship to Patient: Spouse Shirt Maker Name: COOPER JENNINGS Delivery Method: HAND - Hand Delivered Hoda Days: Prior Verbal Notification: Recipient Understood Notice: Yes Recipient Signature: Yes Med Rec Note Co-signed by Attending: Coverage Notice Comment: Reviewer: NIMESH Horton Notice Issued Date-Time: 03/03/2018 10:50 Notice Type: Patient Choice Letter Notice Delivered To: Family Member Relationship to Patient: Spouse Shirt Maker Name: COOPER JENNINGS Delivery Method: HAND - Hand Delivered Hoda Days: Prior Verbal Notification: Recipient Understood Notice: Yes Recipient Signature: Yes Med Rec Note Co-signed by Attending: Coverage Notice Comment: Reviewer: NIMESH Horton Notice Issued Date-Time: 03/14/2018 9:00 Notice Type: IM Discharge Notice Notice Delivered To: Patient Relationship to Patient: Shirt Maker Name: Delivery Method: HAND - Hand Delivered Hoda Days: Prior Verbal Notification: Recipient Understood Notice: Yes Recipient Signature: Med Rec Note Co-signed by Attending: Coverage Notice Comment: Last DP export: 03/15/18 1:53 Patient Name: OKSANA JENNINGS Page [id number] at 1734 All edits/amendments must be made on the electronic document DICTATION DATE: 03/15/181732 TECHNICAL ANALYST: MELISSA 03/15/181732 RPT#: [id number] DC DATE: STATUS: ADM IN [facility] [address] [place] [address] END OF REPORT
--- NOTE | ~2018-02-24 | MORECARE ---
CASE MANAGEMENT DISCHARGE SUMMARY PATIENT: OKSANA JENNINGS UNIT: [id number] ADM DATE: 02/24/18 AGE: 77 : 38 SEX: M ROOM/BED: D.2107 AUTHOR: SANADOC PHYSICIAN: REFERRING PHYSICIAN: DAWIT SOTO MD DATE OF SERVICE: 03/15/18 Discharge Plan Patient Name: OKSANA JENNINGS Facility: [facility]:[place] : 1940 Planned Disposition: Correction Facility Anticipated Discharge Date: 03/15/18 Discharge Date: Expected LOS: 19 Initial Reviewer: [id number] Initial Review Date: 02/24/2018 Generated: 03/15/18 12:33 pm Comments DCP- Discharge Planning Updated by [id number]: Walker Horton on 03/15/18 10:[address] Patient Name: OKSANA JENNINGS Encounter No: [id number] : 1940 Primary Insurance: MEDICARE A & B Anticipated DC Date: 03-15-2018 Planned Disposition: Correction Facility External Planned Provider: [facility], MEDICARE REHAB DATE DCP follow-up note: CM RECEIVED MESSAGE FROM [facility], QUESTIONS ABOUT CHEMOTHERAPY, URINE CULTURE, BIPAP SETTINGS, WOUNDS AND IV MEDICATIONS. CM SPOKE TO PT'S SPOUSE WHO REPORTS PT IS NOT AND HAS NOT RECEIVED CHEMO THERAPY. CM REVIEWED CHART WITH INDICATED URINE CULTURE AT February THAT WAS POSITIVE (TREATED WITH ANTIBIOTICS HERE), PT NOT ON BIPAP, PT HAS REDNESS ON COXXYX AND WILL BE ON NO IV MEDICATIONS AT [facility]. CM NOTIFIED LATIA VIA PHONE, , FAXED SUPPORTING DOCUMENTS TO [facility] VIA LATIA AT [phone]. CM WAITING ADMISSION DETERMINATION FROM [facility]. SARA Gomez DCP- Discharge Planning Updated by [id number]: Walker Horton on 03/14/18 3:[address] Patient Name: OKSANA JENNINGS Encounter No: [id number] : 1940 Primary Insurance: MEDICARE A & B Anticipated DC Date: 03-15-2018 Planned Disposition: Correction Facility External Planned Provider: [facility], MEDICARE REHAB BED DCP follow-up note: CM RECEIVED CALL FROM [facility] OF INPATIENT REH[facility], THEY WILL NOT ACCEPT PT HE IS TOO LOW FUNCTIONING, SUGGESTED CARE HOME REHAB AND PT COULD REQUEST REEVALUATION BY INPATIENT REHAB WHEN HE IS ABLE TO PARTICIPATE FULLY WITH INPATIENT REHAB SERVICES. CM SPOKE TO PT'S SPOUSE VIA PHONE, CHOICE PREVIOUSLY COMPLETED FOR [facility], SPOUSE IN AGREEMENT. CM SPOKE TO PT IN ROOM, NOTIFIED OF ABOVE, PT IN AGREEMENT WITH REFERRAL TO REHAB AT [facility]. CM NOTIFIED LATIA, , OF REFERRAL FOR REHAB AT [facility] IN [place]. CM FAXED REFERRAL TO [facility] VIA LATIA AT [phone]. CM WAITING ADMISSION DETERMINATION FROM [facility]. Walker Horton, CASE MANAGEMENT DCP- Discharge Planning Updated by [id number]: Walker Horton on 03/14/18 10:[address] Patient Name: OKSANA JENNINGS Encounter No: [id number] : 1940 Primary Insurance: MEDICARE A & B Anticipated DC Date: 03-02-2018 Planned Disposition: Inpatient Rehab External Planned Provider: [facility] DCP follow-up note: CM RECEIVED DISCHARGE ORDER, SPOKE TO PT IN ROOM WHO IS WILLING FOR DISCHARGE TO REHAB AT [facility]. IMPORTANT MESSAGE FROM MEDICARE PROVIDED AND EXPLAINED. CM SPOKE TO PT'S SPOUSE WHO IS ALSO IN AGREEMENT WITH REHAB AT [place]. SECOND CHOICE REMAINS [facility]. RN CM HOUSE NOTIFIED JACKSON OF INPATIENT REHAB AT [place] WHO INFORMED HOUSE THAT PT DOES NOT HAVE AN OUTPATIENT DIALYSIS UNIT AND THAT WAS THE PROBLEM WITH PT GETTING INTO REHAB IN [place]. CM HOUSE SPOKE TO JOSEPH OF [facility] WHO ADVISED PT HAS DIALYSIS UNIT ASSIGNMENT IN [place] CHRONIC DIALYSIS PATIENT. CM CALLED JACKSON OF INPATIENT REHAB AND ADVISED HER THAT CM HAD NOT SENT ANY REFERRALS TO [facility] PT AND FAMILY FIRST CHOICE WAS REHAB AT [place]. [facility] OF INPATIENT REHAB ADVISED HOUSE THAT THERAPY NEEDS TO WORK WITH PT TO SHOW HE GOING TO WORK WITH THERAPY SERVICES. HOSPITAL ACUTE REHAB SERVICES NOTIFIED. CM WAITING PROGRESSION WITH THERAPY AND ADMISSION DETERMINATION FROM [facility] IN[facility]. Classroom Aide: Wlaker Horton DCP- Discharge Planning Updated by [id number]: Walker Horton on 03/03/18 10:[address] Patient Name: OKSANA JENNINGS Encounter No: [id number] : 1940 Primary Insurance: MEDICARE A & B Anticipated DC Date: 03-02-2018 Planned Disposition: Inpatient Rehab External Planned Provider: [facility] DCP follow-up note: CM RECEIVED CALL FROM PT'S SPOUSE WHO HAS MET WITH INPATIENT REHAB SCREENERS WHO INFORMED HER THAT PT WILL AT LEAST NEED TO BE ABLE TO SIT UP ON THE SIDE OF BED WITHOUT BEING HELD UP TO BE ABLE TO COME TO INPATIENT REHAB; PT'S SPOUSE ALSO STATES THAT SHE WAS TOLD THAT PT IS SUPPOSED TO BE GETTING THERAPY TWICE DAILY WHILE IN THE HOSPITAL AND SHE IS DOUBTFUL THIS IS TAKING PLACE. PT'S SPOUSE INFORMED CM THAT IF PT IS NOT ABLE TO PROGRESS AND ADMIT TO INPATIENT REHAB AT [place], THEIR CARE HOME CHOICE WILL BE [facility] IN [place]. CHOICE LETTER COMPLETED. CM CALLED DEANNA WITH THERAPY, NOTIFIED OF ABOVE, WITH FAMILY REQUEST FOR THERAPY TWICE PER DAY WITH GOAL OF RETURNING PT TO INPATIENT REHAB. CM WAITING MEDICAL STABILITY, PROGRESSION WITH THERAPY AND ADMISSION DETERMINATION FROM [facility] IN[facility]. Classroom Aide: Walker Horton DCP- Discharge Planning Updated by [id number]: Walker Horton on 03/02/18 12:[address] Patient Name: OKSANA JENNINGS Admission Status: Elective Accout number: [id number] Admission Date: 02-24-2018 : 1940 Admission Diagnosis:PNEUMONITIS DUE TO INHALATION OF FOOD AND VOMIT Attending: Dawit Soto Current LOS: 6 Anticipated DC Date: 03-02-2018 Planned Disposition: Inpatient Rehab Primary Insurance: MEDICARE A & B PLANNED EXTERNAL PROVIDER: [facility] INPATIENT REH[facility] Discharge Planning Comments: CM RECEIVED ORDER FOR INPATIENT REHAB PRESCREENING. CM MET WITH PT AND SPOUSE IN ROOM TO DISCUSS DISCHARGE PLANNING AND NEEDS. OKSANA JENNINGS provided verbal consent to discuss current and ongoing needs with/in the presence of: COOPER, SPOUSE. PT REPORTS LIVING AT HOME INDEPENDENTLY WITH SPOUSE. PT HAS NO MEDICAL EQUIPMENT AND NO OUTSIDE SERVICES ASSISTING IN THE HOME. CM DISCUSSED AVAILABILITY OF HOME HEALTH, REHAB SERVICES AND MEDICAL EQUIPMENT. PT WOULD LIKE TO GO BACK TO REHAB HERE. 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 PT REPORTS HIS SPOUSE WILL PICK HIM UP FOR DISCHARGE HOME. IMPORTANT MESSAGE FROM MEDICARE PROVIDED AND EXPLAINED. CM WAITING ADMISSION DETERMINATION FROM [facility] INPATIENT RE[facility]. Classroom Aide: Walker Horton DCPIA - Discharge Planning Initial Assessment Updated by [email or web address]: Walker Horton on 03/02/18 1:10 pm * Is the patient Alert and Oriented? Yes * How many steps to enter\exit or inside your home? RAMP * PCP ELIZABETH WILKINS * Pharmacy [facility] IN [place] OR [facility] * Preadmission Environment Home with Family * ADLs Independent * Equipment None * Other Equipment NO MEDICAL EQUIPMENT PROVIDER PREFERENCE * List name and contact numbers for known caregivers / representatives who currently or will assist patient after discharge: COOPER JENNINGS, SPOUSE, * Verbal permission to speak to the caregivers and representatives has been obtained from the patient. Yes * Community resources currently utilized None * Please name any agencies selected above. NONE * Additional services required to return to the preadmission environment? Yes * Can the patient safely return to the preadmission environment? Yes * Has this patient been hospitalized within the prior 30 days at any hospital? Yes Coverage Notice Reviewer: [id number] Horton Notice Issued Date-Time: 03/03/2018 10:50 Notice Type: Patient Choice Letter Notice Delivered To: Family Member Relationship to Patient: Spouse Tube Machine Operator Helper Name: COOPER JENNINGS Delivery Method: HAND - Hand Delivered Hoda Days: Prior Verbal Notification: Recipient Understood Notice: Yes Recipient Signature: Yes Med Rec Note Co-signed by Attending: Coverage Notice Comment: Reviewer: [id number] Horton Notice Issued Date-Time: 03/02/2018 13:00 Notice Type: IM Discharge Notice Notice Delivered To: Family Member Relationship to Patient: Spouse Tube Machine Operator Helper Name: COOPER JENNINGS Delivery Method: HAND - Hand Delivered Hoda Days: Prior Verbal Notification: Recipient Understood Notice: Yes Recipient Signature: Yes Med Rec Note Co-signed by Attending: Coverage Notice Comment: Reviewer: [id number] Horton Notice Issued Date-Time: 03/14/2018 9:00 Notice Type: IM Discharge Notice Notice Delivered To: Patient Relationship to Patient: Tube Machine Operator Helper Name: Delivery Method: HAND - Hand Delivered Hoda Days: Prior Verbal Notification: Recipient Understood Notice: Yes Recipient Signature: Med Rec Note Co-signed by Attending: Coverage Notice Comment: Last DP export: 03/15/18 8:58 Patient Name: OKSANA JENNINGS Page 26985 at 1133 All edits/amendments must be made on the electronic document DICTATION DATE: 03/15/181131 FLAME ANNEALING MACHINE OPERATOR: MELISSA 03/15/181131 RPT#: [id number] DC DATE: STATUS: ADM IN [facility] [address] [place] [address] END OF REPORT
--- NOTE | ~2018-02-24 | MORECARE ---
CASE MANAGEMENT DISCHARGE SUMMARY PATIENT: OKSANA JENNINGS UNIT: [id number] ADM DATE: 02/24/18 AGE: 77 : 38 SEX: M ROOM/BED: D.210 AUTHOR: GEORGIA HOOD PHYSICIAN: REFERRING PHYSICIAN: DAWIT SOTO MD DATE OF SERVICE: 03/16/18 Discharge Plan Patient Name: OKSANA JENNINGS Facility: [facility]:[place] : 1940 Planned Disposition: Long-Term Facility Anticipated Discharge Date: 03/16/18 Discharge Date: Expected LOS: 20 Initial Reviewer: [id number] Initial Review Date: 02/24/2018 Generated: 03/16/18 10:36 am Comments DCP- Discharge Planning Updated by [id number]: Walker Horton on 03/16/18 8:[address] Patient Name: OKSANA JENNINGS Encounter No: [id number] : 1940 Primary Insurance: MEDICARE A & B Anticipated DC Date: 03-16-2018 Planned Disposition: Long-Term Facility External Planned Provider: [facility] NURSING [facility], MEDICARE REHAB BED DCP follow-up note: CM SPOKE TO PT IN ROOM, PT WILLING FOR DISCHARGE TO REHAB AT [facility] TODAY. CM RECEIVED CALL FROM SPOUSE, SHE IS NOT DRIVING TO [place] AND WILL MEET PT AT [facility] TODAY. CM FAXED DISCHARGE INSTRUCTIONS TO [facility] AT [phone]. FLOW COORDINTOR NURSE NOTIFIED. NURSE REPORT TO BE CALLED TO [facility] AT [phone]. PT TO TRANSPORT VIA [facility]. Walker Horton CASE MANAGEMENT DCP- Discharge Planning Updated by [id number]: Walker Horton on 03/15/18 4:[address] Patient Name: OKSANA JENNINGS Encounter No: [id number] : 1940 Primary Insurance: MEDICARE A & B Anticipated DC Date: 03-16-2018 Planned Disposition: Long-Term Facility External Planned Provider: [facility] N[facility], MEDICARE REHAB BED DCP follow-up note: CM SPOKE TO LATIA OF [facility], THEY WILL ACCEPT PT AND WILL REPRODUCTIVE SURGEON FOR REHAB TOMORROW MORNING. CM NOTIFIED PRICING LEAD BELEM OF [facility]. CM NOTIFIED PT AND SPOUSE IN ROOM. CM NOTIFIED [employer] HELPER NURSE. FOR DISCHARGE 03-16-18, FAX DISCHARGE INSTRUCTIONS TO [facility] AT [phone]. NURSE REPORT TO BE CALLED TO [facility] AT [phone]. PT TO TRANSPORT [facility]IA [facility]. Walker Horton, CASE MANAGEMENT Appended by Walker Horton on 03/15/2018 17:26 WALLCOVERING TEXTURER: CM SPOKE TO JOSEPH OF PATIENT, VERIFIED PT'S HOME UNIT DIALYSIS SCHEDULE IN [place] OF MWF, 1130AM. FOR DISCHARGE 03-16-18, FAX DISCHARGE INSTRUCTIONS TO [facility] AT [phone]. NURSE REPORT TO BE CALLED TO [facility] AT [phone]. PT TO TRANSPORT [facility]IA [facility]. SARA Gomez DCP- Discharge Planning Updated by [id number]: Walker Horton on 03/15/18 10:[address] Patient Name: OKSANA JENNINGS Encounter No: [id number] : 1940 Primary Insurance: MEDICARE A & B Anticipated DC Date: 03-15-2018 Planned Disposition: Long-Term Facility External Planned Provider: [facility], MEDICARE REHAB DATE DCP follow-up note: CM RECEIVED MESSAGE FROM [facility], QUESTIONS ABOUT CHEMOTHERAPY, URINE CULTURE, BIPAP SETTINGS, WOUNDS AND IV MEDICATIONS. CM SPOKE TO PT'S SPOUSE WHO REPORTS PT IS NOT AND HAS NOT RECEIVED CHEMO THERAPY. CM REVIEWED CHART WITH INDICATED URINE CULTURE AT February THAT WAS POSITIVE (TREATED WITH ANTIBIOTICS HERE), PT NOT ON BIPAP, PT HAS REDNESS ON COXXYX AND WILL BE ON NO IV MEDICATIONS AT [facility]. CM NOTIFIED LATIA VIA PHONE, , FAXED SUPPORTING DOCUMENTS TO [facility] VIA LATIA AT [phone]. CM WAITING ADMISSION DETERMINATION FROM [facility] FOR REHAB SERVICES. SARA Gomez DCP- Discharge Planning Updated by [id number]: Walker Horton on 03/14/18 3:[address] Patient Name: OKSANA JENNINGS Encounter No: [id number] : 1940 Primary Insurance: MEDICARE A & B Anticipated DC Date: 03-15-2018 Planned Disposition: Long-Term Facility External Planned Provider: [facility], MEDICARE REHAB BED DCP follow-up note: CM RECEIVED CALL FROM [facility] OF INPATIENT REHAB, THEY WILL NOT ACCEPT PT HE IS TOO LOW FUNCTIONING, SUGGESTED [facility]DC REHAB AND PT COULD REQUEST REEVALUATION BY INPATIENT REHAB WHEN HE IS ABLE TO PARTICIPATE FULLY WITH INPATIENT REHAB SERVICES. CM SPOKE TO PT'S SPOUSE VIA PHONE, CHOICE PREVIOUSLY COMPLETED FOR [facility], SPOUSE IN AGREEMENT. CM SPOKE TO PT IN ROOM, NOTIFIED OF ABOVE, PT IN AGREEMENT WITH REFERRAL TO REHAB AT [facility]. CM NOTIFIED LATIA, , OF REFERRAL FOR REHAB AT [facility] IN [place]. CM FAXED REFERRAL TO [facility] VIA LATIA AT [phone]. CM WAITING ADMISSION DETERMINATION FROM [facility] FOR REHAB SERVICES. Walker Horton, CASE MANAGEMENT DCP- Discharge Planning Updated by [id number]: Walker Horton on 03/14/18 10:[address] Patient Name: OKSANA JENNINGS Encounter No: [id number] : 1940 Primary Insurance: MEDICARE A & B Anticipated DC Date: 03-02-2018 Planned Disposition: Inpatient Rehab External Planned Provider: [facility] INPATIENT REHAB DCP follow-up note: CM RECEIVED DISCHARGE ORDER, SPOKE TO PT IN ROOM WHO IS WILLING FOR DISCHARGE TO REHAB AT [facility]. IMPORTANT MESSAGE FROM MEDICARE PROVIDED AND EXPLAINED. CM SPOKE TO PT'S SPOUSE WHO IS ALSO IN AGREEMENT WITH REHAB AT [place]. SECOND CHOICE REMAINS [facility]. RN CRISTY HOUSE NOTIFIED JACKSON OF INPATIENT REHAB AT [place] WHO INFORMED HOUSE THAT PT DOES NOT HAVE AN OUTPATIENT DIALYSIS UNIT AND THAT WAS THE PROBLEM WITH PT GETTING INTO REHAB IN [place]. CM HOUSE SPOKE TO JOSEPH OF [facility] WHO ADVISED PT HAS DIALYSIS UNIT ASSIGNMENT IN [place] CHRONIC DIALYSIS PATIENT. CM CALLED [facility] OF INPATIENT REHAB AND ADVISED HER THAT CM HAD NOT SENT ANY REFERRALS TO [facility] PT AND FAMILY FIRST CHOICE WAS REHAB AT [place]. [facility] OF INPATIENT REHAB ADVISED HOUSE THAT THERAPY NEEDS TO WORK WITH PT TO SHOW HE GOING TO WORK WITH THERAPY SERVICES. HOSPITAL ACUTE REHAB SERVICES NOTIFIED. CM WAITING PROGRESSION WITH THERAPY AND ADMISSION DETERMINATION FROM [facility] INPATIENT REHAB. Workers Compensation Examiner: Walker Horton DCP- Discharge Planning Updated by [id number]: Walkre Horton on 03/03/18 10:[address] Patient Name: OKSANA JENNINGS Encounter No: [id number] : 1940 Primary Insurance: MEDICARE A & B Anticipated DC Date: 03-02-2018 Planned Disposition: Inpatient Rehab External Planned Provider: [facility] INPATIENT REHAB DCP follow-up note: CM RECEIVED CALL FROM PT'S SPOUSE WHO HAS MET WITH INPATIENT REHAB SCREENERS WHO INFORMED HER THAT PT WILL AT LEAST NEED TO BE ABLE TO SIT UP ON THE SIDE OF BED WITHOUT BEING HELD UP TO BE ABLE TO COME TO INPATIENT REHAB; PT'S SPOUSE ALSO STATES THAT SHE WAS TOLD THAT PT IS SUPPOSED TO BE GETTING THERAPY TWICE DAILY WHILE IN THE HOSPITAL AND SHE IS DOUBTFUL THIS IS TAKING PLACE. PT'S SPOUSE INFORMED CM THAT IF PT IS NOT ABLE TO PROGRESS AND ADMIT TO INPATIENT REHAB AT [place], THEIR FDC CHOICE WILL BE [facility] IN [place]. CHOICE LETTER COMPLETED. CM CALLED DEANNA WITH THERAPY, NOTIFIED OF ABOVE, WITH FAMILY REQUEST FOR THERAPY TWICE PER DAY WITH GOAL OF RETURNING PT TO INPATIENT REHAB. CM WAITING MEDICAL STABILITY, PROGRESSION WITH THERAPY AND ADMISSION DETERMINATION FROM [facility] INPATIENT REHAB. Workers Compensation Examiner: Walker Horton DCP- Discharge Planning Updated by [id number]: Walker Horton on 03/02/18 12:[address] Patient Name: OKSANA JENNINGS Admission Status: Elective Accout number: [id number] Admission Date: 02-24-2018 : 1940 Admission Diagnosis:PNEUMONITIS DUE TO INHALATION OF FOOD AND VOMIT Attending: Dawit Soto Current LOS: 6 Anticipated DC Date: 03-02-2018 Planned Disposition: Inpatient Rehab Primary Insurance: MEDICARE A & B PLANNED EXTERNAL PROVIDER: [facility] INPATIENT REHAB Discharge Planning Comments: CM RECEIVED ORDER FOR INPATIENT REHAB PRESCREENING. CM MET WITH PT AND SPOUSE IN ROOM TO DISCUSS DISCHARGE PLANNING AND NEEDS. OKSANA JENNINGS provided verbal consent to discuss current and ongoing needs with/in the presence of: COOPER, SPOUSE. PT REPORTS LIVING AT HOME INDEPENDENTLY WITH SPOUSE. PT HAS NO MEDICAL EQUIPMENT AND NO OUTSIDE SERVICES ASSISTING IN THE HOME. CM DISCUSSED AVAILABILITY OF HOME HEALTH, REHAB SERVICES AND MEDICAL EQUIPMENT. PT WOULD LIKE TO GO BACK TO REHAB HERE. 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 PT REPORTS HIS SPOUSE WILL PICK HIM UP FOR DISCHARGE HOME. IMPORTANT MESSAGE FROM MEDICARE PROVIDED AND EXPLAINED. CM WAITING ADMISSION DETERMINATION FROM [facility] INPATIENT REHAB. Workers Compensation Examiner: Walker Horton DCPIA - Discharge Planning Initial Assessment Updated by [id number]: Walker Horton on 03/02/18 1:10 pm * Is the patient Alert and Oriented? Yes * How many steps to enter\exit or inside your home? RAMP * PCP ELIZABETH WILKINS * Pharmacy [facility] IN [place] OR [facility] * Preadmission Environment Home with Family * ADLs Independent * Equipment None * Other Equipment NO MEDICAL EQUIPMENT PROVIDER PREFERENCE * List name and contact numbers for known caregivers / representatives who currently or will assist patient after discharge: COOPER JENNINGS, SPOUSE, * Verbal permission to speak to the caregivers and representatives has been obtained from the patient. Yes * Community resources currently utilized None * Please name any agencies selected above. NONE * Additional services required to return to the preadmission environment? Yes * Can the patient safely return to the preadmission environment? Yes * Has this patient been hospitalized within the prior 30 days at any hospital? Yes Coverage Notice Reviewer: NIMESH Horton Notice Issued Date-Time: 03/03/2018 10:50 Notice Type: Patient Choice Letter Notice Delivered To: Family Member Relationship to Patient: Spouse Area Operations Director Name: COOPER JENNINGS Delivery Method: HAND - Hand Delivered Hoda Days: Prior Verbal Notification: Recipient Understood Notice: Yes Recipient Signature: Yes Med Rec Note Co-signed by Attending: Coverage Notice Comment: Reviewer: NIMESH Horton Notice Issued Date-Time: 03/02/2018 13:00 Notice Type: IM Discharge Notice Notice Delivered To: Family Member Relationship to Patient: Spouse Area Operations Director Name: COOPER JENNINGS Delivery Method: HAND - Hand Delivered Hoda Days: Prior Verbal Notification: Recipient Understood Notice: Yes Recipient Signature: Yes Med Rec Note Co-signed by Attending: Coverage Notice Comment: Reviewer: NIMESH Horton Notice Issued Date-Time: 03/14/2018 9:00 Notice Type: IM Discharge Notice Notice Delivered To: Patient Relationship to Patient: Area Operations Director Name: Delivery Method: HAND - Hand Delivered Hoda Days: Prior Verbal Notification: Recipient Understood Notice: Yes Recipient Signature: Med Rec Note Co-signed by Attending: Coverage Notice Comment: Last DP export: 03/16/18 8:29 Patient Name: OKSANA JENNINGS Page 78680 at 0936 All edits/amendments must be made on the electronic document DICTATION DATE: 03/16/18935 BASE LOADER: MELISSA 03/16/18935 RPT#: [id number] DC DATE: STATUS: ADM IN [facility] [address] [place] [address] END OF REPORT
--- NOTE | ~2018-02-24 | MORECARE ---
CASE MANAGEMENT DISCHARGE SUMMARY PATIENT: OKSANA JENNINGS UNIT: [id number] ADM DATE: 02/24/18 AGE: 77 : 38 SEX: M ROOM/BED: D.8259 AUTHOR: GEORGIA HOOD PHYSICIAN: REFERRING PHYSICIAN: DAWIT SOTO MD DATE OF SERVICE: 03/14/18 Discharge Plan Patient Name: OKSANA JENNINGS [facility] [facility] 1940 Planned Disposition: Nursing Home Facility Anticipated Discharge Date: 03/15/18 Discharge Date: Expected LOS: 19 Initial Reviewer: [id number] Initial Review Date: 02/24/2018 Generated: 03/14/18 5:49 pm Comments DCP- Discharge Planning Updated by [id number]: Walker Horton on 03/14/18 10:[address] Patient Name: OKSANA JENNINGS Encounter No: [id number] : 1940 Primary Insurance: MEDICARE A & B Anticipated DC Date: 03-02-2018 Planned Disposition: Inpatient Rehab External Planned Provider: [facility] INPATIENT REHAB DCP follow-up note: CM RECEIVED DISCHARGE ORDER, SPOKE TO PT IN ROOM WHO IS WILLING FOR DISCHARGE TO REHAB AT [facility]. IMPORTANT MESSAGE FROM MEDICARE PROVIDED AND EXPLAINED. CM SPOKE TO PT'S SPOUSE WHO IS ALSO IN AGREEMENT WITH REHAB AT [place]. SECOND CHOICE REMAINS [facility]. RN HOUSE NOTIFIED [facility]ACKSON OF INPATIENT REHAB AT [place] WHO INFORMED [facility] THAT PT DOES NOT HAVE AN OUTPATIENT DIALYSIS UNIT AND THAT WAS THE PROBLEM WITH PT GETTING INTO REHAB IN [place]. HOUSE SPOKE TO JOSEPH OF [facility] WHO ADVISED PT HAS DIALYSIS UNIT ASSIGNMENT IN [place] CHRONIC DIALYSIS PATIENT. CM CALLED [facility] OF INPATIENT REHAB AND ADVISED HER THAT CM HAD NOT SENT ANY REFERRALS TO [facility] PT AND FAMILY FIRST CHOICE WAS REHAB AT [place]. [facility] OF INPATIENT REHAB ADVISED HOUSE THAT THERAPY NEEDS TO WORK WITH PT TO SHOW HE GOING TO WORK WITH THERAPY SERVICES. HOSPITAL ACUTE REHAB SERVICES NOTIFIED. CM WAITING PROGRESSION WITH THERAPY AND ADMISSION DETERMINATION FROM [facility] INPATIENT REHAB. Policy Officer: Walker Horton DCP- Discharge Planning Updated by [id number]: Walker Horton on 03/03/18 10:[address] Patient Name: OKSANA JENNINGS Encounter No: [id number] : 1940 Primary Insurance: MEDICARE A & B Anticipated DC Date: 03-02-2018 Planned Disposition: Inpatient Rehab External Planned Provider: [facility] INPATIENT REHAB DCP follow-up note: CM RECEIVED CALL FROM PT'S SPOUSE WHO HAS MET WITH INPATIENT REHAB SCREENERS WHO INFORMED HER THAT PT WILL AT LEAST NEED TO BE ABLE TO SIT UP ON THE SIDE OF BED WITHOUT BEING HELD UP TO BE ABLE TO COME TO INPATIENT REHAB; PT'S SPOUSE ALSO STATES THAT SHE WAS TOLD THAT PT IS SUPPOSED TO BE GETTING THERAPY TWICE DAILY WHILE IN THE HOSPITAL AND SHE IS DOUBTFUL THIS IS TAKING PLACE. PT'S SPOUSE INFORMED CM THAT IF PT IS NOT ABLE TO PROGRESS AND ADMIT TO INPATIENT REHAB AT [place], THEIR CUSTODIAL CHOICE WILL BE [facility]. CHOICE LETTER COMPLETED. CM CALLED DEANNA WITH THERAPY, NOTIFIED OF ABOVE, WITH FAMILY REQUEST FOR THERAPY TWICE PER DAY WITH GOAL OF RETURNING PT TO INPATIENT REHAB. CM WAITING MEDICAL STABILITY, PROGRESSION WITH THERAPY AND ADMISSION DETERMINATION FROM [facility] INPATIENT REHAB. Policy Officer: Walker Horton DCP- Discharge Planning Updated by [id number]: Walker Horton on 03/02/18 12:[address] Patient Name: OKSANA JENNINGS Admission Status: Elective Accout number: [id number] Admission Date: 02-24-2018 : 1940 Admission Diagnosis:PNEUMONITIS DUE TO INHALATION OF FOOD AND VOMIT Attending: Dawit Soto Current LOS: 6 Anticipated DC Date: 03-02-2018 Planned Disposition: Inpatient Rehab Primary Insurance: MEDICARE A & B PLANNED EXTERNAL PROVIDER: [facility] INPATIENT REHAB Discharge Planning Comments: CM RECEIVED ORDER FOR INPATIENT REHAB PRESCREENING. CM MET WITH PT AND SPOUSE IN ROOM TO DISCUSS DISCHARGE PLANNING AND NEEDS. OKSANA JENNINGS provided verbal consent to discuss current and ongoing needs with/in the presence of: COOPER, SPOUSE. PT REPORTS LIVING AT HOME INDEPENDENTLY WITH SPOUSE. PT HAS NO MEDICAL EQUIPMENT AND NO OUTSIDE SERVICES ASSISTING IN THE HOME. CM DISCUSSED AVAILABILITY OF HOME HEALTH, REHAB SERVICES AND MEDICAL EQUIPMENT. PT WOULD LIKE TO GO BACK TO REHAB HERE. 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 PT REPORTS HIS SPOUSE WILL PICK HIM UP FOR DISCHARGE HOME. IMPORTANT MESSAGE FROM MEDICARE PROVIDED AND EXPLAINED. CM WAITING ADMISSION DETERMINATION FROM [facility] INPATIENT REHAB. Policy Officer: Walker Horton DCPIA - Discharge Planning Initial Assessment Updated by [email or web address]: Walker Horton on 03/02/18 1:10 pm * Is the patient Alert and Oriented? Yes * How many steps to enter\exit or inside your home? RAMP * PCP DR. DE DIOS, [place] * Pharmacy [facility] IN [place] OR [facility] * Preadmission Environment Home with Family * ADLs Independent * Equipment None * Other Equipment NO MEDICAL EQUIPMENT PROVIDER PREFERENCE * List name and contact numbers for known caregivers / representatives who currently or will assist patient after discharge: COOPER JENNINGS, SPOUSE, * Verbal permission to speak to the caregivers and representatives has been obtained from the patient. Yes * Community resources currently utilized None * Please name any agencies selected above. NONE * Additional services required to return to the preadmission environment? Yes * Can the patient safely return to the preadmission environment? Yes * Has this patient been hospitalized within the prior 30 days at any hospital? Yes Coverage Notice Reviewer: [id number] Horton Notice Issued Date-Time: 03/03/2018 10:50 Notice Type: Patient Choice Letter Notice Delivered To: Family Member Relationship to Patient: Spouse Game Moderator Name: COOPER JENNINGS Delivery Method: HAND - Hand Delivered Hoda Days: Prior Verbal Notification: Recipient Understood Notice: Yes Recipient Signature: Yes Med Rec Note Co-signed by Attending: Coverage Notice Comment: Reviewer: [id number] Horton Notice Issued Date-Time: 03/02/2018 13:00 Notice Type: IM Discharge Notice Notice Delivered To: Family Member Relationship to Patient: Spouse Game Moderator Name: COOPER JENNINGS Delivery Method: HAND - Hand Delivered Hoda Days: Prior Verbal Notification: Recipient Understood Notice: Yes Recipient Signature: Yes Med Rec Note Co-signed by Attending: Coverage Notice Comment: Reviewer: NIMSEH Horton Notice Issued Date-Time: 03/14/2018 9:00 Notice Type: IM Discharge Notice Notice Delivered To: Patient Relationship to Patient: Game Moderator Name: Delivery Method: HAND - Hand Delivered Hoda Days: Prior Verbal Notification: Recipient Understood Notice: Yes Recipient Signature: Med Rec Note Co-signed by Attending: Coverage Notice Comment: Last DP export: 03/14/18 3:32 Patient Name: OKSANA JENNINGS Page 32141 at 1649 All edits/amendments must be made on the electronic document DICTATION DATE: 03/14/181648 BUSINESS INSURANCE AGENT: MELISSA 03/14/181648 RPT#: [id number] DC DATE: STATUS: ADM IN [facility] [address] [place] [address] END OF REPORT
--- NOTE | ~2018-02-24 | MORECARE ---
CASE MANAGEMENT DISCHARGE SUMMARY PATIENT: OKSANA JENNINGS UNIT: [id number] ADM DATE: 02/24/18 AGE: 77 : 38 SEX: M ROOM/BED: D.2106 AUTHOR: GEORGIA HOOD PHYSICIAN: REFERRING PHYSICIAN: DAWIT SOTO MD DATE OF SERVICE: 03/02/18 Discharge Plan Patient Name: OKSANA JENNINGS [facility] [facility] 1940 Planned Disposition: Inpatient Rehab Anticipated Discharge Date: 03/02/18 Discharge Date: Expected LOS: 6 Initial Reviewer: [id number] Initial Review Date: 02/24/2018 Generated: 03/02/18 2:21 pm Comments DCP- Discharge Planning Updated by [id number]: Walker Horton on 03/02/18 12:[address] Patient Name: OKSANA JENNINGS Admission Status: Elective Accout number: [id number] Admission Date: 02-24-2018 : 1940 Admission Diagnosis:PNEUMONITIS DUE TO INHALATION OF FOOD AND VOMIT Attending: Dawit Soto Current LOS: 6 Anticipated DC Date: 03-02-2018 Planned Disposition: Inpatient Rehab Primary Insurance: MEDICARE A & B PLANNED EXTERNAL PROVIDER: [facility] INPATIENT REHAB Discharge Planning Comments: CM RECEIVED ORDER FOR INPATIENT REHAB PRESCREENING. CM MET WITH PT AND SPOUSE IN ROOM TO DISCUSS DISCHARGE PLANNING AND NEEDS. OKSANA JENNINGS provided verbal consent to discuss current and ongoing needs with/in the presence of: COOPER, SPOUSE. PT REPORTS LIVING AT HOME INDEPENDENTLY WITH SPOUSE. PT HAS NO MEDICAL EQUIPMENT AND NO OUTSIDE SERVICES ASSISTING IN THE HOME. CM DISCUSSED AVAILABILITY OF HOME HEALTH, REHAB SERVICES AND MEDICAL EQUIPMENT. PT WOULD LIKE TO GO BACK TO REHAB HERE. 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 PT REPORTS HIS SPOUSE WILL PICK HIM UP FOR DISCHARGE HOME. IMPORTANT MESSAGE FROM MEDICARE PROVIDED AND EXPLAINED. CM WAITING ADMISSION DETERMINATION FROM [facility] INPATIENT REHAB. Global Transportation Manager: Walker Horton DCPIA - Discharge Planning Initial Assessment Updated by [id number]: Walker Horton on 03/02/18 1:10 pm * Is the patient Alert and Oriented? Yes * How many steps to enter\exit or inside your home? RAMP * PCP ELIZABETH WILKINS * Pharmacy [facility] IN [place] OR [facility] * Preadmission Environment Home with Family * ADLs Independent * Equipment None * Other Equipment NO MEDICAL EQUIPMENT PROVIDER PREFERENCE * List name and contact numbers for known caregivers / representatives who currently or will assist patient after discharge: COOPER JENNINGS, SPOUSE, * Verbal permission to speak to the caregivers and representatives has been obtained from the patient. Yes * Community resources currently utilized None * Please name any agencies selected above. NONE * Additional services required to return to the preadmission environment? Yes * Can the patient safely return to the preadmission environment? Yes * Has this patient been hospitalized within the prior 30 days at any hospital? Yes Last DP export: 03/02/18 12:14 p Patient Name: OKSANA JENNINGS Page 90081 at 1321 All edits/amendments must be made on the electronic document DICTATION DATE: 03/02/18 1321 [place] AFFIXER: MELISSA 03/02/18 1321 RPT#: [id number] DC DATE: STATUS: ADM IN [facility] [address] [place] [address] END OF REPORT
--- NOTE | ~2018-02-24 | HP ---
PATIENT: OKSANA JENNINGS MEDICAL RECORD: [id number] ACCOUNT: [id number] LOCATION:[facility] D.2301 : 38 ADMISSION DATE: 02/24/18 PCP: DAWIT WAHL MD HISTORY AND PHYSICAL EXAMINATION REASON FOR ADMISSION: ICU admission with aspiration. HISTORY OF PRESENT ILLNESS: This is a 77-year-old gentleman with ESRD chronically dialyzes Tuesday, Tuesday, Tuesday in [place] [facility]. He was scheduled for his dialysis today with a BUN of 120. His rehab nurse indicated that he is doing well and had fish for lunch. When I arrived to dialysis, he had had overt projectile emesis and had aspirated. His saturations were borderline and we are transferring and admitting him to the intensive care unit for monitoring. REVIEW OF SYSTEMS: He is slightly lethargic, but is not complaining of any pain, but does have apparent shortness of breath, although he denies any symptoms. REVIEW OF SYSTEMS: All review of systems are negative for Mr. Kebede. PAST MEDICAL HISTORY: 1. ESRD. 2. Hypertension. 3. Angioplasty with stents, coronary artery disease. 4. Edema. 5. Diabetes type 2. 6. He wears glasses and has dentures. He has had surgery on both eyes. 7. Psoriasis. 8. Chronic back pain with back surgery 01/2016. 9. BPH. 10. Anemia of CKD. 11. Hyperphosphatemia. 12. Hyperlipidemia. PAST SURGICAL HISTORY: Gallbladder, cataracts, pilonidal cyst excision in 1959 and 1959 and 1992 or 1994. He had sinus surgery 2010 and 2011. He had a kidney biopsy 07/2012. Back surgery 06/2014. Stents times 9. Coronary and fistula creation in his left arm, it is a brachiocephalic AV fistula. ALLERGIES: ATENOLOL, TROUBLE BREATHING; DILTIAZEM, DIFFICULTY BREATHING; HYDRALAZINE, DIFFICULTY BREATHING; BENADRYL, WORKS THE OPPOSITE FOR HIM; SILODOSIN HURT HIS KIDNEY, 08/2016; BACTRIM, UNSURE OF THE REACTION. MEDICATIONS: Have been reviewed are in the chart and have been insulin, nifedipine, amiodarone, Eliquis, aspirin, Lipitor, Dulcolax, Plavix, melatonin, senna, Desyrel, Zetia, nitroglycerin, Flomax, multiple discontinued medications in the past. FAMILY HISTORY: Parents with hypertension, natural child has hypertension. SOCIAL HISTORY: Current every day smoker, but no alcohol or illicit drugs. He lives in the [facility]. REVIEW OF SYSTEMS: Unobtainable. HISTORY AND PHYSICAL [id number] MICHAELAOKSANA KULKARNI PHYSICAL EXAMINATION: VITAL SIGNS: Temperature 132/72, pulse is 96, saturations were less than 90% on room air and he is now on nasal cannula. An ABG is being obtained. He is resting on oxygen at this time, does respond to commands and moves all extremities to commands as well. NECK: Full range of motion. Left upper extremity brachiocephalic AV fistula with infiltration in the mid humeral area. ABDOMEN: Soft, nontender. No clubbing of his lower extremities or edema. SKIN: No urticarial rash. LABORATORY DATA: Being obtained. ASSESSMENT AND PLAN: 1. Aspiration pneumonia, we will obtain an ABG, chest x-ray, starting vancomycin and Zosyn. 2. Atrial fibrillation, on Pacerone. 3. Coagulopathy, on Eliquis. 4. Hyperlipidemia, may hold his Lipitor. 5. Diabetes, sliding scale. 6. Benign prostatic hyperplasia, we will monitor his urine output. 7. Projectile vomiting, placed him on IV Protonix and we will monitor. 8. Tobacco use on admission. We will offer nicotine patches. PLAN: He is critically ill and now in the ICU. Please see orders. TRANSINT:[id number] Voice Confirmation ID: [id number] DOCUMENT ID: [id number] DAWIT WAHL MD at 0802 CC: [id number] DICTATION DATE: 02/24/181751 MANAGER COUNCIL: 02/24/182217 ADM IN [place] [address] [place] [address]
--- NOTE | ~2018-02-24 | MORECARE ---
CASE MANAGEMENT DISCHARGE SUMMARY PATIENT: OKSANA JENNINGS UNIT: [id number] ADM DATE: 02/24/18 AGE: 77 : 38 SEX: M ROOM/BED: D.2101 AUTHOR: GEORGIA HOOD PHYSICIAN: REFERRING PHYSICIAN: DAWIT WAHL MD DATE OF SERVICE: 03/02/18 Discharge Plan Patient Name: OKSANA JENNINGS [facility] [facility] 1940 Planned Disposition: Inpatient Rehab Anticipated Discharge Date: 03/02/18 Discharge Date: Expected LOS: 6 Initial Reviewer: [email or web address] Initial Review Date: 02/24/2018 Generated: 03/02/18 2:14 pm DCPIA - Discharge Planning Initial Assessment Updated by [email or web address]: Walker Horton on 03/02/18 1:10 pm * Is the patient Alert and Oriented? Yes * How many steps to enter\exit or inside your home? RAMP * PCP DR. DE DIOS RIP[place] * Pharmacy [facility] IN [place] OR [facility] * Preadmission Environment Home with Family * ADLs Independent * Equipment None * Other Equipment NO MEDICAL EQUIPMENT PROVIDER PREFERENCE * List name and contact numbers for known caregivers / representatives who currently or will assist patient after discharge: COOPER JENNINGS, SPOUSE, * Verbal permission to speak to the caregivers and representatives has been obtained from the patient. Yes * Community resources currently utilized None * Please name any agencies selected above. NONE * Additional services required to return to the preadmission environment? Yes * Can the patient safely return to the preadmission environment? Yes * Has this patient been hospitalized within the prior 30 days at any hospital? Yes Last DP export: 02/27/18 6:32 p Patient Name: OKSANA JENNINGS Page [phone] at 1314 All edits/amendments must be made on the electronic document DICTATION DATE: 03/02/18 1313 ELECTRICAL CONTROLS TECHNICIAN: MELISSA 03/02/18 1313 RPT#: [id number] DC DATE: STATUS: ADM IN [facility] [address] [place] [address] END OF REPORT
--- NOTE | ~2018-02-24 | MORECARE ---
CASE MANAGEMENT DISCHARGE SUMMARY PATIENT: OKSANA JENNINGS UNIT: [id number] ADM DATE: 02/24/18 AGE: 77 : 38 SEX: M ROOM/BED: D.4584 AUTHOR: GEORGIA HOOD PHYSICIAN: REFERRING PHYSICIAN: DAWIT SOTO MD DATE OF SERVICE: 03/14/18 Discharge Plan Patient Name: OKSANA JENNINGS Facility: [facility]:[place] : 1940 Planned Disposition: Inpatient Rehab Anticipated Discharge Date: 03/02/18 Discharge Date: Expected LOS: 6 Initial Reviewer: [id number] Initial Review Date: 02/24/2018 Generated: 03/14/18 5:32 pm Comments DCP- Discharge Planning Updated by [email or web address]: Walker Horton on 03/14/18 10:[address] Patient Name: OKSANA JENNINGS Encounter No: [id number] : 1940 Primary Insurance: MEDICARE A & B Anticipated DC Date: 03-02-2018 Planned Disposition: Inpatient Rehab External Planned Provider: [facility] INPATIENT REH[facility] DCP follow-up note: CM RECEIVED DISCHARGE ORDER, SPOKE TO PT IN ROOM WHO IS WILLING FOR DISCHARGE TO REHAB AT [facility]. IMPORTANT MESSAGE FROM MEDICARE PROVIDED AND EXPLAINED. CM SPOKE TO PT'S SPOUSE WHO IS ALSO IN AGREEMENT WITH REHAB AT [place]. SECOND CHOICE REMAINS [facility]. RN HOUSE NOTIFIED JACKSON OF INPATIENT REHAB AT [place] WHO INFORMED [facility] THAT PT DOES NOT HAVE AN OUTPATIENT DIALYSIS UNIT AND THAT WAS THE PROBLEM WITH PT GETTING INTO REHAB IN [place]. HOUSE SPOKE TO JOSEPH OF [facility] WHO ADVISED PT HAS DIALYSIS UNIT ASSIGNMENT IN [place] CHRONIC DIALYSIS PATIENT. CM CALLED JACKSON OF INPATIENT REHAB AND ADVISED HER THAT CM HAD NOT SENT ANY REFERRALS TO [facility] PT AND FAMILY FIRST CHOICE WAS REHAB AT [place]. JACKSON OF INPATIENT REHAB ADVISED HOUSE THAT THERAPY NEEDS TO WORK WITH PT TO SHOW HE GOING TO WORK WITH THERAPY SERVICES. HOSPITAL ACUTE REHAB SERVICES NOTIFIED. CM WAITING PROGRESSION WITH THERAPY AND ADMISSION DETERMINATION FROM [facility] INPATIENT REH[facility]. Master Dyer: Walker Horton DCP- Discharge Planning Updated by [id number]: Walker Horton on 03/03/18 10:[address] Patient Name: OKSANA JENNINGS Encounter No: [id number] : 1940 Primary Insurance: MEDICARE A & B Anticipated DC Date: 03-02-2018 Planned Disposition: Inpatient Rehab External Planned Provider: [facility] INPATIENT REH[facility] DCP follow-up note: CM RECEIVED CALL FROM PT'S SPOUSE WHO HAS MET WITH INPATIENT REHAB SCREENERS WHO INFORMED HER THAT PT WILL AT LEAST NEED TO BE ABLE TO SIT UP ON THE SIDE OF BED WITHOUT BEING HELD UP TO BE ABLE TO COME TO INPATIENT REHAB; PT'S SPOUSE ALSO STATES THAT SHE WAS TOLD THAT PT IS SUPPOSED TO BE GETTING THERAPY TWICE DAILY WHILE IN THE HOSPITAL AND SHE IS DOUBTFUL THIS IS TAKING PLACE. PT'S SPOUSE INFORMED CM THAT IF PT IS NOT ABLE TO PROGRESS AND ADMIT TO INPATIENT REHAB AT [place], THEIR PRISON CHOICE WILL BE [facility]. CHOICE LETTER COMPLETED. CM CALLED DEANNA WITH THERAPY, NOTIFIED OF ABOVE, WITH FAMILY REQUEST FOR THERAPY TWICE PER DAY WITH GOAL OF RETURNING PT TO INPATIENT REHAB. CM WAITING MEDICAL STABILITY, PROGRESSION WITH THERAPY AND ADMISSION DETERMINATION FROM [facility] INPATIENT RE[facility]. Master Dyer: Walker Horton DCP- Discharge Planning Updated by [id number]: Walker Horton on 03/02/18 12:[address] Patient Name: OKSANA JENNINGS Admission Status: Elective Accout number: [id number] Admission Date: 02-24-2018 : 1940 Admission Diagnosis:PNEUMONITIS DUE TO INHALATION OF FOOD AND VOMIT Attending: Dawit Soto Current LOS: 6 Anticipated DC Date: 03-02-2018 Planned Disposition: Inpatient Rehab Primary Insurance: MEDICARE A & B PLANNED EXTERNAL PROVIDER: [facility] INPATIENT REH[facility] Discharge Planning Comments: CM RECEIVED ORDER FOR INPATIENT REHAB PRESCREENING. CM MET WITH PT AND SPOUSE IN ROOM TO DISCUSS DISCHARGE PLANNING AND NEEDS. OKSANA JENNINGS provided verbal consent to discuss current and ongoing needs with/in the presence of: COOPER, SPOUSE. PT REPORTS LIVING AT HOME INDEPENDENTLY WITH SPOUSE. PT HAS NO MEDICAL EQUIPMENT AND NO OUTSIDE SERVICES ASSISTING IN THE HOME. CM DISCUSSED AVAILABILITY OF HOME HEALTH, REHAB SERVICES AND MEDICAL EQUIPMENT. PT WOULD LIKE TO GO BACK TO REHAB HERE. PT REPORTS HE WAS IN REHAB AFTER [facility] AND HAD ANOTHER STROKE WHILE IN REHAB. PT REPORTS HIS SPOUSE WILL PICK HIM UP FOR DISCHARGE HOME. IMPORTANT MESSAGE FROM MEDICARE PROVIDED AND EXPLAINED. CM WAITING ADMISSION DETERMINATION FROM [facility] INPATIENT RE[facility]. Master Dyer: Walker Horton DCPIA - Discharge Planning Initial Assessment Updated by [email or web address]: Walker Horton on 03/02/18 1:10 pm * Is the patient Alert and Oriented? Yes * How many steps to enter\exit or inside your home? RAMP * PCP DR. DE DIOS, [place] * Pharmacy [facility] [place] [facility] MA[facility] * Preadmission Environment Home with Family * ADLs Independent * Equipment None * Other Equipment NO MEDICAL EQUIPMENT PROVIDER PREFERENCE * List name and contact numbers for known caregivers / representatives who currently or will assist patient after discharge: COOPER JENNINGS, SPOUSE, * Verbal permission to speak to the caregivers and representatives has been obtained from the patient. Yes * Community resources currently utilized None * Please name any agencies selected above. NONE * Additional services required to return to the preadmission environment? Yes * Can the patient safely return to the preadmission environment? Yes * Has this patient been hospitalized within the prior 30 days at any hospital? Yes External Providers External Provider: [facility] Next Contact Date: 03/15/2018 Service Request Date: Service Type: Resolution: Reviewer: Comments: Coverage Notice Reviewer: NIMESH Horton Notice Issued Date-Time: 03/02/2018 13:00 Notice Type: IM Discharge Notice Notice Delivered To: Family Member Relationship to Patient: Spouse Vermin Exterminator Name: COOPER MICHAELA Delivery Method: HAND - Hand Delivered Hoda Days: Prior Verbal Notification: Recipient Understood Notice: Yes Recipient Signature: Yes Med Rec Note Co-signed by Attending: Coverage Notice Comment: Reviewer: NIMESH Horton Notice Issued Date-Time: 03/03/2018 10:50 Notice Type: Patient Choice Letter Notice Delivered To: Family Member Relationship to Patient: Spouse Vermin Exterminator Name: COOPER LAMCZAK Delivery Method: HAND - Hand Delivered Hoda Days: Prior Verbal Notification: Recipient Understood Notice: Yes Recipient Signature: Yes Med Rec Note Co-signed by Attending: Coverage Notice Comment: Reviewer: [email or web address] Horton Notice Issued Date-Time: 03/14/2018 9:00 Notice Type: IM Discharge Notice Notice Delivered To: Patient Relationship to Patient: Vermin Exterminator Name: Delivery Method: HAND - Hand Delivered Hoda Days: Prior Verbal Notification: Recipient Understood Notice: Yes Recipient Signature: Med Rec Note Co-signed by Attending: Coverage Notice Comment: Last DP export: 03/14/18 10:34 Patient Name: OKSANA JENNINGS Page [id number] at 1632 All edits/amendments must be made on the electronic document DICTATION DATE: 03/14/18 163 REEL ASSEMBLER: MELISSA 03/14/18 1631 RPT#: [id number] DC DATE: STATUS: ADM IN [facility] [address] [place] [address] END OF REPORT
--- NOTE | ~2018-02-24 | MORECARE ---
CASE MANAGEMENT DISCHARGE SUMMARY PATIENT: OKSANA JENNINGS UNIT: [id number] ADM DATE: 02/24/18 AGE: 77 : 38 SEX: M ROOM/BED: D.2104 AUTHOR: GEORGIA HOOD PHYSICIAN: REFERRING PHYSICIAN: DAWIT SOTO MD DATE OF SERVICE: 03/15/18 Discharge Plan Patient Name: OKSANA JENNINGS Facility: [facility]:[place] : 1940 Planned Disposition: Detention Facility Anticipated Discharge Date: 03/15/18 Discharge Date: Expected LOS: 19 Initial Reviewer: [id number] Initial Review Date: 02/24/2018 Generated: 03/15/18 10:58 am Comments DCP- Discharge Planning Updated by [id number]: Walker Horton on 03/14/18 3:[address] Patient Name: OKSANA JENNINGS Encounter No: [id number] : 1940 Primary Insurance: MEDICARE A & B Anticipated DC Date: 03-15-2018 Planned Disposition: Detention Facility External Planned Provider: [facility], MEDICARE REHAB BED DCP follow-up note: CM RECEIVED CALL FROM JACKSON OF INPATIENT REHAB, THEY WILL NOT ACCEPT PT HE IS TOO LOW FUNCTIONING, SUGGESTED PENITENTIARY REHAB AND PT COULD REQUEST REEVALUATION BY INPATIENT REHAB WHEN HE IS ABLE TO PARTICIPATE FULLY WITH INPATIENT REHAB SERVICES. CM SPOKE TO PT'S SPOUSE VIA PHONE, CHOICE PREVIOUSLY COMPLETED FOR [facility], SPOUSE IN AGREEMENT. CM SPOKE TO PT IN ROOM, NOTIFIED OF ABOVE, PT IN AGREEMENT WITH REFERRAL TO REHAB AT [facility]. CM NOTIFIED LATIA, , OF REFERRAL FOR REHAB AT [facility] IN [place]. CM FAXED REFERRAL TO [facility] VIA LATIA AT [phone]. CM WAITING ADMISSION DETERMINATION FROM [facility]. SARA Gomez DCP- Discharge Planning Updated by [id number]: Walker Horton on 03/14/18 10:[address] Patient Name: OKSANA JENNINGS Encounter No: [id number] : 1940 Primary Insurance: MEDICARE A & B Anticipated DC Date: 03-02-2018 Planned Disposition: Inpatient Rehab External Planned Provider: [facility] INPATIENT REHAB DCP follow-up note: CM RECEIVED DISCHARGE ORDER, SPOKE TO PT IN ROOM WHO IS WILLING FOR DISCHARGE TO REHAB AT [facility]. IMPORTANT MESSAGE FROM MEDICARE PROVIDED AND EXPLAINED. CM SPOKE TO PT'S SPOUSE WHO IS ALSO IN AGREEMENT WITH REHAB AT [place]. SECOND CHOICE REMAINS [facility]. RN CRISTY HOUSE NOTIFIED JACKSON OF INPATIENT REHAB AT [place] WHO INFORMED [facility] THAT PT DOES NOT HAVE AN OUTPATIENT DIALYSIS UNIT AND THAT WAS THE PROBLEM WITH PT GETTING INTO REHAB IN [place]. CRISTY HOUSE SPOKE TO JOSEPH OF [facility] WHO ADVISED PT HAS DIALYSIS UNIT ASSIGNMENT IN [place] CHRONIC DIALYSIS PATIENT. CM CALLED JACKSON OF INPATIENT REHAB AND ADVISED HER THAT CM HAD NOT SENT ANY REFERRALS TO [facility] PT AND FAMILY FIRST CHOICE WAS REHAB AT [place]. JACKSON OF INPATIENT REHAB ADVISED CRISTY PRADO THAT THERAPY NEEDS TO WORK WITH PT TO SHOW HE GOING TO WORK WITH THERAPY SERVICES. HOSPITAL ACUTE REHAB SERVICES NOTIFIED. CM WAITING PROGRESSION WITH THERAPY AND ADMISSION DETERMINATION FROM [facility] INPATIENT REHAB. Oil Seal Assembler: Walker Horton DCP- Discharge Planning Updated by [id number]: Walker Horton on 03/03/18 10:[address] Patient Name: OKSANA JENNINGS Encounter No: [id number] : 1940 Primary Insurance: MEDICARE A & B Anticipated DC Date: 03-02-2018 Planned Disposition: Inpatient Rehab External Planned Provider: [facility] INPATIENT REHAB DCP follow-up note: CM RECEIVED CALL FROM PT'S SPOUSE WHO HAS MET WITH INPATIENT REHAB SCREENERS WHO INFORMED HER THAT PT WILL AT LEAST NEED TO BE ABLE TO SIT UP ON THE SIDE OF BED WITHOUT BEING HELD UP TO BE ABLE TO COME TO INPATIENT REHAB; PT'S SPOUSE ALSO STATES THAT SHE WAS TOLD THAT PT IS SUPPOSED TO BE GETTING THERAPY TWICE DAILY WHILE IN THE HOSPITAL AND SHE IS DOUBTFUL THIS IS TAKING PLACE. PT'S SPOUSE INFORMED CM THAT IF PT IS NOT ABLE TO PROGRESS AND ADMIT TO INPATIENT REHAB AT [place], THEIR PENITENTIARY CHOICE WILL BE [facility] IN [place]. CHOICE LETTER COMPLETED. CM CALLED DEANNA WITH THERAPY, NOTIFIED OF ABOVE, WITH FAMILY REQUEST FOR THERAPY TWICE PER DAY WITH GOAL OF RETURNING PT TO INPATIENT REHAB. CM WAITING MEDICAL STABILITY, PROGRESSION WITH THERAPY AND ADMISSION DETERMINATION FROM [facility] INPATIENT REHAB. Oil Seal Assembler: Walker Horton DCP- Discharge Planning Updated by [id number]: Walker Horton on 03/02/18 12:[address] Patient Name: OKSANA JENNINGS Admission Status: Elective Accout number: [id number] Admission Date: 02-24-2018 : 1940 Admission Diagnosis:PNEUMONITIS DUE TO INHALATION OF FOOD AND VOMIT Attending: Dawit Soto Current LOS: 6 Anticipated DC Date: 03-02-2018 Planned Disposition: Inpatient Rehab Primary Insurance: MEDICARE A & B PLANNED EXTERNAL PROVIDER: [facility] INPATIENT REHAB Discharge Planning Comments: CM RECEIVED ORDER FOR INPATIENT REHAB PRESCREENING. CM MET WITH PT AND SPOUSE IN ROOM TO DISCUSS DISCHARGE PLANNING AND NEEDS. OKSANA JENNINGS provided verbal consent to discuss current and ongoing needs with/in the presence of: LUCIANA GAMBOA. PT REPORTS LIVING AT HOME INDEPENDENTLY WITH SPOUSE. PT HAS NO MEDICAL EQUIPMENT AND NO OUTSIDE SERVICES ASSISTING IN THE HOME. CM DISCUSSED AVAILABILITY OF HOME HEALTH, REHAB SERVICES AND MEDICAL EQUIPMENT. PT WOULD LIKE TO GO BACK TO REHAB HERE. PT REPORTS HE WAS IN REHAB AFTER DISCHARGE FROM [facility] AND HAD ANOTHER STROKE WHILE IN REHAB. PT REPORTS HIS SPOUSE WILL PICK HIM UP FOR DISCHARGE HOME. IMPORTANT MESSAGE FROM MEDICARE PROVIDED AND EXPLAINED. CM WAITING ADMISSION DETERMINATION FROM [facility] INPATIENT REHAB. Oil Seal Assembler: Walker Horton DCPIA - Discharge Planning Initial Assessment Updated by [id number]: Walker Horton on 03/02/18 1:10 pm * Is the patient Alert and Oriented? Yes * How many steps to enter\exit or inside your home? RAMP * PCP ELIZABETH WILKINS * Pharmacy [facility] IN [place] OR [facility] MA[facility] * Preadmission Environment Home with Family * ADLs Independent * Equipment None * Other Equipment NO MEDICAL EQUIPMENT PROVIDER PREFERENCE * List name and contact numbers for known caregivers / representatives who currently or will assist patient after discharge: COOPER LAMCZAK, SPOUSE, * Verbal permission to speak to the caregivers and representatives has been obtained from the patient. Yes * Community resources currently utilized None * Please name any agencies selected above. NONE * Additional services required to return to the preadmission environment? Yes * Can the patient safely return to the preadmission environment? Yes * Has this patient been hospitalized within the prior 30 days at any hospital? Yes Coverage Notice Reviewer: NIMESH Horton Notice Issued Date-Time: 03/03/2018 10:50 Notice Type: Patient Choice Letter Notice Delivered To: Family Member Relationship to Patient: Spouse Deli Associate Name: COOPER JENNINGS Delivery Method: HAND - Hand Delivered Hoda Days: Prior Verbal Notification: Recipient Understood Notice: Yes Recipient Signature: Yes Med Rec Note Co-signed by Attending: Coverage Notice Comment: Reviewer: NIMESH Horton Notice Issued Date-Time: 03/02/2018 13:00 Notice Type: IM Discharge Notice Notice Delivered To: Family Member Relationship to Patient: Spouse Deli Associate Name: COOPER JENNINGS Delivery Method: HAND - Hand Delivered Hoda Days: Prior Verbal Notification: Recipient Understood Notice: Yes Recipient Signature: Yes Med Rec Note Co-signed by Attending: Coverage Notice Comment: Reviewer: NIMESH Horton Notice Issued Date-Time: 03/14/2018 9:00 Notice Type: IM Discharge Notice Notice Delivered To: Patient Relationship to Patient: Deli Associate Name: Delivery Method: HAND - Hand Delivered Hoda Days: Prior Verbal Notification: Recipient Understood Notice: Yes Recipient Signature: Med Rec Note Co-signed by Attending: Coverage Notice Comment: Last DP export: 03/14/18 3:59 Patient Name: OKSANA JENNINGS Page [phone] at 0959 All edits/amendments must be made on the electronic document DICTATION DATE: 03/15/18957 GYPSUM BLOCK SETTER: MELISSA 03/15/18957 RPT#: [id number] DC DATE: STATUS: ADM IN [facility] [address] [place] [address] END OF REPORT
--- NOTE | ~2018-02-24 | MORECARE ---
CASE MANAGEMENT DISCHARGE SUMMARY PATIENT: OKSANA JENNINGS UNIT: [id number] ADM DATE: 02/24/18 AGE: 77 : 38 SEX: M ROOM/BED: D.5788 AUTHOR: GEORGIA HOOD PHYSICIAN: REFERRING PHYSICIAN: DAWIT SOTO MD DATE OF SERVICE: 03/14/18 Discharge Plan Patient Name: OKSANA JENNINGS Facility: [facility]:[place] : 1940 Planned Disposition: Inpatient Rehab Anticipated Discharge Date: 03/02/18 Discharge Date: Expected LOS: 6 Initial Reviewer: [id number] Initial Review Date: 02/24/2018 Generated: 03/14/18 12:34 pm Comments DCP- Discharge Planning Updated by [email or web address]: Walker Horton on 03/14/18 10:[address] Patient Name: OKSANA JENNINGS Encounter No: [id number] : 1940 Primary Insurance: MEDICARE A & B Anticipated DC Date: 03-02-2018 Planned Disposition: Inpatient Rehab External Planned Provider: [facility] INPATIENT REHAB DCP follow-up note: CM RECEIVED DISCHARGE ORDER, SPOKE TO PT IN ROOM WHO IS WILLING FOR DISCHARGE TO REHAB AT [facility]. IMPORTANT MESSAGE FROM MEDICARE PROVIDED AND EXPLAINED. CM SPOKE TO PT'S SPOUSE WHO IS ALSO IN AGREEMENT WITH REHAB AT [place]. SECOND CHOICE REMAINS [facility]. RN HOUSE NOTIFIED JACKSON OF INPATIENT REHAB AT [place] WHO INFORMED [facility] THAT PT DOES NOT HAVE AN OUTPATIENT DIALYSIS UNIT AND THAT WAS THE PROBLEM WITH PT GETTING INTO REHAB IN [place]. HOUSE SPOKE TO JOSEPH OF PATIENT PATHWAYS WHO ADVISED PT HAS DIALYSIS UNIT ASSIGNMENT IN [place] CHRONIC DIALYSIS PATIENT. CM CALLED JACKSON OF INPATIENT REHAB AND ADVISED HER THAT CM HAD NOT SENT ANY REFERRALS TO [facility] PT AND FAMILY FIRST CHOICE WAS REHAB AT [place]. JACKSON OF INPATIENT REHAB ADVISED HOUSE THAT THERAPY NEEDS TO WORK WITH PT TO SHOW HE GOING TO WORK WITH THERAPY SERVICES. HOSPITAL ACUTE REHAB SERVICES NOTIFIED. CM WAITING PROGRESSION WITH THERAPY AND ADMISSION DETERMINATION FROM [facility] INPATIENT REHAB. Cable Installation Technician: Walker Horton DCP- Discharge Planning Updated by [id number]: Walker Horton on 03/03/18 10:[address] Patient Name: OKSANA JENNINGS Encounter No: [id number] : 1940 Primary Insurance: MEDICARE A & B Anticipated DC Date: 03-02-2018 Planned Disposition: Inpatient Rehab External Planned Provider: [facility] INPATIENT REH[facility] DCP follow-up note: CM RECEIVED CALL FROM PT'S SPOUSE WHO HAS MET WITH INPATIENT REHAB SCREENERS WHO INFORMED HER THAT PT WILL AT LEAST NEED TO BE ABLE TO SIT UP ON THE SIDE OF BED WITHOUT BEING HELD UP TO BE ABLE TO COME TO INPATIENT REHAB; PT'S SPOUSE ALSO STATES THAT SHE WAS TOLD THAT PT IS SUPPOSED TO BE GETTING THERAPY TWICE DAILY WHILE IN THE HOSPITAL AND SHE IS DOUBTFUL THIS IS TAKING PLACE. PT'S SPOUSE INFORMED CM THAT IF PT IS NOT ABLE TO PROGRESS AND ADMIT TO INPATIENT REHAB AT [place], THEIR CUSTODIAL CHOICE WILL BE [facility]. CHOICE LETTER COMPLETED. CM CALLED DEANNA WITH THERAPY, NOTIFIED OF ABOVE, WITH FAMILY REQUEST FOR THERAPY TWICE PER DAY WITH GOAL OF RETURNING PT TO INPATIENT REHAB. CM WAITING MEDICAL STABILITY, PROGRESSION WITH THERAPY AND ADMISSION DETERMINATION FROM [facility] INPATIENT [facility]. Cable Installation Technician: Walker Horton DCP- Discharge Planning Updated by [id number]: Walker Horton on 03/02/18 12:[address] Patient Name: OKSANA JENNINGS Admission Status: Elective Accout number: [id number] Admission Date: 02-24-2018 : 1940 Admission Diagnosis:PNEUMONITIS DUE TO INHALATION OF FOOD AND VOMIT Attending: Dawit Soto Current LOS: 6 Anticipated DC Date: 03-02-2018 Planned Disposition: Inpatient Rehab Primary Insurance: MEDICARE A & B PLANNED EXTERNAL PROVIDER: [facility] INPATIENT REH[facility] Discharge Planning Comments: CM RECEIVED ORDER FOR INPATIENT REHAB PRESCREENING. CM MET WITH PT AND SPOUSE IN ROOM TO DISCUSS DISCHARGE PLANNING AND NEEDS. OKSANA JENNINGS provided verbal consent to discuss current and ongoing needs with/in the presence of: COOPER, SPOUSE. PT REPORTS LIVING AT HOME INDEPENDENTLY WITH SPOUSE. PT HAS NO MEDICAL EQUIPMENT AND NO OUTSIDE SERVICES ASSISTING IN THE HOME. CM DISCUSSED AVAILABILITY OF HOME HEALTH, REHAB SERVICES AND MEDICAL EQUIPMENT. PT WOULD LIKE TO GO BACK TO REHAB HERE. PT REPORTS HE WAS IN REHAB AFTER [facility]CHARGE [facility] AND HAD ANOTHER STROKE WHILE IN REHAB. PT REPORTS HIS SPOUSE WILL PICK HIM UP FOR DISCHARGE HOME. IMPORTANT MESSAGE FROM MEDICARE PROVIDED AND EXPLAINED. CM WAITING ADMISSION DETERMINATION FROM [facility] INPATIENT REH[facility]. Cable Installation Technician: Walker Horton DCPIA - Discharge Planning Initial Assessment Updated by [email or web address]: Walker Hroton on 03/02/18 1:10 pm * Is the patient Alert and Oriented? Yes * How many steps to enter\exit or inside your home? RAMP * PCP DR. DE DIOS, [place] * Pharmacy [facility] IN [place] OR [facility] * Preadmission Environment Home with Family * ADLs Independent * Equipment None * Other Equipment NO MEDICAL EQUIPMENT PROVIDER PREFERENCE * List name and contact numbers for known caregivers / representatives who currently or will assist patient after discharge: COOPER JENNINGS, SPOUSE, * Verbal permission to speak to the caregivers and representatives has been obtained from the patient. Yes * Community resources currently utilized None * Please name any agencies selected above. NONE * Additional services required to return to the preadmission environment? Yes * Can the patient safely return to the preadmission environment? Yes * Has this patient been hospitalized within the prior 30 days at any hospital? Yes Coverage Notice Reviewer: [id number] Horton Notice Issued Date-Time: 03/02/2018 13:00 Notice Type: IM Discharge Notice Notice Delivered To: Family Member Relationship to Patient: Spouse Desk Officer Name: COOPER JENNINGS Delivery Method: HAND - Hand Delivered Hoda Days: Prior Verbal Notification: Recipient Understood Notice: Yes Recipient Signature: Yes Med Rec Note Co-signed by Attending: Coverage Notice Comment: Reviewer: [id number] Horton Notice Issued Date-Time: 03/03/2018 10:50 Notice Type: Patient Choice Letter Notice Delivered To: Family Member Relationship to Patient: Spouse Desk Officer Name: COOPER JENNINGS Delivery Method: HAND - Hand Delivered Hoda Days: Prior Verbal Notification: Recipient Understood Notice: Yes Recipient Signature: Yes Med Rec Note Co-signed by Attending: Coverage Notice Comment: Reviewer: NIMESH Horton Notice Issued Date-Time: 03/14/2018 9:00 Notice Type: IM Discharge Notice Notice Delivered To: Patient Relationship to Patient: Desk Officer Name: Delivery Method: HAND - Hand Delivered Hoda Days: Prior Verbal Notification: Recipient Understood Notice: Yes Recipient Signature: Med Rec Note Co-signed by Attending: Coverage Notice Comment: Last DP export: 03/03/18 10:08 a Patient Name: OKSANA JENNINGS Page [id number] at 1134 All edits/amendments must be made on the electronic document DICTATION DATE: 03/14/18 113 RECOVERY ENGINEER: MELISSA 03/14/18 1134 RPT#: [id number] DC DATE: STATUS: ADM IN [facility] [address] [place] [address] END OF REPORT
[~2018-02-24 17:45] MED LIST changes: +ASPIRIN81 MG PO; +COLACE100 MG PO; +DESERYL50 M2 PO; +DULCOLAX5 MG PO; +ELIQUIS2.5 MG PO; +LIPITOR80 MG PO; +MELATONIN 3 MG1 TAB PO; +NIFEDIPINE60 MG/BOTT PO; +NITROSTAT0.4 MG PO; +PACERONE400 MG PO; +SENNA LAXATIVE8.6 MG PO; +SOLIQUA 100 UNIT3 ML SQ
[2018-02-24] MEDS ORDERED: BACLOFEN10 MG PO (17:55)
[2018-02-24] MEDS ORDERED: LASIX20 MG PO (17:57)
[2018-02-24] MEDS ORDERED: BASAGLAR K100 UNIT/1 SC (17:58)
[2018-02-24] MEDS ORDERED: CALMOSEPTINE OI71 GM TOPICAL (18:00)
[2018-02-24] MEDS ORDERED: ULTRAM50 MG PO (18:04)
[2018-02-25] VITALS (24 sets, daily range): BP systolic 100–154; BP diastolic 41–76; Ht 170.2 cm; Wt 69.3 kg
[2018-02-25 06:03] LABS: WBC 36.7 10x3/uL (4.8-10.8)
[2018-02-25 06:04] LABS: BASOPHILS 0.1 % (0-2); EOSINOPHILS 0 % (0-7); HEMATOCRIT 29.4 % (42.0-54.0); HEMOGLOBIN 9.6 g/dL (13.5-17.5); MCH 26.8 pg (26.0-34.0); MCHC 32.7 g/dL (31.0-37.0); MCV 82.1 fL (80.0-100.0); MEAN PLATELET VOLUME 9.5 fL (7.4-10.4); MONOCYTES 3.7 % (2-11); NEUTROPHILS 91.2 % (40-80); PLATELET COUNT 529 10x3/uL (130-400); RBC 3.58 10x6/uL (4.20-6.10); RDW 15.4 % (11.5-14.5)
[2018-02-25 06:22] LABS: ANION GAP 23.7 mmol/L (8-16); CALCIUM 9.6 mg/dL (8.5-10.1); CARBON DIOXIDE 23.7 mmol/L (21.0-32.0); CREATININE - SERUM 9.1 mg/dL (0.6-1.3)
[2018-02-25 06:29] LABS: PHOSPHOROUS 11.4 mg/dL (2.5-4.9); POTASSIUM - SERUM 5.4 mmol/L (3.5-5.1)
[2018-02-25 07:57] LABS: AMYLASE - SERUM 135 U/L (25-115); LIPASE 104 U/L (73-393)
[2018-02-25 11:46] LABS: APPEARANCE CLOUDY (CLEAR); BILIRUBIN NEGATIVE (NEGATIVE); COLOR YELLOW (YELLOW); GLUCOSE 50 mg/dL (NEGATIVE); KETONE NEGATIVE (NEGATIVE); NITRITE NEGATIVE (NEGATIVE); PROTEIN 3+ mg/dL (NEGATIVE); SPECIFIC GRAVITY 1.015 (1.005-1.020); UROBILINOGEN NORMAL (NORMAL)
[2018-02-25 11:47] LABS: BACTERIA FEW /hpf (NONE SEEN); EPITHELIAL CELLS NSEEN /hpf (0-5); RED CELLS - URINE RARE /hpf (0-5); WHITE CELLS - URINE 25-50 /hpf (0-5)
[2018-02-26] VITALS (24 sets, daily range): BP systolic 110–166; BP diastolic 38–92
[2018-02-26 04:47] LABS: BASOPHILS 0.1 % (0-2); EOSINOPHILS 0 % (0-7); HEMATOCRIT 26.9 % (42.0-54.0); HEMOGLOBIN 8.8 g/dL (13.5-17.5); IMMATURE GRANULOCYTES 1.2 % (0-5); LYMPHOCYTES 3.9 % (15-50); MCH 26.7 pg (26.0-34.0); MCHC 32.7 g/dL (31.0-37.0); MCV 81.5 fL (80.0-100.0); MEAN PLATELET VOLUME 9.5 fL (7.4-10.4); MONOCYTES 2.7 % (2-11); NEUTROPHILS 92.1 % (40-80); PLATELET COUNT 547 10x3/uL (130-400); RDW 15.4 % (11.5-14.5); WBC 24.9 10x3/uL (4.8-10.8)
[2018-02-26 05:18] LABS: ANION GAP 20.1 mmol/L (8-16); CALCIUM 9.8 mg/dL (8.5-10.1); CARBON DIOXIDE 25.4 mmol/L (21.0-32.0); CREATININE - SERUM 6.5 mg/dL (0.6-1.3); PHOSPHOROUS 9.9 mg/dL (2.5-4.9); POTASSIUM - SERUM 4.5 mmol/L (3.5-5.1)
[2018-02-27] VITALS (24 sets, daily range): BP systolic 110–164; BP diastolic 56–102
[2018-02-27 06:00] LABS: BASOPHILS 0.1 % (0-2); EOSINOPHILS 0 % (0-7); HEMATOCRIT 24.7 % (42.0-54.0); HEMOGLOBIN 8.1 g/dL (13.5-17.5); IMMATURE GRANULOCYTES 2.1 % (0-5); LYMPHOCYTES 4.5 % (15-50); MCH 26.5 pg (26.0-34.0); MCHC 32.8 g/dL (31.0-37.0); MCV 80.7 fL (80.0-100.0); MEAN PLATELET VOLUME 9.2 fL (7.4-10.4); MONOCYTES 4.2 % (2-11); NEUTROPHILS 89.1 % (40-80); PLATELET COUNT 507 10x3/uL (130-400); RBC 3.06 10x6/uL (4.20-6.10); RDW 15.1 % (11.5-14.5); WBC 23.1 10x3/uL (4.8-10.8)
[2018-02-27 06:35] LABS: ANION GAP 24.6 mmol/L (8-16); CALCIUM 9.7 mg/dL (8.5-10.1); CARBON DIOXIDE 22.9 mmol/L (21.0-32.0); POTASSIUM - SERUM 4.5 mmol/L (3.5-5.1); VANCOMYCIN - RANDOM 18.2 ug/mL (10.0-20.0)
[2018-02-27 06:37] LABS: CREATININE - SERUM 8.6 mg/dL (0.6-1.3)
[2018-02-27 06:38] LABS: PHOSPHOROUS 10.8 mg/dL (2.5-4.9)
[2018-02-28] VITALS (24 sets, daily range): BP systolic 115–179; BP diastolic 46–87
[2018-02-28 04:59] LABS: HEMATOCRIT 28.9 % (42.0-54.0); HEMOGLOBIN 9.5 g/dL (13.5-17.5); MCH 26.8 pg (26.0-34.0); MCHC 32.9 g/dL (31.0-37.0); MCV 81.6 fL (80.0-100.0); MEAN PLATELET VOLUME 9.2 fL (7.4-10.4); PLATELET COUNT 585 10x3/uL (130-400); RBC 3.54 10x6/uL (4.20-6.10); WBC 27.4 10x3/uL (4.8-10.8)
[2018-02-28 05:14] LABS: CALCIUM 9.7 mg/dL (8.5-10.1); CARBON DIOXIDE 22.4 mmol/L (21.0-32.0); CREATININE - SERUM 7.4 mg/dL (0.6-1.3)
[2018-02-28 06:08] LABS: PHOSPHOROUS 10.7 mg/dL (2.5-4.9)
[2018-02-28 07:13] LABS: ANION GAP 27.1 mmol/L (8-16); POTASSIUM - SERUM 4.5 mmol/L (3.5-5.1)
[2018-02-28 07:27] LABS: ANISOCYTOSIS OCC; EOSINOPHILS 1 % (0-7); LYMPHOCYTES 9 % (15-50); MONOCYTES 13 % (2-11); NEUTROPHILS 72 % (40-80); PLATELET ESTIMATE INCREASED; ROULEAUX OCC
[2018-02-28 09:19] LABS: HEPATITIS C ANTIBODY <0.1 S/CO RAT (0.0-0.9)
[2018-03-01] VITALS (13 sets, daily range): BP systolic 121–195; BP diastolic 46–88
[2018-03-01 04:53] LABS: BASOPHILS 0 % (0-2); EOSINOPHILS 0.2 % (0-7); HEMOGLOBIN 8.9 g/dL (13.5-17.5); IMMATURE GRANULOCYTES 1.3 % (0-5); LYMPHOCYTES 9.2 % (15-50); MCH 26.2 pg (26.0-34.0); MCHC 31.8 g/dL (31.0-37.0); MCV 82.4 fL (80.0-100.0); MEAN PLATELET VOLUME 8.9 fL (7.4-10.4); MONOCYTES 7.6 % (2-11); NEUTROPHILS 81.7 % (40-80); PLATELET COUNT 433 10x3/uL (130-400); RDW 15.1 % (11.5-14.5); WBC 20.3 10x3/uL (4.8-10.8)
[2018-03-01 05:09] LABS: ALBUMIN 2.2 g/dL (3.4-5.0); ANION GAP 21.3 mmol/L (8-16); CALCIUM 8.9 mg/dL (8.5-10.1); CARBON DIOXIDE 26.6 mmol/L (21.0-32.0); CREATININE - SERUM 6.2 mg/dL (0.6-1.3); MAGNESIUM - SERUM 2.5 mg/dL (1.8-2.4); POTASSIUM - SERUM 3.9 mmol/L (3.5-5.1); PRE-ALBUMIN 29.2 mg/dL (18.0-35.7); VANCOMYCIN - RANDOM 25.5 ug/mL (10.0-20.0)
[2018-03-02 03:55] VITALS: BP 151/48
[2018-03-02 05:12] LABS: BASOPHILS 0 % (0-2); EOSINOPHILS 0.9 % (0-7); HEMATOCRIT 28.8 % (42.0-54.0); HEMOGLOBIN 9.2 g/dL (13.5-17.5); IMMATURE GRANULOCYTES 1.1 % (0-5); LYMPHOCYTES 9.8 % (15-50); MCH 26.5 pg (26.0-34.0); MCHC 31.9 g/dL (31.0-37.0); MEAN PLATELET VOLUME 9.3 fL (7.4-10.4); MONOCYTES 6.9 % (2-11); NEUTROPHILS 81.3 % (40-80); PLATELET COUNT 414 10x3/uL (130-400); RBC 3.47 10x6/uL (4.20-6.10); RDW 15.1 % (11.5-14.5); WBC 20.5 10x3/uL (4.8-10.8)
[2018-03-02 05:17] LABS: ANION GAP 13.9 mmol/L (8-16); CALCIUM 8.9 mg/dL (8.5-10.1); CARBON DIOXIDE 29.6 mmol/L (21.0-32.0); POTASSIUM - SERUM 3.5 mmol/L (3.5-5.1); VANCOMYCIN - RANDOM 19.4 ug/mL (10.0-20.0)
[2018-03-02 05:25] LABS: CREATININE - SERUM 4.3 mg/dL (0.6-1.3); PHOSPHOROUS 6.7 mg/dL (2.5-4.9)
[2018-03-02 07:41] VITALS: BP 153/54
[2018-03-02 11:27] VITALS: BP 147/61
[2018-03-02 15:38] VITALS: BP 155/83
[2018-03-02 21:54] VITALS: BP 160/52
[2018-03-03] VITALS (7 sets, daily range): BP systolic 132–167; BP diastolic 47–68
[2018-03-03 05:55] LABS: BASOPHILS 0 % (0-2); EOSINOPHILS 0 % (0-7); HEMATOCRIT 26.9 % (42.0-54.0); HEMOGLOBIN 8.5 g/dL (13.5-17.5); IMMATURE GRANULOCYTES 0.7 % (0-5); LYMPHOCYTES 8.7 % (15-50); MCH 26.1 pg (26.0-34.0); MCHC 31.6 g/dL (31.0-37.0); MCV 82.5 fL (80.0-100.0); MEAN PLATELET VOLUME 9.5 fL (7.4-10.4); MONOCYTES 4.5 % (2-11); NEUTROPHILS 86.1 % (40-80); PLATELET COUNT 341 10x3/uL (130-400); RBC 3.26 10x6/uL (4.20-6.10)
[2018-03-03 06:09] LABS: WBC 13.7 10x3/uL (4.8-10.8)
[2018-03-03 06:29] LABS: ANION GAP 18.7 mmol/L (8-16); CALCIUM 8.7 mg/dL (8.5-10.1); CARBON DIOXIDE 25.3 mmol/L (21.0-32.0)
[2018-03-03 06:56] LABS: CREATININE - SERUM 6.5 mg/dL (0.6-1.3)
[2018-03-03 06:57] LABS: PHOSPHOROUS 10.1 mg/dL (2.5-4.9)
[2018-03-04 03:50] VITALS: BP 162/69
[2018-03-04 05:59] LABS: BASOPHILS 0.1 % (0-2); EOSINOPHILS 0 % (0-7); HEMATOCRIT 26.8 % (42.0-54.0); HEMOGLOBIN 8.7 g/dL (13.5-17.5); IMMATURE GRANULOCYTES 0.9 % (0-5); LYMPHOCYTES 9.3 % (15-50); MCH 26.7 pg (26.0-34.0); MCHC 32.5 g/dL (31.0-37.0); MCV 82.2 fL (80.0-100.0); MEAN PLATELET VOLUME 9.4 fL (7.4-10.4); MONOCYTES 4.7 % (2-11); PLATELET COUNT 355 10x3/uL (130-400); RBC 3.26 10x6/uL (4.20-6.10); RDW 15.2 % (11.5-14.5)
[2018-03-04 06:01] LABS: ANION GAP 15.4 mmol/L (8-16); CALCIUM 8.8 mg/dL (8.5-10.1); CARBON DIOXIDE 28.3 mmol/L (21.0-32.0); CREATININE - SERUM 5.4 mg/dL (0.6-1.3); POTASSIUM - SERUM 3.7 mmol/L (3.5-5.1); VANCOMYCIN - RANDOM 21.4 ug/mL (10.0-20.0)
[2018-03-04 06:02] LABS: PHOSPHOROUS 7.3 mg/dL (2.5-4.9)
[2018-03-04 08:06] VITALS: BP 164/47
[2018-03-04 11:04] VITALS: BP 162/51
[2018-03-04 15:50] VITALS: BP 178/94
[2018-03-04 19:45] VITALS: BP 167/43
[2018-03-04 23:55] VITALS: BP 158/62
[2018-03-05 03:45] VITALS: BP 161/39
[2018-03-05 04:43] LABS: BASOPHILS 0 % (0-2); EOSINOPHILS 0 % (0-7); HEMATOCRIT 26.5 % (42.0-54.0); HEMOGLOBIN 8.4 g/dL (13.5-17.5); IMMATURE GRANULOCYTES 0.8 % (0-5); LYMPHOCYTES 8.2 % (15-50); MCH 26.2 pg (26.0-34.0); MCHC 31.7 g/dL (31.0-37.0); MCV 82.6 fL (80.0-100.0); MEAN PLATELET VOLUME 9.6 fL (7.4-10.4); PLATELET COUNT 376 10x3/uL (130-400); RBC 3.21 10x6/uL (4.20-6.10); RDW 15.2 % (11.5-14.5); WBC 16.3 10x3/uL (4.8-10.8)
[2018-03-05 05:01] LABS: ANION GAP 18.2 mmol/L (8-16); CALCIUM 8.8 mg/dL (8.5-10.1); CARBON DIOXIDE 24.6 mmol/L (21.0-32.0); CREATININE - SERUM 6.7 mg/dL (0.6-1.3); PHOSPHOROUS 8.9 mg/dL (2.5-4.9); POTASSIUM - SERUM 3.8 mmol/L (3.5-5.1); VANCOMYCIN - RANDOM 18.8 ug/mL (10.0-20.0)
[2018-03-05 08:15] VITALS: BP 184/54
[2018-03-05 11:34] VITALS: BP 188/57
[2018-03-05 16:08] VITALS: BP 147/63
[2018-03-05 19:55] VITALS: BP 167/55
[2018-03-05 23:55] VITALS: BP 158/76
[2018-03-06 04:00] VITALS: BP 126/43
[2018-03-06 04:28] LABS: BASOPHILS 0 % (0-2); EOSINOPHILS 0 % (0-7); HEMOGLOBIN 8.7 g/dL (13.5-17.5); IMMATURE GRANULOCYTES 1.1 % (0-5); LYMPHOCYTES 6.2 % (15-50); MCH 26.7 pg (26.0-34.0); MCHC 32.2 g/dL (31.0-37.0); MCV 82.8 fL (80.0-100.0); MEAN PLATELET VOLUME 9.5 fL (7.4-10.4); NEUTROPHILS 88.7 % (40-80); PLATELET COUNT 459 10x3/uL (130-400); RBC 3.26 10x6/uL (4.20-6.10); RDW 15.4 % (11.5-14.5); WBC 23.3 10x3/uL (4.8-10.8)
[2018-03-06 04:39] LABS: ANION GAP 21.1 mmol/L (8-16); CALCIUM 8.6 mg/dL (8.5-10.1); CARBON DIOXIDE 23.5 mmol/L (21.0-32.0); CREATININE - SERUM 7.1 mg/dL (0.6-1.3); POTASSIUM - SERUM 3.6 mmol/L (3.5-5.1); VANCOMYCIN - RANDOM 16.6 ug/mL (10.0-20.0)
[2018-03-06 08:26] VITALS: BP 119/42
[2018-03-06 16:43] VITALS: BP 113/34
[2018-03-06 16:58] VITALS: BP 120/40
[2018-03-06 20:57] VITALS: BP 121/43
[2018-03-07 00:29] VITALS: BP 127/49
[2018-03-07 04:13] LABS: BASOPHILS 0 % (0-2); EOSINOPHILS 0.1 % (0-7); HEMATOCRIT 25.3 % (42.0-54.0); HEMOGLOBIN 8.1 g/dL (13.5-17.5); IMMATURE GRANULOCYTES 0.8 % (0-5); LYMPHOCYTES 4.6 % (15-50); MCH 26.7 pg (26.0-34.0); MCV 83.5 fL (80.0-100.0); MEAN PLATELET VOLUME 9.6 fL (7.4-10.4); MONOCYTES 3.4 % (2-11); NEUTROPHILS 91.1 % (40-80); PLATELET COUNT 446 10x3/uL (130-400); RBC 3.03 10x6/uL (4.20-6.10); RDW 15.8 % (11.5-14.5); WBC 31.6 10x3/uL (4.8-10.8)
[2018-03-07 04:26] LABS: ANION GAP 17.3 mmol/L (8-16); CALCIUM 8.7 mg/dL (8.5-10.1); CARBON DIOXIDE 25.8 mmol/L (21.0-32.0); CREATININE - SERUM 7.3 mg/dL (0.6-1.3); POTASSIUM - SERUM 4.1 mmol/L (3.5-5.1); VANCOMYCIN - RANDOM 25.3 ug/mL (10.0-20.0)
[2018-03-07 04:57] VITALS: BP 139/56
[2018-03-07 07:56] VITALS: BP 137/35
[2018-03-07 12:42] VITALS: BP 128/41
[2018-03-07 16:25] VITALS: BP 130/42
[2018-03-07 19:01] LABS: APPEARANCE CLEAR (CLEAR); BILIRUBIN NEGATIVE (NEGATIVE); COLOR YELLOW (YELLOW); GLUCOSE 100 mg/dL (NEGATIVE); KETONE NEGATIVE (NEGATIVE); NITRITE NEGATIVE (NEGATIVE); PROTEIN NEGATIVE (NEGATIVE); RED CELLS - URINE NONE SEEN /hpf (0-5); UROBILINOGEN NORMAL (NORMAL); WHITE CELLS - URINE 0-5 /hpf (0-5)
[2018-03-07 21:15] VITALS: BP 135/44
[2018-03-08] VITALS: BP 139/52
[2018-03-08 05:17] VITALS: BP 131/49
[2018-03-08 06:30] LABS: HEMATOCRIT 23.8 % (42.0-54.0); HEMOGLOBIN 7.7 g/dL (13.5-17.5); MCH 26.8 pg (26.0-34.0); MCHC 32.4 g/dL (31.0-37.0); MCV 82.9 fL (80.0-100.0); MEAN PLATELET VOLUME 9.6 fL (7.4-10.4); PLATELET COUNT 450 10x3/uL (130-400); RBC 2.87 10x6/uL (4.20-6.10); RDW 15.9 % (11.5-14.5); WBC 33.5 10x3/uL (4.8-10.8)
[2018-03-08 06:44] LABS: ANION GAP 20.9 mmol/L (8-16); CALCIUM 8.5 mg/dL (8.5-10.1); CREATININE - SERUM 8.8 mg/dL (0.6-1.3); POTASSIUM - SERUM 3.9 mmol/L (3.5-5.1)
[2018-03-08 07:36] LABS: LYMPHOCYTES 9 % (15-50); MONOCYTES 1 % (2-11); NEUTROPHILS 90 % (40-80)
[2018-03-08 07:50] LABS: PLATELET ESTIMATE INCREASED
[2018-03-08 08:11] VITALS: BP 131/54
[2018-03-08 11:13] VITALS: BP 111/41
[2018-03-08 15:37] VITALS: BP 122/41
[2018-03-08 21:24] VITALS: BP 104/46
[2018-03-09] VITALS: BP 108/49
[2018-03-09 05:02] VITALS: BP 144/50
[2018-03-09 06:15] LABS: BASOPHILS 0 % (0-2); EOSINOPHILS 0 % (0-7); HEMATOCRIT 28.1 % (42.0-54.0); HEMOGLOBIN 9.2 g/dL (13.5-17.5); IMMATURE GRANULOCYTES 0.6 % (0-5); LYMPHOCYTES 4.1 % (15-50); MCH 27.2 pg (26.0-34.0); MCHC 32.7 g/dL (31.0-37.0); MCV 83.1 fL (80.0-100.0); MEAN PLATELET VOLUME 9.6 fL (7.4-10.4); MONOCYTES 4.1 % (2-11); NEUTROPHILS 91.2 % (40-80); PLATELET COUNT 399 10x3/uL (130-400); RBC 3.38 10x6/uL (4.20-6.10); RDW 16.1 % (11.5-14.5); WBC 26.4 10x3/uL (4.8-10.8)
[2018-03-09 06:50] LABS: ANION GAP 21.8 mmol/L (8-16); CALCIUM 8.7 mg/dL (8.5-10.1); CARBON DIOXIDE 22.7 mmol/L (21.0-32.0); POTASSIUM - SERUM 3.5 mmol/L (3.5-5.1); VANCOMYCIN - RANDOM 22.4 ug/mL (10.0-20.0)
[2018-03-09 08:07] VITALS: BP 144/42
[2018-03-09 11:44] VITALS: BP 110/49
[2018-03-09 20:00] VITALS: BP 121/39
[2018-03-10 04:00] VITALS: BP 136/44
[2018-03-10 05:37] LABS: BASOPHILS 0 % (0-2); EOSINOPHILS 0.1 % (0-7); HEMATOCRIT 26.2 % (42.0-54.0); HEMOGLOBIN 8.5 g/dL (13.5-17.5); IMMATURE GRANULOCYTES 0.6 % (0-5); MCHC 32.4 g/dL (31.0-37.0); MCV 83.2 fL (80.0-100.0); MEAN PLATELET VOLUME 9.4 fL (7.4-10.4); MONOCYTES 5.6 % (2-11); NEUTROPHILS 87.7 % (40-80); PLATELET COUNT 364 10x3/uL (130-400); RBC 3.15 10x6/uL (4.20-6.10); RDW 16.2 % (11.5-14.5)
[2018-03-10 05:39] LABS: WBC 18.3 10x3/uL (4.8-10.8)
[2018-03-10 06:37] LABS: ANION GAP 27.2 mmol/L (8-16); CALCIUM 8.7 mg/dL (8.5-10.1); CARBON DIOXIDE 21.5 mmol/L (21.0-32.0); CREATININE - SERUM 9.5 mg/dL (0.6-1.3); POTASSIUM - SERUM 3.7 mmol/L (3.5-5.1); THYROID STIMULATING HORMONE 0.39 uIU/mL (0.36-3.74)
[2018-03-10 08:00] VITALS: BP 136/50
[2018-03-10 17:55] VITALS: BP 105/19
[2018-03-10 18:04] VITALS: BP 110/37
[2018-03-10 23:55] VITALS: BP 130/24
[2018-03-11 03:45] VITALS: BP 131/29
[2018-03-11 06:40] LABS: BASOPHILS 0 % (0-2); EOSINOPHILS 0.1 % (0-7); HEMATOCRIT 27.7 % (42.0-54.0); HEMOGLOBIN 8.7 g/dL (13.5-17.5); IMMATURE GRANULOCYTES 0.4 % (0-5); LYMPHOCYTES 8.1 % (15-50); MCH 26.7 pg (26.0-34.0); MCHC 31.4 g/dL (31.0-37.0); MEAN PLATELET VOLUME 9.7 fL (7.4-10.4); MONOCYTES 5.6 % (2-11); NEUTROPHILS 85.8 % (40-80); PLATELET COUNT 329 10x3/uL (130-400); RBC 3.26 10x6/uL (4.20-6.10); RDW 16.5 % (11.5-14.5)
[2018-03-11 06:43] LABS: WBC 13.6 10x3/uL (4.8-10.8)
[2018-03-11 06:56] LABS: ANION GAP 15.3 mmol/L (8-16); CALCIUM 8.2 mg/dL (8.5-10.1); POTASSIUM - SERUM 3.9 mmol/L (3.5-5.1)
[2018-03-11 07:04] LABS: CARBON DIOXIDE 28.6 mmol/L (21.0-32.0); CREATININE - SERUM 6.8 mg/dL (0.6-1.3)
[2018-03-11 08:26] VITALS: BP 116/50
[2018-03-11 10:14] LABS: PSA - % FREE 17.9 % (()); PSA - FREE 0.5 ng/mL; PSA - TOTAL 2.8 ng/mL (0.0-4.0)
[2018-03-11 15:07] VITALS: BP 127/49
[2018-03-11 17:00] VITALS: BP 118/70
[2018-03-12] VITALS: BP 114/48
[2018-03-12 05:37] VITALS: BP 102/45
[2018-03-12 11:35] LABS: BASOPHILS 0 % (0-2); EOSINOPHILS 0.2 % (0-7); HEMOGLOBIN 8.4 g/dL (13.5-17.5); IMMATURE GRANULOCYTES 0.4 % (0-5); LYMPHOCYTES 8.4 % (15-50); MCH 26.7 pg (26.0-34.0); MCHC 31.1 g/dL (31.0-37.0); MCV 85.7 fL (80.0-100.0); MEAN PLATELET VOLUME 9.6 fL (7.4-10.4); MONOCYTES 6.8 % (2-11); NEUTROPHILS 84.2 % (40-80); PLATELET COUNT 315 10x3/uL (130-400); RBC 3.15 10x6/uL (4.20-6.10); RDW 16.5 % (11.5-14.5); WBC 12.8 10x3/uL (4.8-10.8)
[2018-03-12 11:40] LABS: CALCIUM 8.4 mg/dL (8.5-10.1); CARBON DIOXIDE 22.4 mmol/L (21.0-32.0); POTASSIUM - SERUM 4.4 mmol/L (3.5-5.1)
[2018-03-12 11:41] LABS: CREATININE - SERUM 8.6 mg/dL (0.6-1.3)
[2018-03-12 17:00] VITALS: BP 124/57
[2018-03-13] VITALS: BP 127/52
[2018-03-13 05:51] VITALS: BP 133/50
[2018-03-13 08:58] VITALS: BP 115/50
[2018-03-13 15:33] VITALS: BP 157/50
[2018-03-13 20:00] VITALS: BP 114/49
[2018-03-14] VITALS: BP 98/56
[2018-03-14 04:47] LABS: BASOPHILS 0 % (0-2); EOSINOPHILS 2.7 % (0-7); HEMATOCRIT 26.5 % (42.0-54.0); HEMOGLOBIN 8.4 g/dL (13.5-17.5); IMMATURE GRANULOCYTES 0.5 % (0-5); LYMPHOCYTES 10.8 % (15-50); MCH 27.2 pg (26.0-34.0); MCHC 31.7 g/dL (31.0-37.0); MCV 85.8 fL (80.0-100.0); MEAN PLATELET VOLUME 9.3 fL (7.4-10.4); MONOCYTES 8.2 % (2-11); NEUTROPHILS 77.8 % (40-80); PLATELET COUNT 273 10x3/uL (130-400); RBC 3.09 10x6/uL (4.20-6.10); RDW 16.1 % (11.5-14.5); WBC 8.8 10x3/uL (4.8-10.8)
[2018-03-14 04:53] LABS: ANION GAP 14.1 mmol/L (8-16); CALCIUM 8.3 mg/dL (8.5-10.1); CREATININE - SERUM 6.5 mg/dL (0.6-1.3); POTASSIUM - SERUM 4.9 mmol/L (3.5-5.1); VANCOMYCIN - RANDOM 21.2 ug/mL (10.0-20.0)
[2018-03-14 04:57] LABS: CARBON DIOXIDE 29.8 mmol/L (21.0-32.0)
[2018-03-14] MEDS ORDERED: BENICAR20 MG PO (06:46)
[2018-03-14] MEDS ORDERED: NIFEDIPINE30 MG/BOT1 PO (06:46)
[2018-03-14] MEDS ORDERED: PROTONIX40 MG PO (06:47)
[2018-03-14] MEDS ORDERED: MEGACE400 MG/10 PO (06:47)
[2018-03-14] MEDS ORDERED: HUMALOG 30100 UNITS/ SC (06:48)
[2018-03-14] MEDS ORDERED: PHOSLO667 MG PO (06:48)
[2018-03-14] MEDS ORDERED: SINGULAIR10 MG PO (06:48)
[2018-03-14] MEDS ORDERED: CATAPRES0.1 MG PO (06:49)
[2018-03-14 08:13] VITALS: BP 126/45
[2018-03-14 11:57] VITALS: BP 123/85
[2018-03-14 21:09] VITALS: BP 135/34
[2018-03-15 04:00] VITALS: BP 143/41
[2018-03-15 05:01] LABS: BASOPHILS 0 % (0-2); EOSINOPHILS 2.3 % (0-7); HEMATOCRIT 26.4 % (42.0-54.0); HEMOGLOBIN 8.2 g/dL (13.5-17.5); IMMATURE GRANULOCYTES 0.7 % (0-5); LYMPHOCYTES 11.6 % (15-50); MCH 26.6 pg (26.0-34.0); MCHC 31.1 g/dL (31.0-37.0); MCV 85.7 fL (80.0-100.0); MEAN PLATELET VOLUME 9.2 fL (7.4-10.4); MONOCYTES 7.5 % (2-11); NEUTROPHILS 77.9 % (40-80); PLATELET COUNT 248 10x3/uL (130-400); RBC 3.08 10x6/uL (4.20-6.10)
[2018-03-15 05:29] LABS: ANION GAP 16.9 mmol/L (8-16); CALCIUM 8.5 mg/dL (8.5-10.1); CARBON DIOXIDE 26.4 mmol/L (21.0-32.0); CREATININE - SERUM 7.9 mg/dL (0.6-1.3); POTASSIUM - SERUM 5.3 mmol/L (3.5-5.1); VANCOMYCIN - RANDOM 21.1 ug/mL (10.0-20.0)
[2018-03-15 09:00] VITALS: BP 118/44
[2018-03-15 18:44] VITALS: BP 117/47
[2018-03-15 20:00] VITALS: BP 126/32
[2018-03-16 00:09] VITALS: BP 140/33
[2018-03-16 04:00] VITALS: BP 130/65
[2018-03-16 06:02] LABS: BASOPHILS 0.1 % (0-2); EOSINOPHILS 3.4 % (0-7); HEMATOCRIT 26.7 % (42.0-54.0); HEMOGLOBIN 8.3 g/dL (13.5-17.5); IMMATURE GRANULOCYTES 0.9 % (0-5); LYMPHOCYTES 11.4 % (15-50); MCH 26.6 pg (26.0-34.0); MCHC 31.1 g/dL (31.0-37.0); MCV 85.6 fL (80.0-100.0); MEAN PLATELET VOLUME 9.3 fL (7.4-10.4); MONOCYTES 5.3 % (2-11); NEUTROPHILS 78.9 % (40-80); PLATELET COUNT 207 10x3/uL (130-400); RBC 3.12 10x6/uL (4.20-6.10); RDW 16.1 % (11.5-14.5); WBC 10.8 10x3/uL (4.8-10.8)
[2018-03-16 06:30] LABS: ANION GAP 16.8 mmol/L (8-16); CALCIUM 8.3 mg/dL (8.5-10.1); CREATININE - SERUM 6.5 mg/dL (0.6-1.3); POTASSIUM - SERUM 4.8 mmol/L (3.5-5.1); VANCOMYCIN - RANDOM 17.6 ug/mL (10.0-20.0)
[2018-03-16 08:17] VITALS: BP 126/45
[2018-03-16 11:05] VITALS: BP 128/55
== END 2018-03-16 12:39 | DRG 177 ==
LOC: D.ICU 17:45 → D.M2 03-01 12:01 → D.SDCHOLD 03-07 10:08 → D.M2 03-07 10:11
PROVIDERS: Internal Medicine; Internal Medicine Nephrology
PROC: 5A09457 Assistance with Respiratory Ventilation, 24-96 Consecutive Hours, Continuous Positive Airway Pressure (ICD-10-PCS; principal; 2018-02-24)
DX: J69.0 Pneumonitis due to inhalation of food and vomit (principal); N18.6 End stage renal disease; J96.01 Acute respiratory failure with hypoxia; I63.9 Cerebral infarction, unspecified; I12.0 Hypertensive chronic kidney disease with stage 5 chronic kidney disease or end stage renal disease; J44.1 Chronic obstructive pulmonary disease with (acute) exacerbation; I69.351 Hemiplegia and hemiparesis following cerebral infarction affecting right dominant side; I62.9 Nontraumatic intracranial hemorrhage, unspecified; D68.9 Coagulation defect, unspecified; J98.11 Atelectasis; I50.30 Unspecified diastolic (congestive) heart failure; E11.22 Type 2 diabetes mellitus with diabetic chronic kidney disease; Z99.2 Dependence on renal dialysis; Z66 Do not resuscitate; E78.5 Hyperlipidemia, unspecified; E87.5 Hyperkalemia; D69.6 Thrombocytopenia, unspecified; N40.0 Benign prostatic hyperplasia without lower urinary tract symptoms; I48.91 Unspecified atrial fibrillation; I25.10 Atherosclerotic heart disease of native coronary artery without angina pectoris; R53.81 Other malaise; I34.0 Nonrheumatic mitral (valve) insufficiency; D72.829 Elevated white blood cell count, unspecified; E83.39 Other disorders of phosphorus metabolism; Z72.0 Tobacco use

== ENCOUNTER 2018-03-16 12:31 | Emergency (ER) | payer MEDICARE, OTHER ==
[~2018-03-16 12:31] MED LIST changes: +BACLOFEN10 MG PO; +BASAGLAR K100 UNIT/1 SC; +BENICAR20 MG PO; +CALMOSEPTINE OI71 GM TOPICAL; +HUMALOG 30100 UNITS/ SC; +LASIX20 MG PO; +MEGACE400 MG/10 PO; +NIFEDIPINE30 MG/BOT1 PO; +PHOSLO667 MG PO; +PROTONIX40 MG PO; +SINGULAIR10 MG PO; +ULTRAM50 MG PO
[2018-03-16 13:04] VITALS: Ht 170.2 cm
[2018-03-16 14:33] VITALS: BP 130/53
== END 2018-03-16 14:20 ==
LOC: D.ER 12:31
DX: R53.1 Weakness (principal); Z91.81 History of falling; Z86.73 Personal history of transient ischemic attack (TIA), and cerebral infarction without residual deficits; E11.9 Type 2 diabetes mellitus without complications; I25.10 Atherosclerotic heart disease of native coronary artery without angina pectoris; I12.0 Hypertensive chronic kidney disease with stage 5 chronic kidney disease or end stage renal disease; N18.6 End stage renal disease

== ENCOUNTER 2018-03-17 21:05 | Observation (INO) | payer MEDICARE, OTHER ==
[~2018-03-17] VITALS: Ht 170.2 cm; Wt 100.0 kg
--- NOTE | ~2018-03-17 | MORECARE ---
CASE MANAGEMENT DISCHARGE SUMMARY PATIENT: OKSANA JENNINGS UNIT: [id number] ADM DATE: 03/17/18 AGE: 77 : 38 SEX: M ROOM/BED: D.2139 AUTHOR: GEORGIA HOOD PHYSICIAN: REFERRING PHYSICIAN: GINETTE SIU MD DATE OF SERVICE: 03/18/18 Discharge Plan Patient Name: OKSANA JENNINGS [facility] [facility] 1940 Planned Disposition: Half-Way Facility Anticipated Discharge Date: 03/18/18 Discharge Date: Expected LOS: 1 Initial Reviewer: [email or web address] Initial Review Date: 03/17/2018 Generated: 03/18/18 7:31 pm Patient Name: OKSANA JENNINGS Page [id number] at 1831 All edits/amendments must be made on the electronic document DICTATION DATE: 03/18/181830 SENIOR TRAINER: MELISSA 03/18/181830 RPT#: [id number] DC DATE: STATUS: ADM IN [facility] [address] [place] [address] END OF REPORT
--- NOTE | ~2018-03-17 | MORECARE ---
CASE MANAGEMENT DISCHARGE SUMMARY PATIENT: OKSANA JENNINGS UNIT: [id number] ADM DATE: 03/17/18 AGE: 77 : 38 SEX: M ROOM/BED: D.5162 AUTHOR: GEORGIA HOOD PHYSICIAN: REFERRING PHYSICIAN: GINETTE SIU MD DATE OF SERVICE: 03/20/18 Discharge Plan Patient Name: OKSANA JENNINGS Facility: [facility]:[place] : 1940 Planned Disposition: Fci Facility Anticipated Discharge Date: 03/19/18 Discharge Date: 03/19/2018 Expected LOS: 2 Initial Reviewer: [email or web address] Initial Review Date: 03/17/2018 Generated: 03/20/18 12:51 pm Comments DCP- Discharge Planning Updated by [email or web address]: Kim Joy on 03/19/18 11:[address] LATE ENTRY 0840 DIALYSIS COMPLETED LATE LAST NIGHT THEREFORE [facility]. PLS REFERENCE 03/18 FOR DETAILS. DCP- Discharge Planning Updated by [id number]: Kim Joy on 03/18/18 5:[address] LATE ENTRY 1214 [facility]. SPOKE WITH SMOOTH. FAXED CLINICAL FOR REVIEW. SHE WILL ADVISE IF PATIENT MAY RETURN TODAY. PHONE [phone] FAX [phone] SHE HAD QUESTIONS REGARDING HIS DIAGNOSIS AND TREATMENT PLAN. VOICED CONCERNS ABOUT HIS BOWEL MOVEMENTS. CM ASK FOR ANESTHETIC ASSISTANT TO SPEAK WITH THE NURSE REGARDING HER CLINICAL ISSUES. CM FAXED I/O SHEET FOR THIS ADMISSION AND HIS PREVIOUS ADMISSION REGARDING BOWEL MOVEMENTS. PATIENT HAD BEEN DISCHARGED TO FACILITY ON 03/17 THEN READMITTED 03/18. RECEIVED [place] [address]. PATIENT WENT TO HD AT 1800. AWAIT COMPLETION TO POSSIBLY DISCHARGE THIS LATE PM BY AMBULANCE. Last DP export: 03/19/18 11:55 Patient Name: OKSANA JENNINGS Page [id number] at 1151 All edits/amendments must be made on the electronic document DICTATION DATE: 03/20/18 1150 JEWEL WAXER: MELISSA 03/20/18 1150 RPT#: [id number] DC DATE:03/19/18 STATUS: DIS IN [facility] [address] [place] [address] END OF REPORT
--- NOTE | ~2018-03-17 | MORECARE ---
CASE MANAGEMENT DISCHARGE SUMMARY PATIENT: OKSANA JENNINGS UNIT: [id number] ADM DATE: 03/17/18 AGE: 77 : 38 SEX: M ROOM/BED: D.9671 AUTHOR: GEORGIA HOOD PHYSICIAN: REFERRING PHYSICIAN: GINETTE SIU MD DATE OF SERVICE: 03/19/18 Discharge Plan Patient Name: OKSANA JENNINGS Facility: [facility]:[place] : 1940 Planned Disposition: Assisted Facility Anticipated Discharge Date: 03/18/18 Discharge Date: 03/19/2018 Expected LOS: 1 Initial Reviewer: [id number] Initial Review Date: 03/17/2018 Generated: 03/19/18 1:54 pm Comments DCP- Discharge Planning Updated by [email or web address]: Kim Joy on 03/19/18 11:[address] LATE ENTRY 0840 DIALYSIS COMPLETED LATE LAST NIGHT THEREFORE [facility]. PLS REFERENCE 03/18 FOR DETAILS. DCP- Discharge Planning Updated by [id number]: Kim Joy on 03/18/18 5:[address] LATE ENTRY 1214 TC [facility]. SPOKE WITH SMOOTH. FAXED CLINICAL FOR REVIEW. SHE WILL ADVISE IF PATIENT MAY RETURN TODAY. PHONE [phone] FAX [phone] SHE HAD QUESTIONS REGARDING HIS DIAGNOSIS AND TREATMENT PLAN. VOICED CONCERNS ABOUT HIS BOWEL MOVEMENTS. CM ASK FOR ROUTE SERVICE REPRESENTATIVE TO SPEAK WITH THE NURSE REGARDING HER CLINICAL ISSUES. CM FAXED I/O SHEET FOR THIS ADMISSION AND HIS PREVIOUS ADMISSION REGARDING BOWEL MOVEMENTS. PATIENT HAD BEEN DISCHARGED TO FACILITY ON 03/17 THEN READMITTED 03/18. RECEIVED [place] [address]. PATIENT WENT TO HD AT 1800. AWAIT COMPLETION TO POSSIBLY DISCHARGE THIS LATE PM BY AMBULANCE. Last DP export: 03/18/18 5:45 Patient Name: OKSANA JENNINGS Page 58601 at 1258 All edits/amendments must be made on the electronic document DICTATION DATE: 03/19/18 1254 CLAIMS VICE PRESIDENT: MELISSA 03/19/18 1254 RPT#: [id number] DC DATE:03/19/18 STATUS: DIS IN [facility] [address] [place] [address] END OF REPORT
--- NOTE | ~2018-03-17 | MORECARE ---
CASE MANAGEMENT DISCHARGE SUMMARY PATIENT: OKSANA JENNINGS UNIT: [id number] ADM DATE: 03/17/18 AGE: 77 : 38 SEX: M ROOM/BED: D.213 AUTHOR: GEORGIA HOOD PHYSICIAN: REFERRING PHYSICIAN: GINETTE SIU MD DATE OF SERVICE: 03/23/18 Discharge Plan Patient Name: OKSANA JENNINGS Facility: [facility]:[place] : 1940 Planned Disposition: Snf Facility Anticipated Discharge Date: 03/19/18 Discharge Date: 03/19/2018 Expected LOS: 2 Initial Reviewer: [id number] Initial Review Date: 03/17/2018 Generated: 03/23/18 12:51 pm Comments DCP- Discharge Planning Updated by [email or web address]: Karolina Lozano on 03/23/18 10:[address] Per coders request, CRISTY called [facility] and verified that patient was admitted to a Medicare (SNF) bed. DCP- Discharge Planning Updated by [email or web address]: Kim Joy on 03/19/18 11:[address] LATE ENTRY 0840 DIALYSIS COMPLETED LATE LAST NIGHT THEREFORE [facility]. PLS REFERENCE 03/18 FOR DETAILS. DCP- Discharge Planning Updated by [email or web address]: Kim Joy on 03/18/18 5:[address] LATE ENTRY 1214 TC [facility]. SPOKE WITH SMOOTH. FAXED CLINICAL FOR REVIEW. SHE WILL ADVISE IF PATIENT MAY RETURN TODAY. PHONE [phone] FAX [phone] SHE HAD QUESTIONS REGARDING HIS DIAGNOSIS AND TREATMENT PLAN. VOICED CONCERNS ABOUT HIS BOWEL MOVEMENTS. CM ASK FOR MEDICAL ANTHROPOLOGY DIRECTOR TO SPEAK WITH THE NURSE REGARDING HER CLINICAL ISSUES. CM FAXED I/O SHEET FOR THIS ADMISSION AND HIS PREVIOUS ADMISSION REGARDING BOWEL MOVEMENTS. PATIENT HAD BEEN DISCHARGED TO FACILITY ON 03/17 THEN READMITTED 03/18. [place] [address]. PATIENT WENT TO HD AT 1800. AWAIT COMPLETION TO POSSIBLY DISCHARGE THIS LATE PM BY AMBULANCE. Last DP export: 03/20/18 10:51 Patient Name: OKSANA JENNINGS Page 42826 at 1151 All edits/amendments must be made on the electronic document DICTATION DATE: 03/23/18 115 WILD LIFE MANAGER: MELISSA 03/23/18 1150 RPT#: [id number] DC DATE:03/19/18 STATUS: DIS IN [facility] [address] [place] [address] END OF REPORT
--- NOTE | ~2018-03-17 | MORECARE ---
CASE MANAGEMENT DISCHARGE SUMMARY PATIENT: OKSANA JENNINGS UNIT: [id number] ADM DATE: 03/17/18 AGE: 77 : 38 SEX: M ROOM/BED: D.2139 AUTHOR: GEORGIA HOOD PHYSICIAN: REFERRING PHYSICIAN: GINETTE SIU MD DATE OF SERVICE: 03/18/18 Discharge Plan Patient Name: OKSANA JENNINGS [facility] : 1940 Planned Disposition: [facility]ci Facility Anticipated Discharge Date: 03/18/18 Discharge Date: Expected LOS: 1 Initial Reviewer: [id number] Initial Review Date: 03/17/2018 Generated: 03/18/18 7:45 pm Comments DCP- Discharge Planning Updated by [email or web address]: Kim Joy on 03/18/18 5:[address] LATE ENTRY 1214 [facility] SPOKE WITH SMOOTH. FAXED CLINICAL FOR REVIEW. SHE WILL ADVISE IF PATIENT MAY RETURN TODAY. PHONE [phone] FAX [phone] SHE HAD QUESTIONS REGARDING HIS DIAGNOSIS AND TREATMENT PLAN. VOICED CONCERNS ABOUT HIS BOWEL MOVEMENTS. CM ASK FOR WOOL WASHER FEEDER TO SPEAK WITH THE NURSE REGARDING HER CLINICAL ISSUES. CM FAXED I/O SHEET FOR THIS ADMISSION AND HIS PREVIOUS ADMISSION REGARDING BOWEL MOVEMENTS. PATIENT HAD BEEN DISCHARGED TO FACILITY ON 03/17 THEN READMITTED 03/18. [place] [address]. PATIENT WENT TO HD AT 1800. AWAIT COMPLETION TO POSSIBLY DISCHARGE THIS LATE PM BY AMBULANCE. Last DP export: 03/18/18 5:31 Patient Name: OKSANA JENNINGS Page 19963 at 1842 All edits/amendments must be made on the electronic document DICTATION DATE: 03/18/181843 FLOOR COVERING PRINTER: MELISSA 03/18/181843 RPT#: [id number] DC DATE: STATUS: ADM IN [facility] [address] [place] [address] END OF REPORT
[2018-03-18] VITALS: BP 112/85
[2018-03-18 00:40] LABS: BASOPHILS 0.2 % (0-2); EOSINOPHILS 2.4 % (0-7); HEMATOCRIT 26.7 % (42.0-54.0); HEMOGLOBIN 8.1 g/dL (13.5-17.5); IMMATURE GRANULOCYTES 0.9 % (0-5); LYMPHOCYTES 10.9 % (15-50); MCH 26.2 pg (26.0-34.0); MCHC 30.3 g/dL (31.0-37.0); MCV 86.4 fL (80.0-100.0); MEAN PLATELET VOLUME 9.2 fL (7.4-10.4); MONOCYTES 5.4 % (2-11); NEUTROPHILS 80.2 % (40-80); PLATELET COUNT 213 10x3/uL (130-400); RBC 3.09 10x6/uL (4.20-6.10); RDW 16.1 % (11.5-14.5); WBC 10.4 10x3/uL (4.8-10.8)
[2018-03-18 00:55] LABS: ALBUMIN 2.1 g/dL (3.4-5.0); ANION GAP 15.6 mmol/L (8-16); BILIRUBIN - TOTAL 0.47 mg/dL (0.2-1.3); CALCIUM 8.2 mg/dL (8.5-10.1); CARBON DIOXIDE 29.7 mmol/L (21.0-32.0); CREATININE - SERUM 8.1 mg/dL (0.6-1.3); MAGNESIUM - SERUM 2.5 mg/dL (1.8-2.4); POTASSIUM - SERUM 5.3 mmol/L (3.5-5.1); PROTEIN - SERUM 5.7 g/dL (6.4-8.2)
[2018-03-18 05:49] VITALS: BP 114/81
[2018-03-18 08:01] VITALS: BP 143/53
[2018-03-18] MEDS ORDERED: PACERONE100 MG PO (11:13)
[2018-03-18] MEDS ORDERED: SENNA LAXATIVE8.6 MG PO (11:16)
[2018-03-18 11:17] VITALS: BP 119/45
[2018-03-18 15:23] VITALS: BP 124/55
[2018-03-18 20:30] VITALS: BP 120/47
[2018-03-19 00:30] VITALS: BP 116/54
[2018-03-19 00:52] VITALS: BP 124/47; Ht 170.2 cm; Wt 100.0 kg
[2018-03-19 04:30] VITALS: BP 124/50
[2018-03-19 08:16] VITALS: BP 122/45
== END 2018-03-19 08:35 ==
LOC: D.ER 21:05 → D.EDHOLD 22:29 → OBSVTIME 22:29 → D.M2 22:42
PROVIDERS: Internal Medicine Nephrology
DX: I95.9 Hypotension, unspecified (principal); Z86.73 Personal history of transient ischemic attack (TIA), and cerebral infarction without residual deficits; E11.40 Type 2 diabetes mellitus with diabetic neuropathy, unspecified; E11.22 Type 2 diabetes mellitus with diabetic chronic kidney disease; I12.0 Hypertensive chronic kidney disease with stage 5 chronic kidney disease or end stage renal disease; N18.6 End stage renal disease; Z99.2 Dependence on renal dialysis; I25.10 Atherosclerotic heart disease of native coronary artery without angina pectoris; N40.0 Benign prostatic hyperplasia without lower urinary tract symptoms; R53.1 Weakness